=== PATIENT | female | born 1960 | race Caucasian/White ===

== ENCOUNTER 2021-12-21 10:06 | Emergency (ER) | payer MEDICARE, MEDICAID, SELFPAY ==
[2021-12-21 10:30] VITALS: BP 149/84; PULSE 75; RESP 18; TEMP 36.8; O2SAT 92; BMI 35.4
[2021-12-21 10:37] VITALS: BP 170/95; PULSE 70; RESP 18; O2SAT 94
--- NOTE | 2021-12-21 10:39 | ECG_ITS ---
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 Measurements Intervals [place] Rate: 71 P: 58 ID: [id number] QRS: 7 QRSD: 134 T: 59 QT: 428 QTc: 468 Interpretive Statements SINUS RHYTHM RIGHT BUNDLE BRANCH BLOCK [120+ ms QRS DURATION, UPRIGHT V1, 40+ ms S IN I/aVL/V4/V5/V6] POSSIBLE ANTERIOR MYOCARDIAL INFARCTION , OF INDETERMINATE AGE [30 ms Q WAVE IN V3/V4, OR R < 0.2 mV IN V4] Compared to ECG 05/03/2018 12:48:47 Indeterminate axis no longer present Myocardial infarct finding still present Electronically Signed On 12-21-2021 18:25:03 CDT by Angela Romero M.D. [id number]
--- NOTE | 2021-12-21 10:39 | CT_ITS ---
WS: [id number] CT HEAD TECHNIQUE: Noncontrast CT of the head obtained from the skullbase to the vertex. CLINICAL INFORMATION: weakness and multiple falls recently COMPARISON: CT DLP: 1702.[address] scans at [facility] use at least one of these dose optimization techniques: automated e xposure control; mA and/or kV adjustment per patient size (includes targeted exams where dose is matc hed to clinical indication); or iterative reconstruction. FINDINGS: No evidence of intracranial hemorrhage or mass effect. Prior postoperative changes LEFT frontotempora l craniotomy. Underlying encephalomalacia. Ex vacuo dilatation LEFT lateral ventricle. This is unchan ged from previous. Unchanged encephalomalacia in the underlying LEFT frontal lobe and LEFT anterior t emporal lobe. 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 Moderate small vessel changes. Moderate parenchymal volume loss. Tiny chronic lacunar infarcts RIGHT basal ganglia and thalamus. Paranasal sinuses and mastoid air cells are well aerated. Normal posterio r nasopharynx. CT/CT head wo con* [id number] IMPRESSION: 1. No evidence of intracranial hemorrhage or mass effect. 2. No acute intracranial findings and no changes from . 3. Moderate small vessel changes with moderate parenchymal volume loss. 4. Prior postoperative changes LEFT MCA and anterior communicating artery aneu rysm clips. 5. LEFT frontal temporal craniotomy with underlying encephalomalacia and ex va cuo dilatation LEFT lateral ventricle unchanged.
--- NOTE | 2021-12-21 10:39 | XR_ITS ---
WS: [id number] XR chest 1V portable [id number] REASON FOR EXAM: weakness FINDINGS: Chest is unchanged compared to 05/03/2018. Moderate tortuosity the thoracic aorta without aneurysmal dilatation. The heart is not enlarged. No acute pulmonary parenchymal or pleural abnormality. Mild to moderate degenerative spondylosis in the mid and lower thoracic spine. XR/XR chest 1V portable [id number] IMPRESSION: No acute chest abnormality.
--- NOTE | 2021-12-21 10:56 | W.ED.WEAKNES ---
HPI - Weakness General: Chief complaint: Weakness Stated complaint: DIZZY/ WEAK/ CONFUSED Time Seen by Provider: 12/21/21 10:39 History of Present Illness: Patient is a 61-year-old female comes to the ED via EMS for generalized weakness. Patient is a resident at [facility]. Past medical history of vascular dementia, seizure disorder, COPD. Patient says she has been having a cough and shortness of breath for the past week. She says her cough is productive and she has a yellow sputum that she coughs up. She also endorses generalized weakness as well. This morning she was walking out of the bathroom and accidentally ran into edge of door causing her to fall backwards. She landed on her buttocks and says that she is having some left hip pain. Denies any head trauma or loss of consciousness. Associated symptoms: Denies chest pain, chills, dysuria, fever(s), headache(s), nausea or vomiting Review of Systems Const: Reports: fatigue (Generalized weakness); Denies: fever(s) or chills Eyes: Denies: change in vision or eye discomfort ENMT: Denies: throat pain, odynophagia, nasal discharge or nasal congestion Card: Denies: chest pain, palpitations, edema, swelling of feet/ankles, dyspnea on exertion or orthopnea Resp: Denies: dyspnea, productive cough or non-productive cough GI: Denies: abdominal pain, nausea, vomiting, diarrhea, constipation or hematochezia : Denies: flank pain, dysuria or hematuria Musc: Reports: extremity pain (left hip pain); Denies: neck pain, back pain or extremity swelling Skin/Breast: Denies: rash or new lesions Neuro: Denies: headache(s), numbness in extremities or weakness in extremities PFS ED PFSH: Medical History COPD (chronic obstructive pulmonary disease) CVA (cerebral vascular accident) Dementia, vascular GERD (gastroesophageal reflux disease) HTN (hypertension) Hyperlipidemia Incontinence in female Seizure disorder Vitamin D deficiency Surgical History H/O brain surgery H/O excision of epidermal inclusion cyst History of 2 sections Family History Brother Hodgkins disease Father Stroke Physical Exam Const: COMMON NORMALS: patient oriented x3 and alert GENERAL APPEARANCE: cooperative HENMT: COMMON NORMALS: normocephalic HEAD & SCALP: normocephalic MOUTH: Normal oral and palatal mucosa present THROAT: posterior oropharynx normal and uvula midline Neck/C-Spine: COMMON NORMALS: supple GENERAL: Yes normal visual inspection Resp: COMMON NORMALS: normal respiratory effort, No retractions and No use of accessory muscles AUSCULTATION: wheezes expiratory wheezes and throughout Cardio: COMMON NORMALS: regular rate, regular rhythm, S1 normal heart sound present, S2 normal heart sound present, No gallops present (Cardio), No clicks present (Cardio), No murmurs present (Cardio) and Peripheral pulses 2+ throughout RATE: regular rate RHYTHM: regular rhythm HEART SOUNDS: S1 normal heart sound present and S2 normal heart sound present PERIPHERAL PULSES: Peripheral pulses 2+ throughout GI: COMMON NORMALS: Normal to inspection, nondistended, normoactive bowel sounds present, Soft to palpation, non-tender and no masses PALPATION: Yes Soft to palpation : COMMON NORMALS: Yes no CVA tenderness BLADDER/KIDNEY EXAM: Yes no CVA tenderness Back/Pelvis: COMMON NORMALS: no CVA tenderness Extremity: COMMON NORMALS: normal to inspection Neuro: COMMON NORMALS: patient oriented x3 and moves all extremities SENSORIUM/ORIENTATION: Yes alert Skin: GENERAL SKIN EXAM: dry skin Course Vital Signs: Vital signs: Vital Signs Temperature 98.2 F 12/21/21 10:30 Pulse Rate 75 12/21/21 16:14 Respiratory Rate 18 12/21/21 16:14 Blood Pressure 148/82 12/21/21 16:14 Pulse Oximetry 92 12/21/21 16:14 MDM - Weakness Medical Decision Making Patient is a 61-year-old female comes to the ED via EMS for generalized weakness. Patient is a resident at [facility]. Past medical history of vascular dementia, seizure disorder, COPD. Patient says she has been having a cough, shortness of breath and generalized weakness for the past week. This morning she had an accidental fall in the bathroom when she bumped into a door in endorses some left hip pain. Vitals are stable. O2 sat has been above 92% on room air here in the ED. Patient does have some wheezing upon auscultation. CBC and CMP were unremarkable. D-dimer normal at 0.41. Covid was negative. Troponins negative. UA was unremarkable. BNP 57. EKG showed normal sinus rhythm with no ST segment elevation or depression seen. Chest x-ray showed no acute findings. Head CT showed no acute findings. Left hip x-ray showed no acute fractures. Patient was stable for discharge back to detention. Patient diagnosed with bronchitis and fall and was sent with a prescription for prednisone and doxycycline. She was told to follow-up with their PCP in the next 3 to 5 days for reevaluation. Return to ED precautions given. Patient understood and agreed with plan. Lab Data I reviewed the patient's lab results. : 12/21/21 10:54 12/21/21 10:54 Radiology Impressions Chest X-Ray 12/21/21 10:39 IMPRESSION: No acute chest abnormality. Head CT 12/21/21 10:39 IMPRESSION: 1. No evidence of intracranial hemorrhage or mass effect. 2. No acute intracranial findings and no changes from . 3. Moderate small vessel changes with moderate parenchymal volume loss. 4. Prior postoperative changes LEFT MCA and anterior communicating artery aneurysm clips. 5. LEFT frontal temporal craniotomy with underlying encephalomalacia and ex vacuo dilatation LEFT lateral ventricle unchanged. Hip/Pelvis X-Ray 12/21/21 11:09 IMPRESSION: No acute abnormality. Laboratory Results WBC 7.0 10^3/uL (4.0-10.0) 12/21/21 10:54 RBC 4.87 10^6/uL (4.1-5.3) 12/21/21 10:54 Hgb 14.4 g/dL (11.5-15.3) 12/21/21 10:54 Hct 43.4 % (37.0-47.0) 12/21/21 10:54 MCV 89.1 fl (81-99) 12/21/21 10:54 MCH 29.6 pg (28.0-34.0) 12/21/21 10:54 MCHC 33.2 g/dL (30.0-36.0) 12/21/21 10:54 RDW 13.7 % (12.1-15.1) 12/21/21 10:54 Plt Count 210 10^3/cmm (130-400) 12/21/21 10:54 MPV 10.7 fL (7.4-10.4) H 12/21/21 10:54 Neut % (Auto) 54.4 % 12/21/21 10:54 Lymph % (Auto) 32.0 % 12/21/21 10:54 [place] % (Auto) 7.3 % 12/21/21 10:54 Eos % (Auto) 5.1 % 12/21/21 10:54 Baso % (Auto) 0.9 % 12/21/21 10:54 Neut # (Auto) 3.82 10^3/uL (1.8-7.7) 12/21/21 10:54 Lymph # (Auto) 2.2 10^3/uL (0.8-4.8) 12/21/21 10:54 [place] # (Auto) 0.5 10^3/uL (0.2-0.9) 12/21/21 10:54 Eos # (Auto) 0.4 10^3/uL (0.0-0.8) 12/21/21 10:54 Baso # (Auto) 0.1 10^3/uL (0.0-0.1) 12/21/21 10:54 Nucleated RBC % (auto) 0 % 12/21/21 10:54 Nucleated RBCs # 0.0 /100WBC 12/21/21 10:54 D-Dimer 0.41 ug/mIFEU (0-0.59) 12/21/21 11:55 Sodium 144 mmol/L (136-145) 12/21/21 10:54 Potassium 3.9 mmol/L (3.5-5.1) 12/21/21 10:54 Chloride 107 mmol/L (98-107) 12/21/21 10:54 Carbon Dioxide 27 mmol/L (22-29) 12/21/21 10:54 Anion Gap 13.9 (5-19) 12/21/21 10:54 BUN 11 mg/dL (8-23) 12/21/21 10:54 Creatinine 0.8 mg/dL (0.5-0.9) 12/21/21 10:54 GFR Calculation 72.9 mL/min (90-130) L 12/21/21 10:54 Glucose 100 mg/dL (65-115) 12/21/21 10:54 Calculated Osmolality 297 mOsm/kg (285-295) H 12/21/21 10:54 Calcium 9.2 mg/dL (8.5-10.5) 12/21/21 10:54 Total Bilirubin 0.3 mg/dL (0.15-1.2) 12/21/21 10:54 AST 18 U/L (0-32) 12/21/21 10:54 ALT 15 U/L (0-33) 12/21/21 10:54 Alkaline Phosphatase 112 IU/L (35-105) H 12/21/21 10:54 Troponin T Baseline 15 ng/L (0-10) H 12/21/21 10:54 Troponin T 120 Minute 15.30 ng/L (0-10) H 12/21/21 12:34 Delta Troponin T 0.30 ABS# (0-10) 12/21/21 12:34 NT-Pro-B Natriuret Pep 57 pg/mL (0-125) 12/21/21 10:54 Total Protein 7.1 g/dL (6.6-8.7) 12/21/21 10:54 Albumin 3.7 g/dL (3.5-5.2) 12/21/21 10:54 Globulin 3.4 g/dL (1.3-4.6) 12/21/21 10:54 Lipase 16 U/L (13-60) 12/21/21 10:54 Urine Color Yellow (Yellow) 12/21/21 14:58 Urine Appearance Clear (CLEAR) 12/21/21 14:58 Urine pH 6.5 (5-7) 12/21/21 14:58 Ur Specific [place] 1.015 (1.005-1.030) 12/21/21 14:58 Urine Protein Neg (Negative) 12/21/21 14:58 Urine Glucose (UA) Norm (Normal) 12/21/21 14:58 Urine Ketones Negative (Negative) 12/21/21 14:58 Urine Blood Neg (Negative) 12/21/21 14:58 Urine Nitrate Negative (Negative) 12/21/21 14:58 Urine Bilirubin Neg (Negative) 12/21/21 14:58 Urine Urobilinogen 1 mg/dL (Negative) H 12/21/21 14:58 Ur Leukocyte Esterase Negative (Negative) 12/21/21 14:58 Nasal Influ A H1 2009 PCR Not detected (NOT DETECT) 12/21/21 11:25 Coronavirus 229E (PCR) Not detected (NOT DETECT) 12/21/21 11:25 Influenza A (H1) PCR Not detected (NOT DETECT) 12/21/21 11:25 Influenza A (H3) PCR Not detected (NOT DETECT) 12/21/21 11:25 Influenza Type A (PCR) Not detected (NOT DETECT) 12/21/21 11:25 Influenza Type B (PCR) Not detected (NOT DETECT) 12/21/21 11:25 SARS-CoV-2 (PCR) Not detected (NOT DETECT) 12/21/21 11:25 EKG Data EKG 1: EKG interpretation date: 12/21/21 Interpretation: Sinus rhythm, no ST segment elevation or depression seen. 71 bpm Discharge Plan Discharge Patient Disposition: Home Clinical Impression: Bronchitis Fall Qualifiers: Encounter type: initial encounter Qualified Code(s): W19.XXXA - Unspecified fall, initial encounter Condition: Stable Prescriptions: New doxycycline hyclate 100 mg capsule 100 mg PO BID 10 Days Qty: 20 0RF prednisone 20 mg tablet 20 mg PO BID 5 Days Qty: 10 0RF No Action clopidogrel [Plavix] 75 mg tablet 75 mg PO DAILY 0RF ergocalciferol (vitamin D2) 50,000 unit tablet See Rx Instructions PO .COMPLEX 0RF Rx Instructions: one tablet po weekly on Sunday PO ; lamotrigine 150 mg tablet 75 mg PO BID 0RF pantoprazole 20 mg tablet,delayed release (DR/EC) 20 mg PO BID 0RF budesonide-formoterol [Symbicort] 80-4.5 mcg/actuation HFA aerosol inhaler 2 puff INHALATION BID 0RF tamsulosin 0.4 mg capsule 0.4 mg PO DAILY 0RF quetiapine [Seroquel] 100 mg tablet 100 mg PO .hs 0RF simvastatin 20 mg tablet 20 mg PO DAILY 0RF metoprolol succinate [Toprol XL] 50 mg tablet extended release 24 hr 50 mg PO DAILY 0RF acetaminophen [Tylenol Extra Strength] 500 mg tablet 500 - 1,000 mg PO Q4H PRN0RF Rx Instructions: for pain or elevated temp dextromethorphan-guaifenesin [Diabetic Tussin DM] 10-100 mg/5 mL liquid 10 ml PO Q4H PRN0RF nystatin 100,000 unit/gram powder 1 applic TOPICAL DAILY 0RF doxycycline monohydrate 100 mg capsule 100 mg PO BID Qty: 14 0RF albuterol sulfate 90 mcg/actuation HFA aerosol inhaler 2 puff inhalation 6XD PRN (Reason: shortness of breath or wheezing) Qty: 8.5 0RF quetiapine [Seroquel] 50 mg tablet 50 mg PO .AM Qty: 30 0RF Discharge Orders: Discharge ED (Routine); Ordered 12/21/21 Ordered By: Shakir Aquino Referrals: Jr Cardenas MD [Primary Care Provider] - Discharge Diet: Regular Discharge Activity: Increase activity as tolerated Patient Instructions: Acute Bronchitis (ED) Activity Restrictions/Additional Instructions: Follow-up with medical provider as directed in the next 3 to 5 days for reevaluation. Take medications as prescribed. Return to the ER or your medical provider if condition worsens. Please read and understand discharge instructions. Thank you for choosing [facility] for your healthcare needs today. Please realize this is an emergency room and that we are providing you with a medical screening exam and this may not be complete and all inclusive of all the testing and or work up that you may need to determine your ailment or severity of your illness. It is very important that you follow up as instructed or that you return to the Emergency Department should you have concerns or if your condition changes or worsens in any way. Coding Level of Care Code ED Public Health Technologist for Donna Fwd Exam Comprehensive
[2021-12-21 11:00] LABS: Basophils # 0.1 10^3/uL (0.0-0.1); Basophils % 0.9 %; Eosinophils # 0.4 10^3/uL (0.0-0.8); Eosinophils % 5.1 %; Hematocrit 43.4 % (37.0-47.0); Hemoglobin 14.4 g/dL (11.5-15.3); Lymphocytes # 2.2 10^3/uL (0.8-4.8); Mean Corpuscular HGB Conc 33.2 g/dL (30.0-36.0); Mean Corpuscular Hemoglobin 29.6 pg (28.0-34.0); Mean Corpuscular Volume 89.1 fl (81-99); Mean Platelet Volume 10.7 fL (7.4-10.4); Monocytes # 0.5 10^3/uL (0.2-0.9); Monocytes % 7.3 %; Neutrophils # 3.82 10^3/uL (1.8-7.7); Neutrophils % 54.4 %; Nucleated Red Blood Cells % 0 %; Platelet Count 210 10^3/cmm (130-400); Red Blood Count 4.87 10^6/uL (4.1-5.3); Red Cell Distribution Width 13.7 % (12.1-15.1)
--- NOTE | 2021-12-21 11:09 | XR_ITS ---
WS: [id number] XR hip LT 2-3V wo/w pel* [id number] REASON FOR EXAM: fall with hip pain FINDINGS: No acute fracture. Mild to moderate narrowing of the left hip joint space with subchondral sclerosis in the femoral head and acetabulum. Superior and inferior pubic ramus are intact. No soft tissue abnormality. XR/XR hip LT 2-3V wo/w pel* [id number] IMPRESSION: No acute abnormality.
[2021-12-21 11:21] LABS: Slide Review Slide Review Perform
[2021-12-21 11:23] LABS: Troponin(5th) Baseline 15 ng/L (0-10)
[2021-12-21 11:31] LABS: Alanine Aminotransferase 15 U/L (0-33); Albumin Level 3.7 g/dL (3.5-5.2); Alkaline Phosphatase 112 IU/L (35-105); Anion Gap 13.9 (5-19); Aspartate Amino Transferase 18 U/L (0-32); Blood Urea Nitrogen 11 mg/dL (8-23); Calcium 9.2 mg/dL (8.5-10.5); Carbon Dioxide 27 mmol/L (22-29); Chloride 107 mmol/L (98-107); Globulin 3.4 g/dL (1.3-4.6); Glomerular Filtration Rate 72.9 mL/min (90-130); Glucose 100 mg/dL (65-115); Lipase 16 U/L (13-60); NT Pro B Type Natriuretic Pept 57 pg/mL (0-125); Osmolality Calculated 297 mOsm/kg (285-295); Potassium 3.9 mmol/L (3.5-5.1); Sodium 144 mmol/L (136-145); Total Bilirubin 0.3 mg/dL (0.15-1.2); Total Protein 7.1 g/dL (6.6-8.7)
[2021-12-21] MEDS: ipratropium-albuterol 3 mL Neb 6 ML INHALATION (12:08)
[2021-12-21 12:10] VITALS: PULSE 67; RESP 22; O2SAT 99
[2021-12-21 12:12] VITALS: PULSE 76
[2021-12-21 12:22] LABS: D Dimer 0.41 ug/mIFEU (0-0.59)
--- NOTE | 2021-12-21 12:39 | ECG_ITS ---
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 Measurements Intervals [place] Rate: 68 P: 54 [place]: 162 QRS: 2 QRSD: 135 T: 62 QT: 442 QTc: 470 Interpretive Statements SINUS RHYTHM INDETERMINATE AXIS RIGHT BUNDLE BRANCH BLOCK POSSIBLE ANTERIOR MYOCARDIAL INFARCTION , OF INDETERMINATE AGE Compared to ECG 12/21/2021 10:49:43 Indeterminate axis now present Myocardial infarct finding still present Electronically Signed On 12-21-2021 18:30:23 CDT by Angela Romero M.D. [id number]
[2021-12-21 12:41] VITALS: BP 170/95; PULSE 68; RESP 21; O2SAT 96
[2021-12-21 13:25] LABS: Adenovirus Not Detected (NOT DETECT); Chlamydia Pneumoniae Not Detected (NOT DETECT); Coronavirus 229E,HKU1,NL63,OC4 Not Detected (NOT DETECT); Human Metapneumovirus Not Detected (NOT DETECT); Human Rhinovirus/Enterovirus Not Detected (NOT DETECT); Influenza A Not Detected (NOT DETECT); Influenza A H1 Not Detected (NOT DETECT); Influenza A H1-2009 Not Detected (NOT DETECT); Influenza A H3 Not Detected (NOT DETECT); Influenza B Not Detected (NOT DETECT); Mycoplasma Pneumoniae Not Detected (NOT DETECT); Parainfluenza Virus Type 1 Not Detected (NOT DETECT); Parainfluenza Virus Type 2 Not Detected (NOT DETECT); Parainfluenza Virus Type 3 Not Detected (NOT DETECT); Parainfluenza Virus Type 4 Not Detected (NOT DETECT); Respiratory Syncytial Virus A Not Detected (NOT DETECT); Respiratory Syncytial Virus B Not Detected (NOT DETECT); SARS-COV-2 Not Detected (NOT DETECT)
[2021-12-21 14:07] LABS: Results from Genmark
[2021-12-21 15:08] LABS: Add Urine Microscopic? NO; Charge for UA Resulting for Rev
[2021-12-21 15:31] LABS: Bilirubin Urine Neg (Negative); Blood Urine Neg (Negative); Glucose Urine UA Norm (Normal); Ketones Urine Negative (Negative); Leukocyte Esterase Urine Negative (Negative); Nitrate Urine Negative (Negative); Protein Urine Neg (Negative); Specific Gravity, Urine 1.015 (1.005-1.030); Urine Appearance Clear (CLEAR); Urine Color Yellow (Yellow); Urobilinogen Urine 1 mg/dL (Negative); pH Urine 6.5 (5-7)
[2021-12-21 16:14] VITALS: BP 148/82; PULSE 75; RESP 18; O2SAT 92
== END 2021-12-21 17:25 | disposition home or self-care (01) ==
PROVIDERS: Emergency Provider Physician Assistant; PCP Internal Medicine
DX: J44.9 Chronic obstructive pulmonary disease, unspecified (principal); F01.50 Vascular dementia, unspecified severity, without behavioral disturbance, psychotic disturbance, mood disturbance, and anxiety; G40.909 Epilepsy, unspecified, not intractable, without status epilepticus; I10 Essential (primary) hypertension; E78.5 Hyperlipidemia, unspecified; E55.9 Vitamin D deficiency, unspecified; Z86.73 Personal history of transient ischemic attack (TIA), and cerebral infarction without residual deficits
CPT/HCPCS: 70450; 71045; 73502; 80053; 81003; 83690; 83880; 84484; 85025; 85378; 87631; 87635; 93005; 94640; 99284

== ENCOUNTER → 2021-12-29 14:58 | Outpatient (BNVA) | payer MEDICARE, MEDICAID, SELFPAY | PROVIDERS: PCP Internal Medicine; Referring Provider Nurse Practitioner Family; Visit Provider Obstetrics & Gynecology | DX: Z01.419 Encounter for gynecological examination (general) (routine) without abnormal findings (principal) | CPT/HCPCS: 87624 ==

== ENCOUNTER 2022-04-11 09:42 | Outpatient (CLI) | payer MEDICARE, MEDICAID, SELFPAY ==
[2022-04-11 10:04] LABS: Basophils % 0.4 %; Eosinophils # 0.1 10^3/uL (0.0-0.8); Eosinophils % 1.2 %; Hematocrit 42.5 % (37.0-47.0); Hemoglobin 13.6 g/dL (11.5-15.3); Lymphocytes % 24.6 %; Mean Corpuscular Hemoglobin 28.9 pg (28.0-34.0); Mean Corpuscular Volume 90.4 fl (81-99); Mean Platelet Volume 11.3 fL (7.4-10.4); Monocytes # 0.5 10^3/uL (0.2-0.9); Monocytes % 5.6 %; Neutrophils # 5.58 10^3/uL (1.8-7.7); Nucleated Red Blood Cells % 0 %; Platelet Count 182 10^3/cmm (130-400); Red Cell Distribution Width 13.3 % (12.1-15.1); White Blood Count 8.2 10^3/uL (4.0-10.0)
[2022-04-11 10:25] LABS: Anion Gap 13.9 (5-19); Blood Urea Nitrogen 7 mg/dL (8-23); Calcium 8.5 mg/dL (8.5-10.5); Carbon Dioxide 28 mmol/L (22-29); Chloride 106 mmol/L (98-107); Glomerular Filtration Rate 84.8 mL/min (90-130); Glucose 123 mg/dL (65-115); Osmolality Calculated 297 mOsm/kg (285-295); Potassium 3.9 mmol/L (3.5-5.1); Sodium 144 mmol/L (136-145)
== END 2022-04-11 09:43 | disposition home or self-care (01) ==
PROVIDERS: PCP Internal Medicine; Visit Provider Internal Medicine
DX: Z01.89 Encounter for other specified special examinations (principal)
CPT/HCPCS: 80048; 85025

== ENCOUNTER 2022-09-11 17:37 | Outpatient (CLI) | payer MEDICARE, MEDICAID, SELFPAY ==
[2022-09-11 19:00] LABS: Basophils % 0.4 %; Eosinophils # 0.3 10^3/uL (0.0-0.8); Eosinophils % 3.6 %; Hematocrit 42.9 % (37.0-47.0); Hemoglobin 13.6 g/dL (11.5-15.3); Lymphocytes # 2.7 10^3/uL (0.8-4.8); Lymphocytes % 36.9 %; Mean Corpuscular HGB Conc 31.7 g/dL (30.0-36.0); Mean Corpuscular Hemoglobin 29.8 pg (28.0-34.0); Mean Corpuscular Volume 93.9 fl (81-99); Mean Platelet Volume 11.1 fL (7.4-10.4); Monocytes # 0.5 10^3/uL (0.2-0.9); Monocytes % 7.5 %; Neutrophils # 3.69 10^3/uL (1.8-7.7); Neutrophils % 51.5 %; Nucleated Red Blood Cells % 0 %; Platelet Count 209 10^3/cmm (130-400); Red Blood Count 4.57 10^6/uL (4.1-5.3); Red Cell Distribution Width 14.3 % (12.1-15.1); White Blood Count 7.2 10^3/uL (4.0-10.0)
[2022-09-11 19:05] LABS: Bilirubin Urine Neg (Negative); Blood Urine Neg (Negative); Glucose Urine UA Norm (Normal); Ketones Urine 1+ (Negative); Nitrate Urine Negative (Negative); Protein Urine Neg (Negative); Urine Appearance Hazy (CLEAR); Urine Color Dark Yellow (Yellow); Urobilinogen Urine 1 mg/dL (Negative); pH Urine 6 (5-7)
[2022-09-11 19:06] LABS: Add Urine Culture? Yes; Bacteria Urine 4+ /hpf; Leukocyte Esterase Urine Negative (Negative); RBC Urine 0-4 /hpf (0-2); Squamous Epithelial Cell Urine 0-4 /hpf (0-5)
[2022-09-11 19:19] LABS: Anion Gap 13.8 (5-19); Blood Urea Nitrogen 13 mg/dL (8-23); Calcium 9.4 mg/dL (8.5-10.5); Carbon Dioxide 30 mmol/L (22-29); Chloride 104 mmol/L (98-107); Glomerular Filtration Rate 84.8 mL/min (90-130); Glucose 82 mg/dL (65-115); Osmolality Calculated 297 mOsm/kg (285-295); Potassium 3.8 mmol/L (3.5-5.1); Sodium 144 mmol/L (136-145)
== END 2022-09-11 17:38 | disposition home or self-care (01) ==
PROVIDERS: PCP Internal Medicine; Visit Provider Internal Medicine
DX: R41.82 Altered mental status, unspecified (principal)
CPT/HCPCS: 80048; 81001; 85025; 87086

== ENCOUNTER 2022-09-12 13:38 | Emergency (ER) | payer MEDICARE, MEDICAID, SELFPAY ==
[2022-09-12 13:42] VITALS: BP 149/98; PULSE 78; RESP 16; TEMP 36.6; O2SAT 91
--- NOTE | 2022-09-12 13:55 | W.ED.FALL ---
HPI - Fall General: Chief Complaint: Recheck/Abnormal Lab/Rx Stated Complaint: Fall Time Seen by Provider: 09/12/22 13:52 Source: patient Mode of arrival: ambulatory History of Present Illness: 62-year-old female who presents to the emergency room from the long-term reported that she has had several falls is confused today had stat labs done yesterday they were not completed yet states sent her here to have them completed. Patient has a history of significant cognitive deficit previous CVAs and hypertension is now concerned about a new CVA. She is awake and alert she attempts answer questions but is questionable how accurate her answers are. Denies any chest pain or abdominal pain denies any shortness of breath dysuria urgency or frequency. No vomiting no diarrhea MD complaint: fall Onset (ago): minute(s) Fall from: standing Place fall occurred: long-term/SNF Loss of consciousness: None Prolonged down time: no Symptoms prior to fall: dizziness Associated symptoms-after fall: Denies abdominal pain, chest pain, confusion, difficulty walking, headache(s), hematuria, lightheadedness, neck pain, numbness, short of breath, vertigo or weakness Review of Systems Const: Denies: fever(s), chills, body aches, change in appetite, fatigue or malaise ENMT: Denies: throat pain, ear or mastoid pain, nasal discharge or nasal congestion Card: Denies: chest pain or lightheadedness Resp: Denies: dyspnea, productive cough or non-productive cough GI: Denies: abdominal pain : Denies: hematuria Musc: Denies: neck pain Skin/Breast: Denies: rash or pruritus Neuro: Denies: headache(s), difficulty walking, vertigo or confusion PFSH ED PFSH: Medical History COPD (chronic obstructive pulmonary disease) CVA (cerebral vascular accident) Dementia, vascular GERD (gastroesophageal reflux disease) HTN (hypertension) Hyperlipidemia Incontinence in female Seizure disorder Vitamin D deficiency Surgical History H/O brain surgery H/O excision of epidermal inclusion cyst History of 2 sections Family History Brother Hodgkins disease Father Stroke Physical Exam Const: GENERAL APPEARANCE: cooperative and comfortable ORIENTATION/CONSCIOUSNESS: Yes awake HENMT: COMMON NORMALS: normocephalic, atraumatic and hearing grossly normal bilaterally HEAD & SCALP: normocephalic and atraumatic Resp: COMMON NORMALS: normal respiratory effort, No retractions, No use of accessory muscles and clear to auscultation bilaterally AUSCULTATION: clear to auscultation bilaterally Cardio: COMMON NORMALS: regular rate, regular rhythm and No murmurs present (Cardio) RATE: regular rate RHYTHM: regular rhythm GI: COMMON NORMALS: Soft to palpation and No hepatosplenomegaly present AUSCULTATION: Yes normoactive bowel sounds PALPATION: Yes Soft to palpation, No Tenderness to palpation present (GI), No Guarding due to palpation present (GI) and Yes No hepatosplenomegaly present Extremity: COMMON NORMALS: normal to inspection, capillary refill normal, no clubbing, cyanosis or edema, no calf tenderness and no pedal edema Skin: COMMON NORMALS: no rashes or lesions noted GENERAL SKIN EXAM: no rashes or lesions noted Course Vital Signs: Vital signs: Vital Signs Temperature 97.9 F 09/12/22 13:42 Pulse Rate 78 09/12/22 13:42 Respiratory Rate 16 09/12/22 13:42 Blood Pressure 149/98 09/12/22 13:42 Pulse Oximetry 91 09/12/22 13:42 Oxygen Delivery Me thod 09/12/22 13:42 MDM - Fall Medical Decision Making Labs imaging reviewed. No significant findings made. She appears to be at her baseline no acute issue ongoing we will go ahead. Chest x-ray read by radiologist possible left lower lobe pneumonia she has normal white count with no significant differential. I do not believe this reflects pneumonia suspect it is more atelectasis on exam her lung sounds are clear. She can be monitored for this at the long-term. Medical Records I reviewed the patient's medical records. Lab Data I reviewed the patient's lab results. 09/12/22 14:26 09/12/22 15:05 Radiology Impressions Chest X-Ray 09/12/22 14:00 Impression: 1. Minimal patchy opacity in left lower lobe which could represent pneumonia and/or atelectasis. 2. Atherosclerosis. Head CT 09/12/22 14:00 IMPRESSION: 1. No evidence of intracranial hemorrhage or mass effect. 2. Moderate small vessel changes. Moderate parenchymal volume loss. 3. Prior postoperative changes LEFT MCA and anterior communicating artery aneurysm clips. 4. LEFT frontal craniotomy with encephalomalacia. Stable ex vacuo dilatation LEFT lateral ventricle. 5. No significant changes compared to previous. Pelvis X-Ray 09/12/22 14:57 Impression: Negative pelvis. Laboratory Results WBC 6.9 10^3/uL (4.0-10.0) 09/12/22 14: RBC 4.80 10^6/uL (4.1-5.3) 09/12/22 14:26 Hgb 14.4 g/dL (11.5-15.3) 09/12/22 14: Hct 44.6 % (37.0-47.0) 09/12/22 14: MCV 92.9 fl (81-99) 09/12/22 14: MCH 30.0 pg (28.0-34.0) 09/12/22 14: MCHC 32.3 g/dL (30.0-36.0) 09/12/22 14: RDW 14.2 % (12.1-15.1) 09/12/22 14: Plt Count 219 10^3/cmm (130-400) 09/12/22 14: MPV 10.7 fL (7.4-10.4) H 09/12/22 14: Neut % (Auto) 44.8 % 09/12/22 14: Lymph % (Auto) 43.8 % 09/12/22 14:26 [place] % (Auto) 6.8 % 09/12/22 14: Eos % (Auto) 3.8 % 09/12/22 14: Baso % (Auto) 0.7 % 09/12/22 14: Neut # (Auto) 3.09 10^3/uL (1.8-7.7) 09/12/22 14: Lymph # (Auto) 3.0 10^3/uL (0.8-4.8) 09/12/22 14: [place] # (Auto) 0.5 10^3/uL (0.2-0.9) 09/12/22 14:26 Eos # (Auto) 0.3 10^3/uL (0.0-0.8) 09/12/22 14:26 Baso # (Auto) 0.1 10^3/uL (0.0-0.1) 09/12/22 14:26 Nucleated RBC % (auto) 0 % 09/12/22 14: Nucleated RBCs # 0.0 /100WBC 09/12/22 14:26 Sodium 143 mmol/L (136-145) 09/12/22 15:05 Potassium 3.5 mmol/L (3.5-5.1) 09/12/22 15:05 Chloride 104 mmol/L (98-107) 09/12/22 15:05 Carbon Dioxide 32 mmol/L (22-29) H 09/12/22 15:05 Anion Gap 10.5 (5-19) 09/12/22 15:05 BUN 15 mg/dL (8-23) 09/12/22 15:05 Creatinine 0.7 mg/dL (0.5-0.9) 09/12/22 15:05 GFR Calculation 84.8 mL/min (90-130) L 09/12/22 15:05 Glucose 97 mg/dL (65-115) 09/12/22 15:05 Calculated Osmolality 297 mOsm/kg (285-295) H 09/12/22 15:05 Calcium 8.5 mg/dL (8.5-10.5) 09/12/22 15:05 Total Bilirubin 0.3 mg/dL (0.15-1.2) 09/12/22 15:05 AST 12 U/L (0-32) 09/12/22 15:05 ALT 12 U/L (0-33) 09/12/22 15:05 Alkaline Phosphatase 112 U/L (35-105) H 09/12/22 15:05 Total Protein 6.9 g/dL (6.6-8.7) 09/12/22 15:05 Albumin 3.9 g/dL (3.5-5.2) 09/12/22 15:05 Globulin 3.0 g/dL (1.3-4.6) 09/12/22 15:05 Urine Color Kathy (Yellow) 09/12/22 14:53 Urine Appearance Clear (CLEAR) 09/12/22 14:53 Urine pH 5 (5-7) 09/12/22 14:53 Ur Specific [place] 1.030 (1.005-1.030) 09/12/22 14:53 Urine Protein Neg (Negative) 09/12/22 14:53 Urine Glucose (UA) Norm (Normal) 09/12/22 14:53 Urine Ketones Negative (Negative) 09/12/22 14:53 Urine Blood Neg (Negative) 09/12/22 14:53 Urine Nitrate Negative (Negative) 09/12/22 14:53 Urine Bilirubin Neg (Negative) 09/12/22 14:53 Urine Urobilinogen 4 mg/dL (Negative) H 09/12/22 14:53 Ur Leukocyte Esterase Negative (Negative) 09/12/22 14:53 Discharge Plan Discharge Patient Disposition: Home Clinical Impression: Fall, Dementia Condition: Stable Prescriptions: No Action clopidogrel [Plavix] 75 mg tablet 75 mg PO DAILY ergocalciferol (vitamin D2) 50,000 unit tablet See Rx Instructions PO .COMPLEX Rx Instructions: one tablet po weekly on Sunday PO ; lamotrigine 150 mg tablet 75 mg PO BID pantoprazole 20 mg tablet,delayed release (DR/EC) 20 mg PO BID budesonide-formoterol [Symbicort] 80-4.5 mcg/actuation HFA aerosol inhaler 2 puff INHALATION BID tamsulosin 0.4 mg capsule 0.4 mg PO DAILY quetiapine [Seroquel] 100 mg tablet 100 mg PO .hs simvastatin 20 mg tablet 20 mg PO DAILY metoprolol succinate [Toprol XL] 50 mg tablet extended release 24 hr 50 mg PO DAILY acetaminophen [Tylenol Extra Strength] 500 mg tablet 500 - 1,000 mg PO Q4H PRN Rx Instructions: for pain or elevated temp dextromethorphan-guaifenesin [Diabetic Tussin DM] 10-100 mg/5 mL liquid 10 ml PO Q4H PRN nystatin 100,000 unit/gram powder 1 applic TOPICAL DAILY clobetasol 0.05 % cream 1 applic topical BID 14 Days Qty: 45 0RF Rx Instructions: use twice daily for two weeks only and then twice a week after that. doxycycline monohydrate 100 mg capsule 100 mg PO BID Qty: 14 0RF albuterol sulfate 90 mcg/actuation HFA aerosol inhaler 2 puff inhalation 6XD PRN (Reason: shortness of breath or wheezing) Qty: 8.5 0RF quetiapine [Seroquel] 50 mg tablet 50 mg PO .AM Qty: 30 0RF Discharge Orders: Discharge ED (Routine); Ordered 09/12/22 Ordered By: Avinash Oreilly Referrals: Jr Cardenas MD [Primary Care Provider] - Discharge Diet: Usual diet Discharge Activity: Resume usual activity Patient Instructions: Opioid Safety, Pain Management Activity Restrictions/Additional Instructions: Patient seen emergency room. She also reported falls. No signs of injury CT head and x-rays were negative. We will discharge patient back to the long-term. UA and remainder of labs are also normal normal follow-up with primary care physician Coding Level of Care Code ED [employer] Cleaning Machine Operator for Chg Fwd Exam Detailed
--- NOTE | 2022-09-12 14:00 | ECG_ITS ---
[facility] Test Date: 2022-09-12 Pat Name: Sherri Mcintyre Department: Room: Gender: Female Director Appointment: : 1960 Requested By: Avinash Umana Order Number: [id number] Mis MD: Seth Sebastian M.D. Measurements Intervals [place] Rate: 73 P: 78 MI: 155 QRS: -39 QRSD: 134 T: 7 QT: 438 QTc: 484 Interpretive Statements SINUS RHYTHM LEFT AXIS DEVIATION [QRS AXIS < -30] RIGHT BUNDLE BRANCH BLOCK [120+ ms QRS DURATION, UPRIGHT V1, 40+ ms S IN I/aVL/V4/V5/V6] POSSIBLE ANTERIOR MYOCARDIAL INFARCTION , OF INDETERMINATE AGE [30 ms Q WAVE IN V3/V4, OR R < 0.2 mV IN V4] MODERATE T-WAVE ABNORMALITY, CONSIDER LATERAL ISCHEMIA [-0.1+ mV T-WAVE IN I/aVL/V5/V6] Compared to ECG 12/21/2021 12:38:31 Left-axis deviation now present T-wave abnormality now present Possible ischemia now present Indeterminate axis no longer present Myocardial infarct finding still present Electronically Signed On 09-12-2022 16:15:53 GUARD LIEUTENANT by Seth Sebastian M.D. [id number]
--- NOTE | 2022-09-12 14:00 | CT_ITS ---
WS: [id number] CT HEAD TECHNIQUE: Noncontrast CT of the head obtained from the skullbase to the vertex. CLINICAL INFORMATION: fall/AMS COMPARISON: CT December 21, 2021 DLP: 992.[address] scans at [facility] use at least one of these dose optimization techniques: automated e xposure control; mA and/or kV adjustment per patient size (includes targeted exams where dose is matc hed to clinical indication); or iterative reconstruction. FINDINGS: No evidence of intracranial hemorrhage or mass effect. Ventricular system and basal cisterns are sandoval nt. Moderate small vessel changes with moderate parenchymal volume loss. Prior postoperative changes LEFT frontal temporal craniotomy. Ex vacuo dilatation LEFT lateral ventricle is unchanged. Prior aneu rysm clips LEFT MCA and anterior communicating artery. Encephalomalacia in the underlying LEFT fronta l and temporal lobes anteriorly. Tiny chronic lacunar infarcts RIGHT basal ganglia and thalamus.Paranasal sinuses and mastoid air cell s are well aerated. .Normal visualized soft tissues. CT/CT head wo con* [id number] IMPRESSION: 1. No evidence of intracranial hemorrhage or mass effect. 2. Moderate small vessel changes. Moderate parenchymal volume loss. 3. Prior postoperative changes LEFT MCA and anterior communicating artery aneu rysm clips. 4. LEFT frontal craniotomy with encephalomalacia. Stable ex vacuo dilatation L EFT lateral ventricle. 5. No significant changes compared to previous.
--- NOTE | 2022-09-12 14:00 | XR_ITS ---
WS: [id number] Portable AP upright chest, 09/12/2022 Clinical Data: dyspnea/cough Comparison: Portable chest, 12/21/2021 Findings: No nodules, masses or effusions are seen. The heart is normal. There is minimal patchy opac ity over the surface of the left diaphragm which could represent atelectasis and/or minimal pneumonia . The pulmonary vascularity is not increased. No pneumothorax is seen. The aortic arch and descending thoracic aorta show tortuosity. XR/XR chest 1V portable [id number] Impression: 1. Minimal patchy opacity in left lower lobe which could represent pneumonia an d/or atelectasis. 2. Atherosclerosis.
[2022-09-12 14:32] LABS: Basophils # 0.1 10^3/uL (0.0-0.1); Basophils % 0.7 %; Eosinophils # 0.3 10^3/uL (0.0-0.8); Eosinophils % 3.8 %; Hematocrit 44.6 % (37.0-47.0); Hemoglobin 14.4 g/dL (11.5-15.3); Lymphocytes % 43.8 %; Mean Corpuscular HGB Conc 32.3 g/dL (30.0-36.0); Mean Corpuscular Volume 92.9 fl (81-99); Mean Platelet Volume 10.7 fL (7.4-10.4); Monocytes # 0.5 10^3/uL (0.2-0.9); Monocytes % 6.8 %; Neutrophils # 3.09 10^3/uL (1.8-7.7); Neutrophils % 44.8 %; Nucleated Red Blood Cells % 0 %; Platelet Count 219 10^3/cmm (130-400); Red Cell Distribution Width 14.2 % (12.1-15.1); White Blood Count 6.9 10^3/uL (4.0-10.0)
--- NOTE | 2022-09-12 14:57 | XR_ITS ---
WS: [id number] Pelvis, AP portable supine, 09/12/2022 Clinical Data: fall Comparison: None. Findings: No fractures or dislocations are seen. The SI joints and pubic symphysis are intact. The soft tissues are not remarkable. Both hips are unremarkable XR/XR pelvis 1-2V* [id number] Impression: Negative pelvis.
[2022-09-12 15:05] LABS: Add Urine Microscopic? NO; Charge for UA Resulting for Rev
[2022-09-12 15:18] LABS: Bilirubin Urine Neg (Negative); Blood Urine Neg (Negative); Glucose Urine UA Norm (Normal); Ketones Urine Negative (Negative); Leukocyte Esterase Urine Negative (Negative); Nitrate Urine Negative (Negative); Protein Urine Neg (Negative); Urine Appearance Clear (CLEAR); Urine Color Amber (Yellow); Urobilinogen Urine 4 mg/dL (Negative); pH Urine 5 (5-7)
[2022-09-12 15:32] LABS: Alanine Aminotransferase 12 U/L (0-33); Albumin Level 3.9 g/dL (3.5-5.2); Alkaline Phosphatase 112 U/L (35-105); Anion Gap 10.5 (5-19); Aspartate Amino Transferase 12 U/L (0-32); Blood Urea Nitrogen 15 mg/dL (8-23); Calcium 8.5 mg/dL (8.5-10.5); Carbon Dioxide 32 mmol/L (22-29); Chloride 104 mmol/L (98-107); Glomerular Filtration Rate 84.8 mL/min (90-130); Glucose 97 mg/dL (65-115); Osmolality Calculated 297 mOsm/kg (285-295); Potassium 3.5 mmol/L (3.5-5.1); Sodium 143 mmol/L (136-145); Total Bilirubin 0.3 mg/dL (0.15-1.2); Total Protein 6.9 g/dL (6.6-8.7)
== END 2022-09-12 17:30 | disposition home or self-care (01) ==
PROVIDERS: Emergency Provider Family Medicine; PCP Internal Medicine
DX: F03.90 Unspecified dementia, unspecified severity, without behavioral disturbance, psychotic disturbance, mood disturbance, and anxiety (principal); Z79.02 Long term (current) use of antithrombotics/antiplatelets; J44.9 Chronic obstructive pulmonary disease, unspecified; Z86.73 Personal history of transient ischemic attack (TIA), and cerebral infarction without residual deficits; I10 Essential (primary) hypertension; E78.5 Hyperlipidemia, unspecified; W19.XXXA Unspecified fall, initial encounter
CPT/HCPCS: 36415; 70450; 71045; 72170; 80053; 81003; 85025; 93005; 99285

== ENCOUNTER 2022-12-18 21:37 | Emergency (ER) | payer MEDICARE, MEDICAID, SELFPAY ==
--- NOTE | 2022-12-18 21:44 | CTR_ITS ---
PROCEDURE INFORMATION: Exam: CT Cervical Spine Without Contrast Exam date and time: 12/18/2022 10:39 PM Age: 62 years old Clinical indication: Injury or trauma; Fall; Concussion/head injury TECHNIQUE: Imaging protocol: Computed tomography of the cervical spine without contrast. Radiation optimization: All CT scans at this facility use at least one of these dose optimization techniques: automated exposure control; mA and/or kV adjustment per patient size (includes targeted exams where dose is matched to clinical indication); or iterative reconstruction. REPORTING DATA: Count of CT and Cardiac NM exams in prior 12 months: This patient has received 3 known CTs and 0 known cardiac nuclear medicine studies in the 12 months prior to the current study. COMPARISON: CT head wo con* [id number] 12/18/2022 10:36 PM RADIATION DOSE METRICS: Total DLP (mGy-cm): 338.93 FINDINGS: Bones/joints: No acute fracture. Normal alignment. C2-C3: No significant disc bulge or herniation. No severe spinal canal stenosis. No significant neural foraminal narrowing. C3-C4: No significant disc bulge or herniation. No severe spinal canal stenosis. No significant neural foraminal narrowing. C4-C5: No significant disc bulge or herniation. No severe spinal canal stenosis. No significant neural foraminal narrowing. C5-C6: No significant disc bulge or herniation. No severe spinal canal stenosis. No significant neural foraminal narrowing. C6-C7: No significant disc bulge or herniation. No severe spinal canal stenosis. No significant neural foraminal narrowing. C7-T1: No significant disc bulge or herniation. No severe spinal canal stenosis. No significant neural foraminal narrowing. Lungs: Lung apices are normal. Soft tissues: Unremarkable. CT/CT cervical spin wo con* [id number] IMPRESSION: No acute findings.
--- NOTE | 2022-12-18 21:44 | ED_ITS ---
HPI - Fall General: Chief Complaint: Fall Stated Complaint: fall, head laceration Time Seen by Provider: 12/18/22 21:39 Source: patient and EMS Mode of arrival: EMS Limitations: no limitations History of Present Illness: 62-year-old female who is here from [facility] after a fall states she was transferring from a wheelchair and fell backwards and hit her head. She does have a laceration to her posterior scalp along with a headache she has some slight neck pain she denies any other injuries. She rates her pain a 3 out of 10 currently she does have a history of dementia she is at her baseline currently Associated symptoms-after fall: Reports headache(s) and neck pain; Denies abdominal pain or chest pain Review of Systems Const: Denies: fever(s), chills, body aches or change in appetite Eyes: Denies: blurry vision or eye discomfort ENMT: Denies: throat pain or dental pain Card: Denies: chest pain Resp: Denies: dyspnea GI: Denies: abdominal pain, nausea, vomiting or diarrhea : Denies: dysuria Musc: Reports: neck pain; Denies: back pain Skin/Breast: Denies: rash Neuro: Reports: headache(s) Psych: Denies: depression Bin/Lymph: Denies: easy bruising All/Imm: Denies: urticaria PFSH ED PFSH: Medical History COPD (chronic obstructive pulmonary disease) CVA (cerebral vascular accident) Dementia, vascular GERD (gastroesophageal reflux disease) HTN (hypertension) Hyperlipidemia Incontinence in female Seizure disorder Vitamin D deficiency Surgical History H/O brain surgery H/O excision of epidermal inclusion cyst History of 2 sections Family History Brother Hodgkins disease Father Stroke Physical Exam Const: COMMON NORMALS: no acute distress, patient oriented x3 and healthy appearing HENMT: COMMON NORMALS: normocephalic HEAD & SCALP: normocephalic OTHER: 1cm laceration to posterior scalp Eye: COMMON NORMALS: Equal, round and reactive pupils present and EOMs intact bilaterally PUPIL: Yes Equal, round and reactive pupils present Neck/C-Spine: COMMON NORMALS: full ROM and supple Chest: COMMONS NORMALS: normal inspection of the chest and normal palpation of entire chest wall Resp: COMMON NORMALS: normal respiratory effort, No retractions, No use of accessory muscles and clear to auscultation bilaterally AUSCULTATION: clear to auscultation bilaterally Cardio: COMMON NORMALS: regular rate, regular rhythm and No murmurs present (Cardio) RATE: regular rate RHYTHM: regular rhythm GI: COMMON NORMALS: Normal to inspection, nondistended, normoactive bowel sounds present, Soft to palpation, non-tender and no masses PALPATION: Yes Soft to palpation Extremity: COMMON NORMALS: normal to inspection and full ROM Neuro: COMMON NORMALS: patient oriented x3, moves all extremities and no focal motor deficits Psych: COMMON NORMALS: mental status grossly normal, Normal thought process present and cooperative THOUGHT PROCESS: Normal thought process present Skin: COMMON NORMALS: no rashes or lesions noted and no wounds GENERAL SKIN EXAM: no rashes or lesions noted Procedures Laceration Laceration 1: Site: scalp Size (cm): 2 Description: linear Depth: simple, single layer Local Anesthetic: lidocaine 1% Amount of anesthesia used (mL): 8 Pre-repair: wound explored and irrigated extensively Number of sutures: 2 Technique: other (blanquita) Course Vital Signs: Vital signs: Vital Signs Temperature 97.6 F 12/18/22 21:46 Pulse Rate 63 12/18/22 23:09 Respiratory Rate 18 12/18/22 23:09 Blood Pressure 143/65 12/18/22 23:09 Pulse Oximetry 94 12/18/22 23:09 Oxygen Delivery Me thod 12/18/22 23:09 MDM - Fall Medical Decision Making Patient presents here with a head laceration along with a subdural hemorrhage from the fall he did repair the laceration here I spoke to Kendy in [place] will transfer there for higher level of care with neurosurgery she has no altered mental status here and she is at her baseline. Lab Data 12/18/22 23:05 12/18/22 23:05 Radiology Impressions Cervical Spine CT 12/18/22 21:44 IMPRESSION: No acute findings. Head CT 12/18/22 21:44 IMPRESSION: 1. Left parietal region 9.2 mm thick extra-axial hemorrhage likely reflecting a subdural hematoma without significant mass effect with overlying soft tissue edema of the scalp. 2. Left frontotemporal craniotomy changes with associated frontotemporal lobe encephalomalacia similar to prior exam. 3. Large amount diffuse white matter disease likely reflecting chronic microvascular ischemic changes. 4. Left lateral ventricle ex vacuo dilation again seen with suspected aneurysm clips. Laboratory Results WBC 7.4 10^3/uL (4.0-10.0) 12/18/22 23:05 RBC 4.56 10^6/uL (4.1-5.3) 12/18/22 23:05 Hgb 13.4 g/dL (11.5-15.3) 12/18/22 23: Hct 42.1 % (37.0-47.0) 12/18/22 23: MCV 92.3 fl (81-99) 12/18/22 23: MCH 29.4 pg (28.0-34.0) 12/18/22 23: MCHC 31.8 g/dL (30.0-36.0) 12/18/22 23: RDW 13.9 % (12.1-15.1) 12/18/22 23: Plt Count 185 10^3/cmm (130-400) 12/18/22 23: MPV 10.5 fL (7.4-10.4) H 12/18/22 23: Neut % (Auto) 46.7 % 12/18/22 23: Lymph % (Auto) 41.5 % 12/18/22 23: [place] % (Auto) 8.1 % 12/18/22 23: Eos % (Auto) 3.1 % 12/18/22 23: Baso % (Auto) 0.5 % 12/18/22 23: Neut # (Auto) 3.46 10^3/uL (1.8-7.7) 12/18/22 23:05 Lymph # (Auto) 3.1 10^3/uL (0.8-4.8) 12/18/22 23:05 [place] # (Auto) 0.6 10^3/uL (0.2-0.9) 12/18/22 23:05 Eos # (Auto) 0.2 10^3/uL (0.0-0.8) 12/18/22 23:05 Baso # (Auto) 0.0 10^3/uL (0.0-0.1) 12/18/22 23:05 Nucleated RBC % (auto) 0 % 12/18/22 23:05 Nucleated RBCs # 0.0 /100WBC 12/18/22 23:05 Critical Care Time Critical Care Time: Critical Care Time: Yes Total Critical Care Time: 40 Attestation: The high probability of a clinically significant, sudden or life threatening deterioration of the patient's trauma system(s) required my full and direct attention, intervention and personal management. The critical care time is as shown. This time is in addition to time spent performing any reported procedures but includes the following: [x] Data and vital sign review and interpretation [x] Patient assessment, examination and intervention [x] Documentation [x] Medication orders and management Discharge Plan Discharge Patient Disposition: Xfer Short-Term Hosp Clinical Impression: Subdural hemorrhage, Fall, Laceration of head Condition: Stable Referrals: Jr Cardenas MD [Primary Care Provider] - Coding Level of Care Code ED Pallet Stone Inserter for Donna Brock
--- NOTE | 2022-12-18 21:44 | CTR_ITS ---
PROCEDURE INFORMATION: Exam: CT Head Without Contrast Exam date and time: 12/18/2022 10:36 PM Age: 62 years old Clinical indication: Injury or trauma; Fall; Blunt trauma (contusions or hematomas); Without loss of consciousness; Prior surgery; Surgery date: 6+ months; Surgery type: Brain aneurysm x 2 TECHNIQUE: Imaging protocol: Computed tomography of the head without contrast. Radiation optimization: All CT scans at this facility use at least one of these dose optimization techniques: automated exposure control; mA and/or kV adjustment per patient size (includes targeted exams where dose is matched to clinical indication); or iterative reconstruction. REPORTING DATA: Count of CT and Cardiac NM exams in prior 12 months: This patient has received 3 known CTs and 0 known cardiac nuclear medicine studies in the 12 months prior to the current study. COMPARISON: CT head wo con* [id number] 09/12/2022 2:05 PM RADIATION DOSE METRICS: Total DLP (mGy-cm): 1128.58 FINDINGS: Brain: Large amount diffuse white matter disease likely reflecting chronic microvascular ischemic changes. Cerebral ventricles: Left lateral ventricle ex vacuo dilation again seen with suspected aneurysm clips. Paranasal sinuses: Visualized sinuses are unremarkable. No fluid levels. Mastoid air cells: Visualized mastoid air cells are well aerated. Bones/joints: Left frontotemporal craniotomy changes with associated frontotemporal lobe encephalomalacia similar to prior exam. Soft tissues: Left parietal region 9.2 mm thick extra-axial hemorrhage likely reflecting a subdural hematoma without significant mass effect with overlying soft tissue edema of the scalp. CT/CT head wo con* [id number] IMPRESSION: 1. Left parietal region 9.2 mm thick extra-axial hemorrhage likely reflecting a subdural hematoma without significant mass effect with overlying soft tissue edema of the scalp. 2. Left frontotemporal craniotomy changes with associated frontotemporal lobe encephalomalacia similar to prior exam. 3. Large amount diffuse white matter disease likely reflecting chronic microvascular ischemic changes. 4. Left lateral ventricle ex vacuo dilation again seen with suspected aneurysm clips.
[2022-12-18 21:46] VITALS: PULSE 53; RESP 16; TEMP 36.4; O2SAT 92; BMI 31.3
[2022-12-18 22:03] VITALS: O2SAT 92
[2022-12-18 22:05] VITALS: BP 147/91; PULSE 58; O2SAT 93
[2022-12-18 23:09] VITALS: BP 143/65; PULSE 63; RESP 18; O2SAT 94
[2022-12-18 23:09] LABS: Basophils % 0.5 %; Eosinophils # 0.2 10^3/uL (0.0-0.8); Eosinophils % 3.1 %; Hematocrit 42.1 % (37.0-47.0); Hemoglobin 13.4 g/dL (11.5-15.3); Lymphocytes # 3.1 10^3/uL (0.8-4.8); Lymphocytes % 41.5 %; Mean Corpuscular HGB Conc 31.8 g/dL (30.0-36.0); Mean Corpuscular Hemoglobin 29.4 pg (28.0-34.0); Mean Corpuscular Volume 92.3 fl (81-99); Mean Platelet Volume 10.5 fL (7.4-10.4); Monocytes # 0.6 10^3/uL (0.2-0.9); Monocytes % 8.1 %; Neutrophils # 3.46 10^3/uL (1.8-7.7); Neutrophils % 46.7 %; Nucleated Red Blood Cells % 0 %; Platelet Count 185 10^3/cmm (130-400); Red Blood Count 4.56 10^6/uL (4.1-5.3); Red Cell Distribution Width 13.9 % (12.1-15.1); White Blood Count 7.4 10^3/uL (4.0-10.0)
[2022-12-18 23:23] LABS: Alanine Aminotransferase 8 U/L (0-33); Albumin Level 3.7 g/dL (3.5-5.2); Alkaline Phosphatase 115 U/L (35-105); Anion Gap 13.9 (5-19); Aspartate Amino Transferase 12 U/L (0-32); Blood Urea Nitrogen 11 mg/dL (8-23); Calcium 8.8 mg/dL (8.5-10.5); Carbon Dioxide 28 mmol/L (22-29); Chloride 105 mmol/L (98-107); Glomerular Filtration Rate 72.7 mL/min (90-130); Glucose 91 mg/dL (65-115); Osmolality Calculated 295 mOsm/kg (285-295); Potassium 3.9 mmol/L (3.5-5.1); Sodium 143 mmol/L (136-145); Total Bilirubin 0.3 mg/dL (0.15-1.2); Total Protein 6.7 g/dL (6.6-8.7)
[2022-12-18 23:40] VITALS: BP 160/69; PULSE 63; RESP 18; O2SAT 93
[2022-12-19 00:18] VITALS: BP 165/77; PULSE 70; RESP 20; O2SAT 94
--- NOTE | 2022-12-19 00:38 | PC.NURSE ---
Report given to [facility] senior account executive for transfer
== END 2022-12-19 00:48 | disposition short-term general hospital (02) ==
PROVIDERS: Emergency Provider Emergency Medicine; PCP Internal Medicine
DX: S06.5XAA Traumatic subdural hemorrhage with loss of consciousness status unknown, initial encounter (principal); S01.01XA Laceration without foreign body of scalp, initial encounter; J44.9 Chronic obstructive pulmonary disease, unspecified; Z86.73 Personal history of transient ischemic attack (TIA), and cerebral infarction without residual deficits; F01.50 Vascular dementia, unspecified severity, without behavioral disturbance, psychotic disturbance, mood disturbance, and anxiety; I10 Essential (primary) hypertension; E78.5 Hyperlipidemia, unspecified; W05.0XXA Fall from non-moving wheelchair, initial encounter
CPT/HCPCS: 12001; 36415; 70450; 72125; 80053; 85025; 85610; 99285

== ENCOUNTER 2023-03-12 15:04 | Inpatient (IN) | payer MEDICARE, MEDICAID, SELFPAY ==
[2023-03-12] VITALS (7 sets, daily range): BP systolic 126–164; BP diastolic 69–99; PULSE 76–97; RESP 16–21; TEMP 36.4–36.7; O2SAT 94–98
--- NOTE | 2023-03-12 15:08 | CTR_ITS ---
PROCEDURE INFORMATION: Exam: CTA Head With Contrast, Arteriography Exam date and time: 03/12/2023 3:14 PM Age: 63 years old Clinical indication: Weakness; Prior surgery; Surgery date: 6+ months; Surgery type: Aneursyms; Additional info: CVA TECHNIQUE: Imaging protocol: Computed tomographic angiography of the head with contrast. Exam focused on the arteries. 3D rendering (Not supervised by radiologist): MIP and/or 3D reconstructed images were created by the technologist. Radiation optimization: All CT scans at this facility use at least one of these dose optimization techniques: automated exposure control; mA and/or kV adjustment per patient size (includes targeted exams where dose is matched to clinical indication); or iterative reconstruction. Contrast material: OMNI 350; Contrast volume: 100 ml; Contrast route: INTRAVENOUS (IV); REPORTING DATA: Count of CT and Cardiac NM exams in prior 12 months: This patient has received 3 known CTs and 0 known cardiac nuclear medicine studies in the 12 months prior to the current study. COMPARISON: CT head thrombolytic [id number] 03/12/2023 3:12 PM RADIATION DOSE METRICS: Total DLP (mGy-cm): 1482 FINDINGS: ANTERIOR CIRCULATION: Right internal carotid artery: Intracranial segment is patent with no significant stenosis. No aneurysm. Right middle cerebral artery: No occlusion or significant stenosis. No aneurysm. Right anterior cerebral artery: No occlusion or significant stenosis. No aneurysm. Left internal carotid artery: Intracranial segment is patent with no significant stenosis. No aneurysm. Left middle cerebral artery: Diminished flow within the M2 and more distal segments of the left MCA distal to the aneurysm clip. The no major branch occlusion. Left anterior cerebral artery: No occlusion or significant stenosis. No aneurysm. POSTERIOR CIRCULATION: Right vertebral artery: No occlusion or significant stenosis. No aneurysm. Left vertebral artery: No occlusion or significant stenosis. No aneurysm. Basilar artery: No occlusion or significant stenosis. No aneurysm. Right posterior cerebral artery: Incidental origin right posterior cerebral artery arising from the right carotid siphon. Left posterior cerebral artery: No occlusion or significant stenosis. No aneurysm. Brain: The large area of encephalomalacia and acquired portencephaly left frontal-temporal lobe secondary to large old insult. Diffuse areas of decreased attenuation throughout the periventricular white matter secondary to chronic microvascular changes. Cerebral ventricles: No ventriculomegaly. Bones/joints: Left craniotomy defect stabilized by cortical plates. Soft tissues: Unremarkable. Other findings: 2 aneurysm clips projecting over the anterior communicating artery and distal M1 segment of the left MCA. PROCEDURE INFORMATION: Exam: CTA Neck With Contrast Exam date and time: 03/12/2023 3:14 PM Age: 63 years old Clinical indication: Weakness; Prior surgery; Surgery date: 6+ months; Surgery type: Aneursyms; Additional info: CVA TECHNIQUE: Imaging protocol: Computed tomographic angiography of the neck with contrast. 3D rendering (Not supervised by radiologist): MIP and/or 3D reconstructed images were created by the technologist. Radiation optimization: All CT scans at this facility use at least one of these dose optimization techniques: automated exposure control; mA and/or kV adjustment per patient size (includes targeted exams where dose is matched to clinical indication); or iterative reconstruction. Contrast material: OMNI 350; Contrast volume: 100 ml; Contrast route: INTRAVENOUS (IV); REPORTING DATA: Count of CT and Cardiac NM exams in prior 12 months: This patient has received 3 known CTs and 0 known cardiac nuclear medicine studies in the 12 months prior to the current study. COMPARISON: CT head thrombolytic [id number] 03/12/2023 3:12 PM RADIATION DOSE METRICS: Total DLP (mGy-cm): 1482 FINDINGS: Right common carotid artery: No stenosis. No dissection or occlusion. Right internal carotid artery: There is a swallowing artifact blurring the right carotid bulb and origin of the right ICA limiting assessment for stenosis. Remainder of the right ICA is patent to the skull base. Right external carotid artery: No occlusion or stenosis of the origin. Left common carotid artery: No stenosis. No dissection or occlusion. Left internal carotid artery: There is similar swallowing artifact blurring left carotid bulb and limiting assessment for stenosis at this location. Remainder of the left ICA is patent to the skull base. Left external carotid artery: No occlusion or stenosis of the origin. 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 Left vertebral artery: Left vertebral artery is dominant and patent. Pharynx: Scattered calcifications both tonsillar fossa likely representing tonsilliths. Soft tissues: Normal. No significant soft tissue swelling. Bones/joints: No acute fracture. Lungs: Chronic granulomatous calcifications within the right hilum and right upper lobe. CT/CT angio headneck* [id number] IMPRESSION: 1. Aneurysm clips anterior communicating artery and M1 segment left MCA. 2. Diminished flow within portions of the left MCA distal to the aneurysm clip. No major branch occlusion. 3. Large area of encephalomalacia left frontal-temporal lobe secondary to large old insult. IMPRESSION: 1. Technically limited assessment of the right and left carotid bulbs for carotid stenosis due to swallowing motion artifact. Recommend carotid Doppler exam for further evaluation. 2. 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 REFERENCES: NASCET CRITERIA. The degree of stenosis in the cervical segment of the internal carotid artery is based on NASCET criteria. Normal is no stenosis. Mild is less than 50% stenosis. Moderate is 50-69% stenosis. Severe is 70% to 99% stenosis. Total occlusion is no detectable patent lumen.
--- NOTE | 2023-03-12 15:08 | XR_ITS ---
WS: [id number] Exam: XR chest 1V portable [id number] Date/Time of Exam: 03/12/2023 3:12 PM Reason For Exam: cva Comparison 09/12/2022. The lungs are fully expanded. No acute infiltrates are noted. No pleural effusions. Normal cardiomedi astinal silhouette for technique. Regional bony structures are intact. The chest is somewhat rotated. XR/XR chest 1V portable [id number] IMPRESSION: 1. No acute cardiopulmonary finding.
--- NOTE | 2023-03-12 15:09 | CT_ITS ---
WS: [id number] CT HEAD NONCONTRAST HISTORY: Symptoms of acute stroke TECHNIQUE: Contiguous axial imaging performed through the brain in 2.5 mm imaging. Bone and soft tiss ue windows. Sagittal and coronal reformats reviewed. All CT scans at [facility] use at least one of these dose optimization techniques: automated exposure control; mA and/or kV adjustment per pa tient size (includes targeted exams where dose is matched to clinical indication); or iterative recon struction. DLP: 990.54 mGy-cm. COMPARISON: 12/18/2022 Diffuse white matter disease is similar to the prior study. There is confluent low attenuation within the white matter. Large area of encephalomalacia involving the LEFT frontotemporal lobe from prior i nfarct or surgery. There is a large craniotomy involving the LEFT frontal bone. Additional lacunar in farcts in the RIGHT basal ganglia. All of these findings appear stable. No inferior displacement of cerebellar tonsils. Ventricles: Extra-axial dilatation of the LEFT lateral ventricle due to the prior infarct. Paranasal sinuses: As visualized are clear. Mastoid air cells: Well pneumatized. Calvarium and scalp: Large LEFT frontal craniotomy. There are additional surgical clips in the region of the anterior communicating artery and the LEFT MCA. CT/CT head thrombolytic [id number] IMPRESSION: 1. No acute intracranial hemorrhage. 2. Extensive small vessel ischemic disease and large remote infarct with encep halomalacia involving the LEFT frontotemporal lobes. 3. Prior aneurysm clipping near the anterior communicating artery and the LEFT MCA. 4. Large LEFT frontal craniotomy.
--- NOTE | 2023-03-12 15:10 | ED_ITS ---
HPI - General Adult General: Chief complaint: Neuro Symptoms/Deficit Stated complaint: FALL AT 5 AM Time Seen by Provider: 03/12/23 15:05 Source: EMS Mode of arrival: EMS Limitations: altered mental status History of Present Illness: 63-year-old female that is [facility] she has a history dementia per EMS she had had a fall this morning at 5 AM was seen at another hospital had a head CT that was normal I do have the report they state that when she returned back to the nurse, at 7 AM she had had right-sided facial droop along with right-sided weakness. Last known normal was around 7 AM she does have right- sided facial droop severe dysarthria she is not able to move her right side is hard to get much history from her during her dementia and she has some confusion she denies any headache currently. Review of Systems General: Reports: ROS unobtainable due to mental status PFS ED PFSH: Medical History COPD (chronic obstructive pulmonary disease) CVA (cerebral vascular accident) Dementia, vascular GERD (gastroesophageal reflux disease) HTN (hypertension) Hyperlipidemia Incontinence in female Seizure disorder Vitamin D deficiency Surgical History H/O brain surgery H/O excision of epidermal inclusion cyst History of 2 sections Family History Brother Hodgkins disease Father Stroke Physical Exam Const: COMMON NORMALS: apparent distress and negative for patient oriented x3 HENMT: COMMON NORMALS: normocephalic and atraumatic HEAD & SCALP: normocephalic and atraumatic MOUTH: Normal oral and palatal mucosa present Eye: COMMON NORMALS: Equal, round and reactive pupils present and EOMs intact bilaterally PUPIL: Yes Equal, round and reactive pupils present Neck/C-Spine: COMMON NORMALS: supple Chest: COMMONS NORMALS: normal inspection of the chest and normal palpation of entire chest wall Resp: COMMON NORMALS: normal respiratory effort and clear to auscultation bilaterally AUSCULTATION: clear to auscultation bilaterally Cardio: COMMON NORMALS: regular rate and regular rhythm RATE: regular rate RHYTHM: regular rhythm GI: COMMON NORMALS: Normal to inspection, nondistended, normoactive bowel sounds present, Soft to palpation and non-tender PALPATION: Yes Soft to palpation Extremity: COMMON NORMALS: normal to inspection Neuro: COMMON NORMALS: negative for patient oriented x3 OTHER: slurred speech and right sided facial droop, right sided upper and extremity weakness Psych: COMMON NORMALS: negative for mental status grossly normal Skin: COMMON NORMALS: no rashes or lesions noted GENERAL SKIN EXAM: no rashes or lesions noted Course Vital Signs: Vital signs: Vital Signs Pulse Rate 77 03/12/23 16:31 Respiratory Rate 16 03/12/23 16:31 Blood Pressure 126/99 03/12/23 16:31 Pulse Oximetry 96 03/12/23 16:31 Oxygen Delivery Me thod Nasal Cannula 03/12/23 15:29 Oxygen Flow Rate 3 03/12/23 15:29 MDM - General Adult Medical Decision Making Patient presents with right-sided weakness along with slurred speech and possible CVA she had a previous very large stroke in the past she is not a treatment candidate as her last known normal was 7 AM she had also had a fall this morning. I spoke to the hospitalist will admit at this time patient is been stable while here. Medical Records I reviewed the patient's medical records. Lab Data I reviewed the patient's lab results. 03/12/23 15:40 03/12/23 15:40 Radiology Impressions Chest X-Ray 03/12/23 15:08 IMPRESSION: 1. No acute cardiopulmonary finding. Head/Neck CTA 03/12/23 15:08 IMPRESSION: 1. Aneurysm clips anterior communicating artery and M1 segment left MCA. 2. Diminished flow within portions of the left MCA distal to the aneurysm clip. No major branch occlusion. 3. Large area of encephalomalacia left frontal-temporal lobe secondary to large old insult. IMPRESSION: 1. Technically limited assessment of the right and left carotid bulbs for carotid stenosis due to swallowing motion artifact. Recommend carotid Doppler exam for further evaluation. 2. 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 REFERENCES: NASCET CRITERIA. The degree of stenosis in the cervical segment of the internal carotid artery is based on NASCET criteria. Normal is no stenosis. Mild is less than 50% stenosis. Moderate is 50-69% stenosis. Severe is 70% to 99% stenosis. Total occlusion is no detectable patent lumen. Head CT 03/12/23 15:09 IMPRESSION: 1. No acute intracranial hemorrhage. 2. Extensive small vessel ischemic disease and large remote infarct with encephalomalacia involving the LEFT frontotemporal lobes. 3. Prior aneurysm clipping near the anterior communicating artery and the LEFT MCA. 4. Large LEFT frontal craniotomy. Laboratory Results WBC 7.0 10^3/uL (4.0-10.0) 03/12/23 15:40 RBC 4.70 10^6/uL (4.1-5.3) 03/12/23 15:40 Hgb 13.6 g/dL (11.5-15.3) 03/12/23 15:40 Hct 42.7 % (37.0-47.0) 03/12/23 15:40 MCV 90.9 fl (81-99) 03/12/23 15:40 MCH 28.9 pg (28.0-34.0) 03/12/23 15:40 MCHC 31.9 g/dL (30.0-36.0) 03/12/23 15:40 RDW 13.6 % (12.1-15.1) 03/12/23 15:40 Plt Count 215 10^3/cmm (130-400) 03/12/23 15:40 MPV 10.2 fL (7.4-10.4) 03/12/23 15:40 Neut % (Auto) 61.4 % 03/12/23 15:40 Lymph % (Auto) 27.3 % 03/12/23 15:40 [place] % (Auto) 8.9 % 03/12/23 15:40 Eos % (Auto) 1.7 % 03/12/23 15:40 Baso % (Auto) 0.4 % 03/12/23 15:40 Neut # (Auto) 4.27 10^3/uL (1.8-7.7) 03/12/23 15:40 Lymph # (Auto) 1.9 10^3/uL (0.8-4.8) 03/12/23 15:40 [place] # (Auto) 0.6 10^3/uL (0.2-0.9) 03/12/23 15:40 Eos # (Auto) 0.1 10^3/uL (0.0-0.8) 03/12/23 15:40 Baso # (Auto) 0.0 10^3/uL (0.0-0.1) 03/12/23 15:40 Nucleated RBC % (auto) 0 % 03/12/23 15:40 Nucleated RBCs # 0.0 /100WBC 03/12/23 15:40 PT 13.80 SECONDS (12.1-14.9) 03/12/23 15:40 INR 1.03 (0.8-1.2) 03/12/23 15:40 APTT 29.1 SECONDS (23.9-36.7) 03/12/23 15:40 Sodium 137 mmol/L (136-145) 03/12/23 15:40 Potassium 4.0 mmol/L (3.5-5.1) 03/12/23 15:40 Chloride 100 mmol/L (98-107) 03/12/23 15:40 Carbon Dioxide 24 mmol/L (22-29) 03/12/23 15:40 Anion Gap 17.0 (5-19) 03/12/23 15:40 BUN 11 mg/dL (8-23) 03/12/23 15:40 Creatinine 0.6 mg/dL (0.5-0.9) 03/12/23 15:40 GFR Calculation 101.0 mL/min (90-130) 03/12/23 15:40 Glucose 94 mg/dL (65-115) 03/12/23 15:40 POC Glucose 98 mg/dL (70-110) 03/12/23 15:33 Calculated Osmolality 283 mOsm/kg (285-295) L 03/12/23 15:40 Calcium 8.6 mg/dL (8.5-10.5) 03/12/23 15:40 Total Bilirubin 0.4 mg/dL (0.15-1.2) 03/12/23 15:40 AST 10 U/L (0-32) 03/12/23 15:40 ALT 8 U/L (0-33) 03/12/23 15:40 Alkaline Phosphatase 133 U/L (35-105) H 03/12/23 15:40 Total Protein 6.9 g/dL (6.6-8.7) 03/12/23 15:40 Albumin 3.7 g/dL (3.5-5.2) 03/12/23 15:40 Globulin 3.2 g/dL (1.3-4.6) 03/12/23 15:40 Urine Color Light yellow (Yellow) 03/12/23 15:53 Urine Appearance Clear (CLEAR) 03/12/23 15:53 Urine pH 8 (5-7) H 03/12/23 15:53 Ur Specific [place] 1.010 (1.005-1.030) 03/12/23 15:53 Urine Protein Neg (Negative) 03/12/23 15:53 Urine Glucose (UA) Norm (Normal) 03/12/23 15:53 Urine Ketones 1+ (Negative) H 03/12/23 15:53 Urine Blood 3+ (Negative) H 03/12/23 15:53 Urine Nitrate Negative (Negative) 03/12/23 15:53 Urine Bilirubin Neg (Negative) 03/12/23 15:53 Prot Sulfosalicylic Acd Negative (Negative) 03/12/23 15:53 Urine Urobilinogen Norm mg/dL (Negative) 03/12/23 15:53 Ur Leukocyte Esterase Negative (Negative) 03/12/23 15:53 Urine RBC 15-25 /hpf (0-2) H 03/12/23 15:53 Urine WBC Rare /hpf (0-5) 03/12/23 15:53 Ur Squamous Epith Cells 5-10 /hpf (0-5) H 03/12/23 15:53 Amorphous Sediment Not Reportable 03/12/23 15:53 Urine Bacteria Trace /hpf (NONE) 03/12/23 15:53 Urine Opiates Screen Negative ng/mL (Negative) 03/12/23 15:53 Ur Barbiturates Screen Negative ng/mL (Negative) 03/12/23 15:53 Ur Phencyclidine Scrn Negative ng/mL (Negative) 03/12/23 15:53 Ur Amphetamines Screen Negative ng/mL (Negative) 03/12/23 15:53 U Benzodiazepines Scrn Negative ng/mL (Negative) 03/12/23 15:53 Urine Cocaine Screen Negative ng/mL (Negative) 03/12/23 15:53 U Marijuana (THC) Screen Negative ng/mL (Negative) 03/12/23 15:53 EKG Data EKG 1: I personally reviewed and interpreted this EKG as follows: EKG interpretation date: 03/12/23 EKG interpretation time: 15:31 Computer generated interpretation: Chest X-Ray 03/12/23 15:08 IMPRESSION: 1. No acute cardiopulmonary finding. Head/Neck CTA 03/12/23 15:08 IMPRESSION: 1. Aneurysm clips anterior communicating artery and M1 segment left MCA. 2. Diminished flow within portions of the left MCA distal to the aneurysm clip. No major branch occlusion. 3. Large area of encephalomalacia left frontal-temporal lobe secondary to large old insult. IMPRESSION: 1. Technically limited assessment of the right and left carotid bulbs for carotid stenosis due to swallowing motion artifact. Recommend carotid Doppler exam for further evaluation. 2. 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 REFERENCES: NASCET CRITERIA. The degree of stenosis in the cervical segment of the internal carotid artery is based on NASCET criteria. Normal is no stenosis. Mild is less than 50% stenosis. Moderate is 50-69% stenosis. Severe is 70% to 99% stenosis. Total occlusion is no detectable patent lumen. Head CT 03/12/23 15:09 IMPRESSION: 1. No acute intracranial hemorrhage. 2. Extensive small vessel ischemic disease and large remote infarct with encep halomalacia involving the LEFT frontotemporal lobes. 3. Prior aneurysm clipping near the anterior communicating artery and the LEFT MCA. 4. Large LEFT frontal craniotomy. nsr hr [address] or t wave abnormalities qrs 117 qtc 419 Discharge Plan Discharge Patient Disposition: Admitted As Inpatient Clinical Impression: Cerebrovascular accident Condition: Stable Coding Level of Care Code ED [employer] Supervisor for Donna Brock NIH stroke score NIHSS Level Of Consciousness - 1a: 1 Level Of Consciousness Questions - 1b: Both Correct Level Of Consciousness Commands - 1c: Both Correct Best Gaze - 2: Normal Visual [place] - 3: No Visual Loss Facial Palsy - 4: Partial Paralysis Motor Arm Right - 5: No Movement Motor Arm Left - 5: No Drift Motor Leg Right - 6: No Movement Motor Leg Left - 6: No Drift Limb Ataxia - 7: Absent Sensory - 8: Mild To Moderate Loss Best Language - 9: Mild/Moderate Aphasia Dysarthia - 10: Mild/Moderate Dysarthia Extinction And Inattention - 11: 0 Score Total Score: 14
[2023-03-12] MEDS: iohexol 350 mg/mL 500 mL Btl (per mL) IV (15:19)
--- NOTE | 2023-03-12 15:31 | ECG_ITS ---
[facility] Test Date: 2023-03-12 Pat Name: Sherri Mcintyre Department: Room: Gender: Female [employer] Work[employer]: : 1960 Requested By: Jaron Allen Order Number: [id number] Mis MD: Seth Sebastian M.D. Measurements Intervals [place] Rate: 94 P: 46 NH: 188 QRS: -63 QRSD: 117 T: 26 QT: 367 QTc: 461 Interpretive Statements SINUS RHYTHM LOW QRS VOLTAGE IN PRECORDIAL LEADS [QRS DEFLECTION < 1.0 mV IN CHEST LEADS] INCOMPLETE RIGHT BUNDLE BRANCH BLOCK [90+ ms QRS DURATION, TERMINAL R IN V1/V2, 40+ ms S IN I/aVL/V4/V5/V6] INFERIOR MYOCARDIAL INFARCTION , PROBABLY OLD [40+ ms Q WAVE AND/OR ST/T ABNORMALITY IN II/aVF] ANTEROLATERAL MYOCARDIAL INFARCTION , OF INDETERMINATE AGE [40+ ms Q WAVE IN I/aVL/V3-V6] Compared to ECG 09/12/2022 15:19:11 Low QRS voltage now present Incomplete right bundle-branch block now present Left-axis deviation no longer present Right bundle-branch block no longer present Myocardial infarct finding still present Electronically Signed On 03-12-2023 17:22:54 CDT by Seth Sebastian M.D. [email or web address]
[2023-03-12 15:36] LABS: Glucose Point of Care 98 mg/dL (70-110)
[2023-03-12 15:49] LABS: Basophils % 0.4 %; Eosinophils # 0.1 10^3/uL (0.0-0.8); Eosinophils % 1.7 %; Hematocrit 42.7 % (37.0-47.0); Hemoglobin 13.6 g/dL (11.5-15.3); Lymphocytes # 1.9 10^3/uL (0.8-4.8); Lymphocytes % 27.3 %; Mean Corpuscular HGB Conc 31.9 g/dL (30.0-36.0); Mean Corpuscular Hemoglobin 28.9 pg (28.0-34.0); Mean Corpuscular Volume 90.9 fl (81-99); Mean Platelet Volume 10.2 fL (7.4-10.4); Monocytes # 0.6 10^3/uL (0.2-0.9); Monocytes % 8.9 %; Neutrophils # 4.27 10^3/uL (1.8-7.7); Neutrophils % 61.4 %; Nucleated Red Blood Cells % 0 %; Platelet Count 215 10^3/cmm (130-400); Red Cell Distribution Width 13.6 % (12.1-15.1)
[2023-03-12 16:06] LABS: INR 1.03 (0.8-1.2)
[2023-03-12 16:08] LABS: Partial Thromboplastin Time 29.1 SECONDS (23.9-36.7)
[2023-03-12 16:09] LABS: Glucose Urine UA Norm (Normal); Ketones Urine 1+ (Negative); Protein Urine Neg (Negative); Urine Appearance Clear (CLEAR); Urine Color Light yellow (Yellow); pH Urine 8 (5-7)
[2023-03-12 16:10] LABS: Add Urine Microscopic? YES; Amphetamines Screen Urine Negative (Negative); Barbiturates Screen Urine Negative (Negative); Benzodiazepines Screen Urine Negative (Negative); Bilirubin Urine Neg (Negative); Blood Urine 3+ (Negative); Cocaine Screen Urine Negative (Negative); Leukocyte Esterase Urine Negative (Negative); Nitrate Urine Negative (Negative); Opiate Screen Urine Negative (Negative); PCP Screen Urine Negative (Negative); Sulfosalicylic Acid Urine Negative (Negative); THC Screen Urine Negative (Negative); Urobilinogen Urine Norm (Negative)
[2023-03-12 16:11] LABS: Add Urine Culture? Yes; Bacteria Urine TRACE /hpf; RBC Urine 15-25 /hpf (0-2); WBC Urine RARE /hpf (0-5)
--- NOTE | 2023-03-12 16:12 | PC.PHAR ---
pt is from [facility] [phone]-per honey from [facility] states the pt had all am meds -states the pt finished the macrobid bid for 7 days started on 02/22/23-
[2023-03-12 16:13] LABS: Alanine Aminotransferase 8 U/L (0-33); Albumin Level 3.7 g/dL (3.5-5.2); Alkaline Phosphatase 133 U/L (35-105); Aspartate Amino Transferase 10 U/L (0-32); Blood Urea Nitrogen 11 mg/dL (8-23); Calcium 8.6 mg/dL (8.5-10.5); Carbon Dioxide 24 mmol/L (22-29); Chloride 100 mmol/L (98-107); Globulin 3.2 g/dL (1.3-4.6); Glucose 94 mg/dL (65-115); Osmolality Calculated 283 mOsm/kg (285-295); Sodium 137 mmol/L (136-145); Total Bilirubin 0.4 mg/dL (0.15-1.2); Total Protein 6.9 g/dL (6.6-8.7)
[2023-03-12] MEDS: aspirin 300 mg Supp PR (17:44)
--- NOTE | 2023-03-12 18:01 | P.HP_ITS ---
Providers/Chief Complaint Admitting Physician: Walker Martin MD Primary Care Provider: Jr Cardenas MD Chief Complaint: FALL AT 5 AM History of Present Illness Patient with the ER physician. Sherri Mcintyre is a 63 year old female who is a [place] [facility] resident with past medical history of vascular dementia, stroke, cerebral aneurysm, COPD, hypertension hyperlipidemia, seizure disorder had a fall in the morning around 5 AM and was seen at the local hospital where head CT was deemed to be normal though report is not available. Patient was discharged back to the nursing [facility]. At 7 AM patient was found to have a right-sided facial droop along with right-sided weakness and was brought to the ER. Patient was seen in the ER at 1505. Last known normal at 7 AM. In the ER she was found to have right-sided facial droop with severe dysarthria and weakness in the right upper and lower limb. Patient is not able to participate in history taking given her dementia and some confusion. Blood work appreciated. Review of Systems General: Reports: ROS unobtainable due to mental status Medications/Allergies Home Medications Medication Instructions Recorded Confirmed Last Taken Type lamotrigine 150 mg tablet 150 mg PO BID@,12/30/19 03/12/23 03/12/23 History pantoprazole 20 mg tablet,delayed 20 mg PO BID@12/30/19 03/12/23 03/12/23 History release quetiapine 100 mg tablet (Seroquel) 100 mg PO BID@12/30/19 03/12/23 03/12/23 History simvastatin 20 mg tablet 20 mg PO DAILY@12/30/19 03/12/23 03/11/23 History tamsulosin 0.4 mg capsule 0.4 mg PO DAILY@12/30/19 03/12/23 03/11/23 History metoprolol succinate 50 mg 50 mg PO DAILY@12/31/19 03/12/23 03/12/23 History tablet,extended release 24 hr (Toprol XL) Modern Mushroom Multivitamin 1 tab PO DAILY 03/12/23 03/12/23 Unknown History acetaminophen 325 mg tablet 650 mg PO Q6H PRN Pain 03/12/23 03/12/23 Unknown History (Tylenol) albuterol sulfate 90 mcg/actuation 2 puff inhalation Q6H PRN 03/12/23 03/12/23 Unknown History aerosol inhaler shortness of breath or wheezing amlodipine 10 mg tablet 10 mg PO DAILY@08 03/12/23 03/12/23 03/12/23 History budesonide 0.5 mg/2 mL suspension 0.5 mg inhalation BID@08,18 03/12/23 03/12/23 03/12/23 History for nebulization formoterol fumarate 20 mcg/2 mL 2 ml inhalation BID@08,18 03/12/23 03/12/23 03/12/23 History solution for nebulization (Perforomist) guaifenesin 100 mg/5 mL oral 200 mg PO Q6H PRN Congestion 03/12/23 03/12/23 Unknown History liquid (Irma-Tussin) loratadine 10 mg tablet (Claritin) 10 mg PO DAILY@08 03/12/23 03/12/23 03/12/23 History potassium chloride 20 mEq 20 meq PO DAILY@08 03/12/23 03/12/23 03/12/23 History tablet,extended release(part/cryst) sertraline 25 mg tablet 25 mg PO DAILY@08 03/12/23 03/12/23 03/12/23 History Allergies Allergy/AdvReac Type Severity Reaction Status Date / Time Penicillins Allergy ALGY-Rash Verified 03/12/23 16:12 PFSH Acute PFSH: Medical History (Updated 03/12/23 @ 18:08 by Walker Martin MD) Brain aneurysm COPD (chronic obstructive pulmonary disease) CVA (cerebral vascular accident) Dementia, vascular GERD (gastroesophageal reflux disease) HTN (hypertension) Hyperlipidemia Incontinence in female Seizure disorder Vitamin D deficiency Surgical History H/O brain surgery H/O excision of epidermal inclusion cyst History of 2 sections Family History Brother Hodgkins disease Father Stroke Vitals/I&O/Wt Last Vital Signs Pulse 92 03/12/23 17:59 Resp 18 03/12/23 17:59 BP 126/99 03/12/23 16:31 Pulse Ox 94 03/12/23 17:59 O2 Del Method Nasal Cannula 03/12/23 17:59 O2 Flow Rate 23 26/23 17:59 Physical Exam Narrative: General: No acute distress, sleepy but wakes up to verbal stimulus but not able to have conversation, not following commands HEENT: PERRLA, pupils bilaterally equal and reactive Chest: Normal vesicular breath sounds, no added sounds, equal good air entry bilaterally CVS: S1-S2 regular, no murmurs, no tachycardia, no gallops, no rubs Abdomen: Soft, nontender, no organomegaly, bowel sounds present Neuro: Left-sided facial droop, power right upper limb and lower limb 2/5, sl eeping well on waking up slurred speech, seems confused but not sure if it is different than baseline Data 03/13/23 03:28 03/13/23 03:28 Other Labs: Radiology Impressions Chest X-Ray 03/12/23 15:08 IMPRESSION: 1. No acute cardiopulmonary finding. Head/Neck CTA 03/12/23 15:08 IMPRESSION: 1. Aneurysm clips anterior communicating artery and M1 segment left MCA. 2. Diminished flow within portions of the left MCA distal to the aneurysm clip. No major branch occlusion. 3. Large area of encephalomalacia left frontal-temporal lobe secondary to large old insult. IMPRESSION: 1. Technically limited assessment of the right and left carotid bulbs for carotid stenosis due to swallowing motion artifact. Recommend carotid Doppler exam for further evaluation. 2. 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 REFERENCES: NASCET CRITERIA. The degree of stenosis in the cervical segment of the internal carotid artery is based on NASCET criteria. Normal is no stenosis. Mild is less than 50% stenosis. Moderate is 50-69% stenosis. Severe is 70% to 99% stenosis. Total occlusion is no detectable patent lumen. Head CT 03/12/23 15:09 IMPRESSION: 1. No acute intracranial hemorrhage. 2. Extensive small vessel ischemic disease and large remote infarct with encephalomalacia involving the LEFT frontotemporal lobes. 3. Prior aneurysm clipping near the anterior communicating artery and the LEFT MCA. 4. Large LEFT frontal craniotomy. Laboratory Results WBC 7.0 10^3/uL (4.0-10.0) 03/12/23 15:40 RBC 4.70 10^6/uL (4.1-5.3) 03/12/23 15:40 Hgb 13.6 g/dL (11.5-15.3) 03/12/23 15:40 Hct 42.7 % (37.0-47.0) 03/12/23 15:40 MCV 90.9 fl (81-99) 03/12/23 15:40 MCH 28.9 pg (28.0-34.0) 03/12/23 15:40 MCHC 31.9 g/dL (30.0-36.0) 03/12/23 15:40 RDW 13.6 % (12.1-15.1) 03/12/23 15:40 Plt Count 215 10^3/cmm (130-400) 03/12/23 15:40 MPV 10.2 fL (7.4-10.4) 03/12/23 15:40 Neut % (Auto) 61.4 % 03/12/23 15:40 Lymph % (Auto) 27.3 % 03/12/23 15:40 [place] % (Auto) 8.9 % 03/12/23 15:40 Eos % (Auto) 1.7 % 03/12/23 15:40 Baso % (Auto) 0.4 % 03/12/23 15:40 Neut # (Auto) 4.27 10^3/uL (1.8-7.7) 03/12/23 15:40 Lymph # (Auto) 1.9 10^3/uL (0.8-4.8) 03/12/23 15:40 [place] # (Auto) 0.6 10^3/uL (0.2-0.9) 03/12/23 15:40 Eos # (Auto) 0.1 10^3/uL (0.0-0.8) 03/12/23 15:40 Baso # (Auto) 0.0 10^3/uL (0.0-0.1) 03/12/23 15:40 Nucleated RBC % (auto) 0 % 03/12/23 15:40 Nucleated RBCs # 0.0 /100WBC 03/12/23 15:40 PT 13.80 SECONDS (12.1-14.9) 03/12/23 15:40 INR 1.03 (0.8-1.2) 03/12/23 15:40 APTT 29.1 SECONDS (23.9-36.7) 03/12/23 15:40 Sodium 137 mmol/L (136-145) 03/12/23 15:40 Potassium 4.0 mmol/L (3.5-5.1) 03/12/23 15:40 Chloride 100 mmol/L (98-107) 03/12/23 15:40 Carbon Dioxide 24 mmol/L (22-29) 03/12/23 15:40 Anion Gap 17.0 (5-19) 03/12/23 15:40 BUN 11 mg/dL (8-23) 03/12/23 15:40 Creatinine 0.6 mg/dL (0.5-0.9) 03/12/23 15:40 GFR Calculation 101.0 mL/min (90-130) 03/12/23 15:40 Glucose 94 mg/dL (65-115) 03/12/23 15:40 POC Glucose 98 mg/dL (70-110) 03/12/23 15:33 Calculated Osmolality 283 mOsm/kg (285-295) L 03/12/23 15:40 Calcium 8.6 mg/dL (8.5-10.5) 03/12/23 15:40 Total Bilirubin 0.4 mg/dL (0.15-1.2) 03/12/23 15:40 AST 10 U/L (0-32) 03/12/23 15:40 ALT 8 U/L (0-33) 03/12/23 15:40 Alkaline Phosphatase 133 U/L (35-105) H 03/12/23 15:40 Total Protein 6.9 g/dL (6.6-8.7) 03/12/23 15:40 Albumin 3.7 g/dL (3.5-5.2) 03/12/23 15:40 Globulin 3.2 g/dL (1.3-4.6) 03/12/23 15:40 Urine Color Light yellow (Yellow) 03/12/23 15:53 Urine Appearance Clear (CLEAR) 03/12/23 15:53 Urine pH 8 (5-7) H 03/12/23 15:53 Ur Specific [place] 1.010 (1.005-1.030) 03/12/23 15:53 Urine Protein Neg (Negative) 03/12/23 15:53 Urine Glucose (UA) Norm (Normal) 03/12/23 15:53 Urine Ketones 1+ (Negative) H 03/12/23 15:53 Urine Blood 3+ (Negative) H 03/12/23 15:53 Urine Nitrate Negative (Negative) 03/12/23 15:53 Urine Bilirubin Neg (Negative) 03/12/23 15:53 Prot Sulfosalicylic Acd Negative (Negative) 03/12/23 15:53 Urine Urobilinogen Norm mg/dL (Negative) 03/12/23 15:53 Ur Leukocyte Esterase Negative (Negative) 03/12/23 15:53 Urine RBC 15-25 /hpf (0-2) H 03/12/23 15:53 Urine WBC Rare /hpf (0-5) 03/12/23 15:53 Ur Squamous Epith Cells 5-10 /hpf (0-5) H 03/12/23 15:53 Amorphous Sediment Not Reportable 03/12/23 15:53 Urine Bacteria Trace /hpf (NONE) 03/12/23 15:53 Urine Opiates Screen Negative ng/mL (Negative) 03/12/23 15:53 Ur Barbiturates Screen Negative ng/mL (Negative) 03/12/23 15:53 Ur Phencyclidine Scrn Negative ng/mL (Negative) 03/12/23 15:53 Ur Amphetamines Screen Negative ng/mL (Negative) 03/12/23 15:53 U Benzodiazepines Scrn Negative ng/mL (Negative) 03/12/23 15:53 Urine Cocaine Screen Negative ng/mL (Negative) 03/12/23 15:53 U Marijuana (THC) Screen Negative ng/mL (Negative) 03/12/23 15:53 A&P Assessment and plan (1) Cerebrovascular accident: Appreciate CT head, CTA head and neck done in the ER. Not deemed a candidate for tPA as per neurology. Received full dose aspirin in the ER. Check A1c, lipid panel, PT/OT/speech evaluation. N.p.o. for now. Advance diet as per speech evaluation. Check echocardiogram. Hold off on antihypertensives for permissible hypertension. Aspirin 81 mg daily, atorvastatin 40 mg daily. (2) Dementia, vascular: Continue with home medications of Seroquel and sertraline. Patient is a long- term [place] [facility] resident. Qualifiers: Dementia behavioral disturbance: with behavioral disturbance Qualified Code(s): F01.51 - Vascular dementia with behavioral disturbance (3) Seizure disorder: Continue with home dose of lamotrigine. Seizure precautions. (4) COPD (chronic obstructive pulmonary disease): DuoNebs every 6 hour, budesonide twice daily. Maintain saturation over 88%. (5) Anxiety: (6) Major depression, chronic: (7) Brain aneurysm: Attestations Medical Necessity Statement*: Admission for more than 2 midnights for further evaluation and management of stroke in a patient with baseline history of stroke, seizure disorder and severe dementia Diagnoses Cerebrovascular accident I63.9 Dementia, vascular F01.51 Dementia behavioral disturbance: with behavioral disturbance Seizure disorder G40.909 COPD (chronic obstructive pulmonary disease) J44.9 Anxiety F41.9 Major depression, chronic F32.9 Brain aneurysm I67.1
[2023-03-12 18:52] LABS: Thyroid Stimulating Hormone 0.79 uIU/mL (0.27-4.20)
[2023-03-12] MEDS: heparin 5,000 unit/mL INJ 1 mL 5000 UNIT SUBCUT (18:58)
[2023-03-12 19:00] LABS: Iron 58 ug/dL (37-145); Percent Saturation 25.4 % (20-50); Total Iron Binding Capacity 228 mcg/dl; Unsaturated Iron Binding 170 ug/dL (112-347); Vitamin B12 534 pg/mL (232-1245)
--- NOTE | 2023-03-12 21:02 | PC.NURSE ---
Unable to give po meds at this time do to aspiration risk.
--- NOTE | 2023-03-12 23:47 | PC.NURSE ---
patient wouldnt let me take vitals when asked for the last two sets
[2023-03-13] VITALS (8 sets, daily range): BP systolic 114–154; BP diastolic 70–86; PULSE 80–104; RESP 17–22; TEMP 36–37.2; O2SAT 91–95
[2023-03-13 03:49] LABS: Basophils % 0.3 %; Eosinophils # 0.1 10^3/uL (0.0-0.8); Eosinophils % 1.9 %; Hematocrit 42.3 % (37.0-47.0); Hemoglobin 13.9 g/dL (11.5-15.3); Lymphocytes # 1.6 10^3/uL (0.8-4.8); Mean Corpuscular HGB Conc 32.9 g/dL (30.0-36.0); Mean Corpuscular Hemoglobin 29.6 pg (28.0-34.0); Mean Corpuscular Volume 90.2 fl (81-99); Mean Platelet Volume 10.6 fL (7.4-10.4); Monocytes # 0.7 10^3/uL (0.2-0.9); Monocytes % 9.3 %; Neutrophils # 4.91 10^3/uL (1.8-7.7); Neutrophils % 66.4 %; Nucleated Red Blood Cells % 0 %; Platelet Count 239 10^3/cmm (130-400); Red Blood Count 4.69 10^6/uL (4.1-5.3); Red Cell Distribution Width 13.6 % (12.1-15.1); White Blood Count 7.4 10^3/uL (4.0-10.0)
--- NOTE | 2023-03-13 03:51 | PC.NURSE ---
0300 This nurse was in the hallway and heard patient call out for help. Upon entering the room patient was on the floor laying on her right side. Patient states both her legs have mild pain. Right knee has some bruising. Patient states she did not hit her head. No visible head injuries observed. This nurse pushed the staff assist button and received assistance from charge nurse Tita ESCOBAR, Avani Durán and Charlie LOTT, Vital signs stable. Dr. Quintanilla notified, no new orders at this time. supervisor wash house notified.
[2023-03-13 04:08] LABS: Alanine Aminotransferase 9 U/L (0-33); Albumin Level 3.8 g/dL (3.5-5.2); Alkaline Phosphatase 142 U/L (35-105); Anion Gap 15.5 (5-19); Aspartate Amino Transferase 12 U/L (0-32); Blood Urea Nitrogen 9 mg/dL (8-23); Carbon Dioxide 26 mmol/L (22-29); Chloride 101 mmol/L (98-107); Chol HDL Ratio 3.81 mg/dL (0.0-4.40); Cholesterol 179 mg/dL (0-200); Estmated Average Glucose 105; Globulin 3.3 g/dL (1.3-4.6); Glomerular Filtration Rate 124.6 mL/min (90-130); Glucose 93 mg/dL (65-115); HDL Cholesterol 47 mg/dL (60-100); Hemoglobin A1C 5.3 % (4.0-6.0); LDL Cholesterol Calculated 105 mg/dL (50-129); LDL HDL Ratio 2.23 RATIO (0.00-3.22); Osmolality Calculated 286 mOsm/kg (285-295); Potassium 3.5 mmol/L (3.5-5.1); Sodium 139 mmol/L (136-145); Total Bilirubin 0.4 mg/dL (0.15-1.2); Total Protein 7.1 g/dL (6.6-8.7); Triglycerides 137 mg/dL (0-150)
[2023-03-13] MEDS: heparin 5,000 unit/mL INJ 1 mL 5000 UNIT SUBCUT ×2 (05:22→17:53)
--- NOTE | 2023-03-13 10:02 | PC.CHAP ---
Pastoral Care Encounter/Spiritual Assessment Type of Contact [] Declined lending advisor visit [] Patient/Family/Request visit [] Outpatient visit [] Follow-up visit [] Physician referral [] Code/Alert [x] Routine visit [] Staff referral [] Actively dying [] Patient sleeping [] Family support [] [] Out of room [] Palliative care [] [] Receiving care in room [] Pre-surgical visit [] Trauma [] Long length of stay [] ICU visit [] Other: Relational/Emotional Strength [x] Patient feels connected with others/family/visitors/staff [] Distress [] Loneliness/isolation [] Abandonment Spirituality of Patient [x] Person of Oma [] Attends Mu-Ism of their Oma [x] Believes in Prayer [] Reads Bible or Orthodoxy materials [] There are Spiritual issues to be addressed Residential Builder Interventions [x] Prayer [x] Active listening [] Non-anxious presence [x] Spiritual/emotional support [] Crisis/trauma care [] Spiritual counseling [] Bereavement support [] Provided bereavement packet [] Provided Bible/devotional materials [] Provided toy/stuffed animal, coloring book to patient or family member [] Provided Communion [] Anointing/[place] [] Salvation [x] Completed spiritual assessment [] Other: Impact on Illness or Injury [] Angry [] Fearful [] Anxious [] Often cries [] Exhaustion [] Unable to work [] Unable to attend evangelical [] Unable to walk/stand [] Unable to read [] Unable to drive [] Unable to eat/drink [] Unable to sleep [] Unable to be with family [] Patient intubated [] Other: Summary Time spent with patient 10 min
[2023-03-13] MEDS: quetiapine 100 mg Tablet PO ×2 (10:16→21:39)
[2023-03-13] MEDS: lamoTRIgine 100 mg Tablet 150 MG PO ×2 (10:17→17:55)
[2023-03-13] MEDS: aspirin 81 mg EC Tablet PO (10:17)
[2023-03-13] MEDS: sertraline 50 mg Tablet 25 MG PO (10:18)
--- NOTE | 2023-03-13 13:50 | P.PN_ITS ---
Subjective Subjective: Earlier today morning patient possibly had a fall. Patient was found down on floor slumped onto the right side. Patient did not complain of any pain. No imaging was ordered. Today morning examination patient lying comfortably in bed, sleeping but wakes up to verbal stimulus, able to tell me her name but is on diet and not able to participate in any pain history. Vitals appreciated. Overnight has remained hemodynamically stable and afebrile. Blood was appreciated for a stable CBC, CMP, A1c of 5.3 and lipid panel appreciated. Vitals/I&O/Wt Last Vital Signs Temp 98.3 F 03/13/23 11:02 Pulse 85 03/13/23 11:02 Resp 18 03/13/23 08:25 BP 127/73 03/13/23 11:02 Pulse Ox 92 03/13/23 11:02 O2 Del Method Nasal Cannula 03/13/23 11:02 O2 Flow Rate 2 03/13/23 08:25 03/12/23 03/13/23 03/13/23 22:59 06:59 14:59 Intake Total 50 / 50 Balance 50 / 50 Weight last 48 hrs Weight 80.739 kg Physical Exam Narrative: General: No acute distress, sleepy but wakes up to verbal stimulus, AO x1 on waking up, slow speech HEENT: PERRLA, pupils bilaterally equal and reactive Chest: Normal vesicular breath sounds, no added sounds, equal good air entry bilaterally CVS: S1-S2 regular, no murmurs, no tachycardia, no gallops, no rubs Abdomen: Soft, nontender, no organomegaly, bowel sounds present Neuro: Left-sided facial droop, power right upper limb and lower limb 2/5, sleeping well on waking up slurred speech, seems confused but not sure if it is different than baseline Data 03/13/23 03:28 03/13/23 03:28 Micro: Microbiology 03/12/23 15:53 Urine Culture - Preliminary Urine,Clean Catch A&P Assessment and plan (1) Cerebrovascular accident: Appreciate CT head, CTA head and neck done in the ER. Not deemed a candidate for tPA as per neurology. Appreciate A1c, lipid panel. PT/OT/speech evaluation appreciated. Diet advance as per speech evaluation. Check echocardiogram. Goal blood pressure less than 140/90 mmHg now. At home takes metoprolol 50 succinate daily, amlodipine 10 mg oral daily. Will start medications accordingly. Aspirin 81 mg daily, atorvastatin 40 mg daily. (2) Dementia, vascular: Continue with home medications of Seroquel and sertraline. Patient is a long- term senior care resident. Qualifiers: Dementia behavioral disturbance: with behavioral disturbance Qualified Code(s): F01.51 - Vascular dementia with behavioral disturbance (3) Seizure disorder: Continue with home dose of lamotrigine. Seizure precautions. (4) COPD (chronic obstructive pulmonary disease): DuoNebs every 6 hour, budesonide twice daily. Maintain saturation over 88%. (5) Anxiety: (6) Major depression, chronic: (7) Brain aneurysm: Plan Fall: Unwitnessed. Get CT head to rule out intracranial hemorrhage. Fall precautions. CODE STATUS: As per documentation from senior care and conversation at senior care patient is full code. Patient has a guardian by name Alana Adrian. Diet as per speech evaluation. Heparin 5000 every 12 hourly for DVT prophylaxis Famotidine for PUD prophylaxis Attestations Medical Necessity Statement*: Requires further hospitalization for evaluation of stroke and the patient to was admitted from senior care where she lives for advanced dementia and post stroke care, unwitnessed fall while intracranial hemorrhage is ruled out and further therapies evaluation is done Diagnoses Cerebrovascular accident I63.9 Dementia, vascular F01.51 Dementia behavioral disturbance: with behavioral disturbance Seizure disorder G40.909 COPD (chronic obstructive pulmonary disease) J44.9 Anxiety F41.9 Major depression, chronic F32.9 Brain aneurysm I67.1
--- NOTE | 2023-03-13 13:53 | CTR_ITS ---
PROCEDURE INFORMATION: Exam: CT Head Without Contrast Exam date and time: 03/13/2023 3:25 PM Age: 63 years old Clinical indication: Injury or trauma; Fall; Blunt trauma (contusions or hematomas); Prior surgery; Surgery date: 6+ months; Surgery type: Previous brain bleed; Additional info: Post stroke, fall TECHNIQUE: Imaging protocol: Computed tomography of the head without contrast. Radiation optimization: All CT scans at this facility use at least one of these dose optimization techniques: automated exposure control; mA and/or kV adjustment per patient size (includes targeted exams where dose is matched to clinical indication); or iterative reconstruction. REPORTING DATA: Count of CT and Cardiac NM exams in prior 12 months: This patient has received 5 known CTs and 0 known cardiac nuclear medicine studies in the 12 months prior to the current study. COMPARISON: CT head thrombolytic [id number] 03/12/2023 3:12 PM RADIATION DOSE METRICS: Total DLP (mGy-cm): 1055 FINDINGS: Brain: Left frontal temporal lobe chronic cystic encephalomalacia and surgical clips. Large amount diffuse white matter disease likely reflecting chronic microvascular ischemic changes. Cerebral ventricles: No ventriculomegaly. Paranasal sinuses: Visualized sinuses are unremarkable. No fluid levels. Mastoid air cells: Visualized mastoid air cells are well aerated. Bones/joints: Left frontal craniotomy changes. Soft tissues: Unremarkable. CT/CT head wo con* [id number] IMPRESSION: 1. Left frontal temporal lobe chronic cystic encephalomalacia and surgical clips. 2. Left frontal craniotomy changes. 3. Large amount diffuse white matter disease likely reflecting chronic microvascular ischemic changes.
[2023-03-13] MEDS: tamsulosin 0.4 mg Capsule PO (17:53)
[2023-03-13] MEDS: pantoprazole DR 40 mg Tablet PO (17:55)
[2023-03-13] MEDS: atorvastatin 40 mg Tablet PO (21:39)
--- NOTE | 2023-03-14 03:43 | PC.NURSE ---
Patient is refusing to participate in [facility] stroke assessment at this time. Patient is responding no to all questions and commands related to assessment.
[2023-03-14 03:56] VITALS: BP 107/70; PULSE 90; RESP 17; TEMP 36.9; O2SAT 91
[2023-03-14] MEDS: heparin 5,000 unit/mL INJ 1 mL 5000 UNIT SUBCUT (05:27)
[2023-03-14] MEDS: pantoprazole DR 40 mg Tablet PO (05:27)
[2023-03-14 08:00] VITALS: BP 117/72; PULSE 88; PULSE 96; RESP 16; RESP 22; TEMP 36.6; O2SAT 93
[2023-03-14] MEDS: budesonide 0.5 mg/2 mL Neb INHALATION (09:14)
[2023-03-14] MEDS: ipratropium-albuterol 3 mL Neb INHALATION (09:15)
[2023-03-14] MEDS: lamoTRIgine 100 mg Tablet 150 MG PO (09:56)
[2023-03-14] MEDS: sertraline 50 mg Tablet 25 MG PO (09:56)
[2023-03-14] MEDS: aspirin 81 mg EC Tablet PO (09:57)
[2023-03-14] MEDS: quetiapine 100 mg Tablet PO (09:57)
--- NOTE | 2023-03-14 10:46 | PM.DCS ---
Discharge Providers Date of Admission: 03/12/23 18:01 Date of Discharge: March 14, 2023 Attending Provider at Admission: Walker Martin MD Attending Provider at Discharge: Walker Martin MD Primary Care Provider: Jr Cardenas MD Diagnoses at Discharge Discharge Diagnosis (1) Cerebrovascular accident: Status: Acute (2) Dementia, vascular: Status: Acute Qualifiers: Dementia behavioral disturbance: with behavioral disturbance Qualified Code(s): F01.51 - Vascular dementia with behavioral disturbance (3) Seizure disorder: Status: Acute (4) COPD (chronic obstructive pulmonary disease): Status: Acute (5) Anxiety: Status: Acute (6) Major depression, chronic: Status: Acute (7) Brain aneurysm: Status: Acute Reason for Visit Reason for Visit: FALL AT 5 AM Hospital Course Hospital Course Patient with the ER physician. Sherri Mcintyre is a 63 year old female who is a correction resident with past medical history of vascular dementia, stroke, cerebral aneurysm, COPD, hypertension hyperlipidemia, seizure disorder had a fall in the morning around 5 AM and was seen at the local hospital where head CT was deemed to be normal though report is not available.? Patient was discharged back to the correction.? At 7 AM patient was found to have a right-sided facial droop along with right-sided weakness and was brought to the ER.? Patient was seen in the ER at 1505.? Last known normal at 7 AM.? In the ER she was found to have right-sided facial droop with severe dysarthria and weakness in the right upper and lower limb.? Patient is not able to participate in history taking given her dementia and some confusion. Patient was admitted to the hospital further evaluation and management of recurrent strokes. During hospitalization patient was seen by PT/OT and speech therapy. Diet was advanced as per speech therapy. Patient's participation with different therapies was limited given her baseline mentation. She has been discharged back to SNF at baseline mentation with advised to continue changing diet as per speech evaluation and physical therapy as possible. Aspirin has been added to her medication list. Amlodipine has been stopped. Physical Exam Narrative: General: No acute distress, sleepy but wakes up to verbal stimulus, AO x1 on waking up, slow speech HEENT: PERRLA, pupils bilaterally equal and reactive Chest: Normal vesicular breath sounds, no added sounds, equal good air entry bilaterally CVS: S1-S2 regular, no murmurs, no tachycardia, no gallops, no rubs Abdomen: Soft, nontender, no organomegaly, bowel sounds present Neuro: Left-sided facial droop, power right upper limb and lower limb 2/5, sleeping well on waking up slurred speech, seems confused but not sure if it is different than baseline Discharge Data Studies Completed and Pending Completed Studies During Hospitalization Category Date Time Status CT angio headneck* [id number] Stat Cat Scan 03/12/23 15:[address] head thrombolytic [id number] Stat Cat Scan 03/12/23 15:[address] head wo con* [id number] Routine Cat Scan 03/13/23 13:53 Completed XR chest 1V portable [id number] Stat Exams 03/12/23 15:08 Completed Pending at discharge Category Date Time Status Urine Culture Stat Lab 03/12/23 15:53 Results Radiology Impressions Chest X-Ray 03/12/23 15:08 IMPRESSION: 1. No acute cardiopulmonary finding. Head/Neck CTA 03/12/23 15:08 IMPRESSION: 1. Aneurysm clips anterior communicating artery and M1 segment left MCA. 2. Diminished flow within portions of the left MCA distal to the aneurysm clip. No major branch occlusion. 3. Large area of encephalomalacia left frontal-temporal lobe secondary to large old insult. IMPRESSION: 1. Technically limited assessment of the right and left carotid bulbs for carotid stenosis due to swallowing motion artifact. Recommend carotid Doppler exam for further evaluation. 2. 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 REFERENCES: NASCET CRITERIA. The degree of stenosis in the cervical segment of the internal carotid artery is based on NASCET criteria. Normal is no stenosis. Mild is less than 50% stenosis. Moderate is 50-69% stenosis. Severe is 70% to 99% stenosis. Total occlusion is no detectable patent lumen. Head CT 03/13/23 13:53 IMPRESSION: 1. Left frontal temporal lobe chronic cystic encephalomalacia and surgical clips. 2. Left frontal craniotomy changes. 3. Large amount diffuse white matter disease likely reflecting chronic microvascular ischemic changes. Laboratory Results WBC 7.4 10^3/uL (4.0-10.0) 03/13/23 03:28 RBC 4.69 10^6/uL (4.1-5.3) 03/13/23 03:28 Hgb 13.9 g/dL (11.5-15.3) 03/13/23 03:28 Hct 42.3 % (37.0-47.0) 03/13/23 03: MCV 90.2 fl (81-99) 03/13/23 03: MCH 29.6 pg (28.0-34.0) 03/13/23 03: MCHC 32.9 g/dL (30.0-36.0) 03/13/23 03: RDW 13.6 % (12.1-15.1) 03/13/23 03:28 Plt Count 239 10^3/cmm (130-400) 03/13/23 03: MPV 10.6 fL (7.4-10.4) H 03/13/23 03:28 Neut % (Auto) 66.4 % 03/13/23 03: Lymph % (Auto) 22.0 % 03/13/23 03:28 [place] % (Auto) 9.3 % 03/13/23 03:28 Eos % (Auto) 1.9 % 03/13/23 03:28 Baso % (Auto) 0.3 % 03/13/23 03: Neut # (Auto) 4.91 10^3/uL (1.8-7.7) 03/13/23 03: Lymph # (Auto) 1.6 10^3/uL (0.8-4.8) 03/13/23 03:28 [place] # (Auto) 0.7 10^3/uL (0.2-0.9) 03/13/23 03:28 Eos # (Auto) 0.1 10^3/uL (0.0-0.8) 03/13/23 03:28 Baso # (Auto) 0.0 10^3/uL (0.0-0.1) 03/13/23 03: Nucleated RBC % (auto) 0 % 03/13/23 03:28 Nucleated RBCs # 0.0 /100WBC 03/13/23 03:28 PT 13.80 SECONDS (12.1-14.9) 03/12/23 15:40 INR 1.03 (0.8-1.2) 03/12/23 15:40 APTT 29.1 SECONDS (23.9-36.7) 03/12/23 15:40 Sodium 139 mmol/L (136-145) 03/13/23 03:28 Potassium 3.5 mmol/L (3.5-5.1) 03/13/23 03:28 Chloride 101 mmol/L (98-107) 03/13/23 03:28 Carbon Dioxide 26 mmol/L (22-29) 03/13/23 03:28 Anion Gap 15.5 (5-19) 03/13/23 03:28 BUN 9 mg/dL (8-23) 03/13/23 03:28 Creatinine 0.5 mg/dL (0.5-0.9) 03/13/23 03:28 GFR Calculation 124.6 mL/min (90-130) 03/13/23 03:28 Glucose 93 mg/dL (65-115) 03/13/23 03:28 POC Glucose 98 mg/dL (70-110) 03/12/23 15:33 Estimat Average Glucose 105 03/13/23 03:28 Hemoglobin A1c 5.3 % (4.0-6.0) 03/13/23 03:28 Calculated Osmolality 286 mOsm/kg (285-295) 03/13/23 03:28 Calcium 9.0 mg/dL (8.5-10.5) 03/13/23 03:28 Iron 58 ug/dL (37-145) 03/12/23 15:40 TIBC 228 mcg/dl 03/12/23 15:40 % Saturation 25.4 % (20-50) 03/12/23 15:40 Unsat Iron Binding 170 ug/dL (112-347) 03/12/23 15:40 Total Bilirubin 0.4 mg/dL (0.15-1.2) 03/13/23 03:28 AST 12 U/L (0-32) 03/13/23 03:28 ALT 9 U/L (0-33) 03/13/23 03:28 Alkaline Phosphatase 142 U/L (35-105) H 03/13/23 03:28 Total Protein 7.1 g/dL (6.6-8.7) 03/13/23 03:28 Albumin 3.8 g/dL (3.5-5.2) 03/13/23 03: Globulin 3.3 g/dL (1.3-4.6) 03/13/23 03:28 Triglycerides 137 mg/dL (0-150) 03/13/23 03: Cholesterol 179 mg/dL (0-200) 03/13/23 03: LDL Cholesterol, Calc 105 mg/dL (50-129) 03/13/23 03: HDL Cholesterol 47 mg/dL (60-100) L 03/13/23 03:28 LDL/HDL Ratio 2.23 RATIO (0.00-3.22) 03/13/23 03: Cholesterol/HDL Ratio 3.81 mg/dL (0.0-4.40) 03/13/23 03:28 Vitamin B12 534 pg/mL (232-1245) 03/12/23 15:40 Folate 9.0 ng/mL (4.8-37.3) 03/13/23 03: TSH 0.79 uIU/mL (0.27-4.20) 03/12/23 15:40 Urine Color Light yellow (Yellow) 03/12/23 15:53 Urine Appearance Clear (CLEAR) 03/12/23 15:53 Urine pH 8 (5-7) H 03/12/23 15:53 Ur Specific [place] 1.010 (1.005-1.030) 03/12/23 15:53 Urine Protein Neg (Negative) 03/12/23 15:53 Urine Glucose (UA) Norm (Normal) 03/12/23 15:53 Urine Ketones 1+ (Negative) H 03/12/23 15:53 Urine Blood 3+ (Negative) H 03/12/23 15:53 Urine Nitrate Negative (Negative) 03/12/23 15:53 Urine Bilirubin Neg (Negative) 03/12/23 15:53 Prot Sulfosalicylic Acd Negative (Negative) 03/12/23 15:53 Urine Urobilinogen Norm mg/dL (Negative) 03/12/23 15:53 Ur Leukocyte Esterase Negative (Negative) 03/12/23 15:53 Urine RBC 15-25 /hpf (0-2) H 03/12/23 15:53 Urine WBC Rare /hpf (0-5) 03/12/23 15:53 Ur Squamous Epith Cells 5-10 /hpf (0-5) H 03/12/23 15:53 Amorphous Sediment Not Reportable 03/12/23 15:53 Urine Bacteria Trace /hpf (NONE) 03/12/23 15:53 Urine Opiates Screen Negative ng/mL (Negative) 03/12/23 15:53 Ur Barbiturates Screen Negative ng/mL (Negative) 03/12/23 15:53 Ur Phencyclidine Scrn Negative ng/mL (Negative) 03/12/23 15:53 Ur Amphetamines Screen Negative ng/mL (Negative) 03/12/23 15:53 U Benzodiazepines Scrn Negative ng/mL (Negative) 03/12/23 15:53 Urine Cocaine Screen Negative ng/mL (Negative) 03/12/23 15:53 U Marijuana (THC) Screen Negative ng/mL (Negative) 03/12/23 15:53 Vitals Last Vital Signs Temp 97.9 F 03/14/23 08:00 Pulse 96 03/14/23 08:00 Resp 22 H 03/14/23 08:00 BP 117/72 03/14/23 08:00 Pulse Ox 93 03/14/23 08:00 O2 Del Method Nasal Cannula 03/14/23 08:00 O2 Flow Rate 2 03/14/23 08:00 Discharge Plan Discharge Patient Disposition: Xfer SNF Condition: Stable Prescriptions: New aspirin 81 mg Tablet,Delayed Release (Dr/Ec) 81 mg PO DAILY Qty: 30 0RF Continued lamotrigine 150 mg tablet 150 mg PO BID@08,18 pantoprazole 20 mg tablet,delayed release (DR/EC) 20 mg PO BID@06,18 tamsulosin 0.4 mg capsule 0.4 mg PO DAILY@18 quetiapine [Seroquel] 100 mg tablet 100 mg PO BID@08,20 simvastatin 20 mg tablet 20 mg PO DAILY@18 metoprolol succinate [Toprol XL] 50 mg tablet extended release 24 hr 50 mg PO DAILY@08 Tylenol 325 mg Tablet 650 mg PO Q6H PRN (Reason: Pain) Irma-Tussin 100 mg/5 mL Liquid 200 mg PO Q6H PRN (Reason: Congestion) potassium chloride 20 mEq tablet,ER particles/crystals 20 meq PO DAILY@08 sertraline 25 mg tablet 25 mg PO DAILY@08 budesonide 0.5 mg/2 mL suspension for nebulization 0.5 mg inhalation BID@08,18 Claritin 10 mg Tablet 10 mg PO DAILY@08 Perforomist 20 mcg/2 mL solution for nebulization 2 ml INHALATION BID@08,18 Modern Mushroom Multivitamin 1 tab PO DAILY albuterol sulfate 90 mcg/actuation HFA aerosol inhaler 2 puff inhalation Q6H PRN (Reason: shortness of breath or wheezing) Discontinued amlodipine 10 mg tablet 10 mg PO DAILY@08 Discharge Orders: Discharge Order (Routine); Ordered 03/14/23 Ordered By: Walker Martin Other Ambulatory Orders: Physical Therapy Outpatient in Home Eval and Treat Other (Order) Facility: [facility] - Location: Physical Therapy Ordered By: Walker Martin Speech Language Pathology Eval and Treat Outpatient (Order) Timeframe: 1 Week Facility: [facility] - Location: Speech Therapy [place] Ordered By: Walker Martin Referrals: [facility] [Outside] Jr Cardenas MD [Primary Care Provider] - 7-10 days Discharge Diet: As Directed Discharge Activity: Resume usual activity and Increase activity as tolerated Patient Instructions: Aspirin (By mouth), Ischemic Stroke (DC), Opioid Safety Activity Restrictions/Additional Instructions: Dysphagia level 5 minced and moist diet. Patient will continue with speech and physical therapy. All the medications have remained the same except amlodipine has been stopped. Aspirin 81 mg has been added to the medication list. Discharge Attestations Time Spent in Discharge Care*: greater than 30 min Specific Discharge Activities: discussing with pcp/other providers, discussing with bilingual patient support caseworker/social workers/dc planners, documenting/other paperwork and evaluating patient/reviewing data Status at Discharge: Cognitive status at discharge: moderately impaired cognition, Behavioral status at discharge: cooperative, Functional status at discharge: other assisted ambulation, Overall status at discharge: patient is progressing back to baseline Quality Metrics Clinical Quality Measures [ Cerebrovascular Accident { Contraindication to Antithrombotic: None; antithrombotic prescribed; Contraindication to Anticoagulation: Overlap treatment not indicated; Contraindication to Statin: None; Statin prescribed; Contraindication to tPA: Did not meet criteria;}] Coding Level of Care Code 25337 Total time (in minutes) for Discharge: 40 Diagnoses Cerebrovascular accident I63.9 Dementia, vascular F01.51 Dementia behavioral disturbance: with behavioral disturbance Seizure disorder G40.909 COPD (chronic obstructive pulmonary disease) J44.9 Anxiety F41.9 Major depression, chronic F32.9 Brain aneurysm I67.1
[2023-03-14 11:54] VITALS: BP 139/85; PULSE 102; RESP 18; TEMP 36.5; O2SAT 91
[2023-03-14 17:00] VITALS: BP 139/85; PULSE 102; RESP 18; TEMP 36.5; O2SAT 91
== END 2023-03-14 16:15 | disposition skilled nursing facility (03) | DRG 65 ==
LOC: ER 16:40 → MEDSURG 18:18
PROVIDERS: Admitting Provider Student in an Organized Health Care Education/Training Program; Emergency Provider Emergency Medicine; PCP Internal Medicine; Visit Provider Student in an Organized Health Care Education/Training Program
DX: I63.9 Cerebral infarction, unspecified (principal); G81.91 Hemiplegia, unspecified affecting right dominant side; R29.810 Facial weakness; R47.1 Dysarthria and anarthria; R29.715 NIHSS score 15; Z86.73 Personal history of transient ischemic attack (TIA), and cerebral infarction without residual deficits; F01.50 Vascular dementia, unspecified severity, without behavioral disturbance, psychotic disturbance, mood disturbance, and anxiety; J44.9 Chronic obstructive pulmonary disease, unspecified; F41.9 Anxiety disorder, unspecified; F32.9 Major depressive disorder, single episode, unspecified; I10 Essential (primary) hypertension; E78.5 Hyperlipidemia, unspecified; G40.909 Epilepsy, unspecified, not intractable, without status epilepticus; W18.30XA Fall on same level, unspecified, initial encounter; Y93.9 Activity, unspecified; Y92.129 Unspecified place in nursing home as the place of occurrence of the external cause; Z79.51 Long term (current) use of inhaled steroids; K21.9 Gastro-esophageal reflux disease without esophagitis
CPT/HCPCS: 36415; 36416; 70450; 70496; 70498; 71045; 80053; 80061; 80306; 81001; 82607; 82746; 82962; 83036; 83540; 83550; 84443; 85025; 85610; 85730; 87086; 92523; 92526; 92610; 93005; 94640; 96361; 96372; 96374; 97161; 97165; 97530; 99285; J1644; J7626; Q9967

== ENCOUNTER 2023-03-26 11:31 | Emergency (ER) | payer MEDICARE, MEDICAID, SELFPAY ==
--- NOTE | 2023-03-26 11:40 | CT_ITS ---
WS: [id number] CT HEAD NONCONTRAST HISTORY: SYMPTOMS OF STROKE TECHNIQUE: Contiguous axial imaging performed through the brain in 2.5 mm imaging. Bone and soft tiss ue windows. Sagittal and coronal reformats reviewed. All CT scans at [facility] use at least one of these dose optimization techniques: automated exposure control; mA and/or kV adjustment per pa tient size (includes targeted exams where dose is matched to clinical indication); or iterative recon struction. DLP: 1048.03 mGy-cm. COMPARISON: 03/13/2023 No acute intracranial hemorrhage or edema. Significant encephalomalacia involving large portions of the LEFT frontal, temporal and parietal lobe s with ex vacuole dilatation of the lateral ventricle. There is extensive bilateral low attenuation w ithin the white matter from small vessel ischemic disease. As compared to the most recent exam no int erval change. There are additional surgical clips in the area of encephalomalacia may be from prior a neurysm clipping. Ventricles: Ex vacuole dilatation LEFT lateral ventricle predominantly involving the frontal horn. No inferior displacement of the cerebellar tonsils. Paranasal sinuses: As visualized are clear. Mastoid air cells: Well pneumatized. Calvarium and scalp: Large LEFT frontotemporal craniotomy. CT/CT head thrombolytic 28203 IMPRESSION: 1. Large area of encephalomalacia involving portions of the LEFT frontal, temp oral and parietal lobes. No acute blood products. 2. Aneurysm clips in the region of the LEFT MCA and anterior communicating art svetlana. 3. Extensive small vessel ischemic disease. No acute interval change since 02/16. Notified Avinash Oreilly DO at 03/26/2023 11:49 AM.
[2023-03-26 11:45] VITALS: BP 125/98; PULSE 68; TEMP 36.4; O2SAT 93; BMI 27.1
--- NOTE | 2023-03-26 12:05 | CT_ITS ---
WS: [id number] CT ANGIOGRAM CEREBRAL AND CAROTID ARTERIES HISTORY: acute CVA, 16 hrs LKW TECHNIQUE: CT angiogram is performed of the carotid and cerebral arteries. During arterial injection imaging is obtained from the skull vertex to the aortic arch in 1.25 mm imaging. Coronal and sagittal reformats are submitted. Additional multi planar reformats of the carotid and cerebral arteries are submitted, MIP imaging also reviewed. NASCET criteria utilized. [facility] CT [facility] at least one of these dose optimization techniques: automated exposure control; mA and/or kV adjust ment per patient size (includes targeted exams where dose is matched to clinical indication); or iter ative reconstruction. CONTRAST: Omnipaque 350; 100 mL IV. DLP: 1015.07 mGy.cm COMPARISON: 03/12/2023 Carotid Angiogram: Right carotid: Common carotid artery: Motion artifact involving the proximal RIGHT cervical carotid artery. Cannot e xclude stenosis. No stenosis was identified on her recent study. The mid to distal cervical, carotid artery is normal. Internal carotid artery: Small amount of calcified plaque at the bifurcation. No stenosis. External carotid artery: Patent. Left carotid: Common carotid artery: Motion artifact proximally. No occlusions. Internal carotid artery: Small amount of calcified plaque at the origin. No high-grade stenosis. External carotid artery: Patent. Right vertebral artery: Small caliber but patent. Left vertebral artery: Dominant and patent. There is a small amount of plaque. Subclavian arteries: No stenosis or significant abnormality. Upper thorax: Significant motion artifact. Thyroid gland: Normal. Osseous structures: Unremarkable. CEREBRAL ANGIOGRAM: Intracranial vertebral arteries: Patent. Dominant LEFT vertebral artery. Basilar artery: No significant stenosis or occlusion. No aneurysm. Intracranial Internal carotid arteries: Mild atherosclerotic plaque. No high-grade stenosis or occlus ions. Middle cerebral arteries: Small amount of plaque at the origin of the RIGHT MCA. Normal RIGHT MCA oth erwise. Aneurysm clips near the LEFT M1 segment. The LEFT M1 and M2 segments are small caliber as on the prior study. No occlusions. Anterior cerebral arteries and ACOM: Aneurysm clips along the anterior communicating artery. No occlu sions within the anterior cerebral arteries. Posterior cerebral arteries and PCOM's: Dominant RIGHT posterior communicating artery. Posterior cere bral arteries are patent. Dural venous sinuses are normally enhancing. Mastoid air cells: Normal. Paranasal sinuses: Normal. Calvarium: Large LEFT frontotemporal craniotomy sites. CT/CT angio headneck* [id number] IMPRESSION: 1. No high-grade or occlusions cervical carotid arteries. Stenosis less than 5 0%. 2. Mild intracranial carotid artery atherosclerosis. 3. Prior aneurysm clippings near the LEFT M1 and anterior communicating arteri es. 4. Paucity of vessels involving the LEFT M1 and M2 segments, chronic. 5. No large vessel occlusions. No thrombus.
[2023-03-26 12:10] VITALS: BP 137/83; PULSE 64; RESP 27; O2SAT 96
--- NOTE | 2023-03-26 12:12 | ECG_ITS ---
[facility] Test Date: 2023-03-26 Pat Name: Sherri Mcintyre Department: Room: Gender: Female Wrong Address Clerk: : 1960 Requested By: Avinash Umana Order Number: [id number] Mis MD: Stephen Barragan M.D. Measurements Intervals Alfred Rate: 64 P: 56 VT: 155 QRS: -69 QRSD: 122 T: 18 QT: 451 QTc: 466 Interpretive Statements SINUS RHYTHM RIGHT BUNDLE BRANCH BLOCK [120+ ms QRS DURATION, UPRIGHT V1, 40+ ms S IN I/aVL/V4/V5/V6] LEFT ANTERIOR FASCICULAR BLOCK [QRS AXIS <= -45, QR IN I, RS IN II] POSSIBLE ANTERIOR MYOCARDIAL INFARCTION , OF INDETERMINATE AGE [30 ms Q WAVE IN V3/V4, OR R < 0.2 mV IN V4] Compared to ECG 03/12/2023 15:31:31 Right bundle-branch block now present Left anterior fascicular block now present Incomplete right bundle-branch block no longer present Myocardial infarct finding still present Electronically Signed On 03-26-2023 16:18:20 CDT by Stephen Barragan M.D. [email or web address]
[2023-03-26 12:13] LABS: Basophils # 0.1 10^3/uL (0.0-0.1); Basophils % 0.6 %; Eosinophils # 0.3 10^3/uL (0.0-0.8); Eosinophils % 3.7 %; Hematocrit 45.5 % (37.0-47.0); Hemoglobin 14.4 g/dL (11.5-15.3); Lymphocytes # 3.1 10^3/uL (0.8-4.8); Lymphocytes % 37.7 %; Mean Corpuscular HGB Conc 31.6 g/dL (30.0-36.0); Mean Corpuscular Hemoglobin 29.7 pg (28.0-34.0); Mean Corpuscular Volume 93.8 fl (81-99); Mean Platelet Volume 11.2 fL (7.4-10.4); Monocytes # 0.7 10^3/uL (0.2-0.9); Monocytes % 8.5 %; Neutrophils # 4.09 10^3/uL (1.8-7.7); Neutrophils % 49.3 %; Nucleated Red Blood Cells % 0 %; Platelet Count 221 10^3/cmm (130-400); Red Blood Count 4.85 10^6/uL (4.1-5.3); White Blood Count 8.3 10^3/uL (4.0-10.0)
[2023-03-26 12:18] LABS: INR 1.02 (0.8-1.2); Partial Thromboplastin Time 29.2 SECONDS (23.9-36.7)
[2023-03-26 12:20] VITALS: BP 122/83; RESP 18
[2023-03-26 12:24] LABS: Alanine Aminotransferase 15 U/L (0-33); Albumin Level 3.6 g/dL (3.5-5.2); Alkaline Phosphatase 119 U/L (35-105); Anion Gap 13.2 (5-19); Aspartate Amino Transferase 12 U/L (0-32); Blood Urea Nitrogen 17 mg/dL (8-23); Calcium 9.2 mg/dL (8.5-10.5); Carbon Dioxide 29 mmol/L (22-29); Chloride 104 mmol/L (98-107); Glomerular Filtration Rate 84.5 mL/min (90-130); Glucose 90 mg/dL (65-115); Osmolality Calculated 295 mOsm/kg (285-295); Potassium 4.2 mmol/L (3.5-5.1); Sodium 142 mmol/L (136-145); Total Bilirubin 0.2 mg/dL (0.15-1.2); Total Protein 6.6 g/dL (6.6-8.7)
[2023-03-26 12:30] VITALS: BP 137/83; PULSE 66; RESP 18; O2SAT 98
--- NOTE | 2023-03-26 12:35 | ED_ITS ---
HPI - Neuro Symptoms/Deficit General: Chief Complaint: Neuro Symptoms/Deficit Stated Complaint: possible stroke Time Seen by Provider: 03/26/23 11:45 Source: patient and EMS Mode of arrival: EMS History of Present Illness: 63-year-old female who presents to the emergency room from the long-term. She was last seen in normal state last night around 8:00 this morning thought she was sleeping in when they did finally try to arouse her she had right-sided facial paralysis slurring of her speech and right arm and leg weakness. Patient previously had a brain surgery. She is not on any anticoagulants at this time. Patient previously had a brain aneurysm and has had a craniotomy for same. She has a history of vascular dementia as well. Onset (ago): hour(s) Time: 11:45 Last Observed Normal: 22:00 Timing confirmed by: caregiver Location: speech, right face, right arm and right leg Severity: severe Quality: weak Relieving factors: none Exacerbating factors: none Associated symptoms: Reports nausea and weakness; Deny chest pain, cough, short of breath or vomiting Treatments Prior to Arrival: none Review of Systems Const: Denies: fever(s) or chills ENMT: Denies: throat pain, ear or mastoid pain, nasal discharge or nasal congestion Card: Denies: chest pain Resp: Denies: dyspnea, productive cough or non-productive cough GI: Reports: nausea; Denies: abdominal pain or vomiting : Denies: dysuria, urinary frequency or urinary urgency Musc: Denies: neck pain or back pain Skin/Breast: Denies: rash or pruritus [facility] ED PFSH: Medical History Brain aneurysm COPD (chronic obstructive pulmonary disease) CVA (cerebral vascular accident) Dementia, vascular GERD (gastroesophageal reflux disease) HTN (hypertension) Hyperlipidemia Incontinence in female Seizure disorder Vitamin D deficiency Surgical History H/O brain surgery H/O excision of epidermal inclusion cyst History of 2 sections Family History Brother Hodgkins disease Father Stroke NIH stroke score NIHSS: Level Of Consciousness - 1a: 1 Level Of Consciousness Questions - 1b: One Correct Level Of Consciousness Commands - 1c: One Correct Best Gaze - 2: Normal Visual [place] - 3: Partial Hemianopia Facial Palsy - 4: Partial Paralysis Motor Arm Right - 5: Effort Against Silt Motor Arm Left - 5: No Drift Motor Leg Right - 6: No Effort Against Silt Motor Leg Left - 6: No Drift Limb Ataxia - 7: Present In Two Limbs Sensory - 8: Mild To Moderate Loss (Right arm and leg deficits to sharp touch) Best Language - 9: Severe Aphasia Dysarthia - 10: Severe Dysarthia Extinction And Inattention - 11: 1 Score: Total Score: 19 Physical Exam Const: GENERAL APPEARANCE: cooperative ORIENTATION/CONSCIOUSNESS: Yes awake HENMT: COMMON NORMALS: normocephalic, atraumatic and hearing grossly normal bilaterally HEAD & SCALP: normocephalic and atraumatic Resp: COMMON NORMALS: normal respiratory effort, No retractions, No use of accessory muscles and clear to auscultation bilaterally AUSCULTATION: clear to auscultation bilaterally Cardio: COMMON NORMALS: regular rate, regular rhythm and No murmurs present (Cardio) RATE: regular rate RHYTHM: regular rhythm GI: COMMON NORMALS: Soft to palpation and No hepatosplenomegaly present AUSCULTATION: Yes normoactive bowel sounds PALPATION: Yes Soft to palpation, No Tenderness to palpation present (GI), No Guarding due to palpation present (GI) and Yes No hepatosplenomegaly present Extremity: COMMON NORMALS: normal to inspection, capillary refill normal, no clubbing, cyanosis or edema, no calf tenderness and no pedal edema Skin: COMMON NORMALS: no rashes or lesions noted GENERAL SKIN EXAM: no rashes or lesions noted Course Vital Signs: Vital signs: Vital Signs Temperature 97.6 F 03/26/23 11:45 Pulse Rate 76 03/26/23 13:40 Respiratory Rate 26 H 03/26/23 13:40 Blood Pressure 138/84 03/26/23 13:40 Pulse Oximetry 96 03/26/23 13:40 Oxygen Delivery Me thod Nasal Cannula 03/26/23 13:40 Oxygen Flow Rate 2 03/26/23 13:40 MDM - Neuro Symptoms/Deficit Medical Decision Making KnownPatient has improved since arriving here initially she seemed rather tired she still has persistent right-sided deficits we contacted the long-term they stated they were concerned about left-sided deficits. She has none of those at this time this was all precipitated because she fell off the commode which patient and EMS had not told her history of previous CVA with residual deficits and these right-sided residual deficits and her speech issues are chronic. We will discharge patient back to the long-term no change in medications. Medical Records I reviewed the patient's medical records. Lab Data I reviewed the patient's lab results. 03/26/23 11:45 03/26/23 11:[address] 03/26/23 11:40 IMPRESSION: 1. Large area of encephalomalacia involving portions of the LEFT frontal, temporal and parietal lobes. No acute blood products. 2. Aneurysm clips in the region of the LEFT MCA and anterior communicating artery. 3. Extensive small vessel ischemic disease. No acute interval change since 03/13/2023. Notified Avinash Oreilly DO at 03/26/2023 11:49 AM. Head/Neck CTA 03/26/23 12:05 IMPRESSION: 1. No high-grade or occlusions cervical carotid arteries. Stenosis less than 50%. 2. Mild intracranial carotid artery atherosclerosis. 3. Prior aneurysm clippings near the LEFT M1 and anterior communicating arteries. 4. Paucity of vessels involving the LEFT M1 and M2 segments, chronic. 5. No large vessel occlusions. No thrombus. Laboratory Results WBC 8.3 10^3/uL (4.0-10.0) 03/26/23 11:45 RBC 4.85 10^6/uL (4.1-5.3) 03/26/23 11:45 Hgb 14.4 g/dL (11.5-15.3) 03/26/23 11:45 Hct 45.5 % (37.0-47.0) 03/26/23 11:45 MCV 93.8 fl (81-99) 03/26/23 11:45 MCH 29.7 pg (28.0-34.0) 03/26/23 11:45 MCHC 31.6 g/dL (30.0-36.0) 03/26/23 11:45 RDW 14.0 % (12.1-15.1) 03/26/23 11:45 Plt Count 221 10^3/cmm (130-400) 03/26/23 11:45 MPV 11.2 fL (7.4-10.4) H 03/26/23 11:45 Neut % (Auto) 49.3 % 03/26/23 11:45 Lymph % (Auto) 37.7 % 03/26/23 11:45 Holmes % (Auto) 8.5 % 03/26/23 11:45 Eos % (Auto) 3.7 % 03/26/23 11:45 Baso % (Auto) 0.6 % 03/26/23 11:45 Neut # (Auto) 4.09 10^3/uL (1.8-7.7) 03/26/23 11:45 Lymph # (Auto) 3.1 10^3/uL (0.8-4.8) 03/26/23 11:45 Holmes # (Auto) 0.7 10^3/uL (0.2-0.9) 03/26/23 11:45 Eos # (Auto) 0.3 10^3/uL (0.0-0.8) 03/26/23 11:45 Baso # (Auto) 0.1 10^3/uL (0.0-0.1) 03/26/23 11:45 Nucleated RBC % (auto) 0 % 03/26/23 11:45 Nucleated RBCs # 0.0 /100WBC 03/26/23 11:45 PT 13.70 SECONDS (12.1-14.9) 03/26/23 11:45 INR 1.02 (0.8-1.2) 03/26/23 11:45 APTT 29.2 SECONDS (23.9-36.7) 03/26/23 11:45 Sodium 142 mmol/L (136-145) 03/26/23 11:45 Potassium 4.2 mmol/L (3.5-5.1) 03/26/23 11:45 Chloride 104 mmol/L (98-107) 03/26/23 11:45 Carbon Dioxide 29 mmol/L (22-29) 03/26/23 11:45 Anion Gap 13.2 (5-19) 03/26/23 11:45 BUN 17 mg/dL (8-23) 03/26/23 11:45 Creatinine 0.7 mg/dL (0.5-0.9) 03/26/23 11:45 GFR Calculation 84.5 mL/min (90-130) L 03/26/23 11:45 Glucose 90 mg/dL (65-115) 03/26/23 11:45 Calculated Osmolality 295 mOsm/kg (285-295) 03/26/23 11:45 Calcium 9.2 mg/dL (8.5-10.5) 03/26/23 11:45 Total Bilirubin 0.2 mg/dL (0.15-1.2) 03/26/23 11:45 AST 12 U/L (0-32) 03/26/23 11:45 ALT 15 U/L (0-33) 03/26/23 11:45 Alkaline Phosphatase 119 U/L (35-105) H 03/26/23 11:45 Total Protein 6.6 g/dL (6.6-8.7) 03/26/23 11:45 Albumin 3.6 g/dL (3.5-5.2) 03/26/23 11:45 Globulin 3.0 g/dL (1.3-4.6) 03/26/23 11:45 Discharge Plan Discharge Patient Disposition: Home Clinical Impression: Brain aneurysm, Dementia, vascular, History of CVA with residual deficit Condition: Stable Prescriptions: No Action lamotrigine 150 mg tablet 150 mg PO BID@08,18 pantoprazole 20 mg tablet,delayed release (DR/EC) 20 mg PO BID@06,18 tamsulosin 0.4 mg capsule 0.4 mg PO DAILY@18 quetiapine [Seroquel] 100 mg tablet 100 mg PO BID@08,20 simvastatin 20 mg tablet 20 mg PO DAILY@18 metoprolol succinate [Toprol XL] 50 mg tablet extended release 24 hr 50 mg PO DAILY@08 acetaminophen [Tylenol] 325 mg Tablet 650 mg PO Q6H PRN (Reason: Pain) guaifenesin [Irma-Tussin] 100 mg/5 mL Liquid 200 mg PO Q6H PRN (Reason: Congestion) potassium chloride 20 mEq tablet,ER particles/crystals 20 meq PO DAILY@08 sertraline 25 mg tablet 25 mg PO DAILY@08 budesonide 0.5 mg/2 mL suspension for nebulization 0.5 mg inhalation BID@08,18 formoterol fumarate [Perforomist] 20 mcg/2 mL solution for nebulization 2 ml INHALATION BID@08,18 albuterol sulfate 90 mcg/actuation HFA aerosol inhaler 2 puff inhalation Q6H PRN (Reason: shortness of breath or wheezing) aspirin 81 mg Tablet,Delayed Release (Dr/Ec) 81 mg PO DAILY Qty: 30 0RF amlodipine 10 mg tablet 10 mg PO DAILY loratadine 10 mg Tablet 10 mg PO DAILY Discharge Orders: Discharge ED (Routine); Ordered 03/26/23 Ordered By: Avinash Oreilly Referrals: Jr Cardenas MD [Primary Care Provider] - Discharge Diet: Usual diet Discharge Activity: Increase activity as tolerated Patient Instructions: Opioid Safety, Pain Management Coding Level of Care Code ED Economic Historian for Donna Brock
[2023-03-26] MEDS: iohexol 350 mg/mL 500 mL Btl (per mL) IV (13:03)
[2023-03-26 13:40] VITALS: BP 138/84; PULSE 76; RESP 26; O2SAT 96
[2023-03-26 15:15] VITALS: BP 128/76; PULSE 66; RESP 20; O2SAT 98
== END 2023-03-26 15:18 | disposition home or self-care (01) ==
PROVIDERS: Emergency Provider Family Medicine; PCP Internal Medicine
DX: I67.1 Cerebral aneurysm, nonruptured (principal); F01.50 Vascular dementia, unspecified severity, without behavioral disturbance, psychotic disturbance, mood disturbance, and anxiety; I69.30 Unspecified sequelae of cerebral infarction; J44.9 Chronic obstructive pulmonary disease, unspecified; I10 Essential (primary) hypertension; E78.5 Hyperlipidemia, unspecified; Z79.899 Other long term (current) drug therapy; Z79.82 Long term (current) use of aspirin; Z86.73 Personal history of transient ischemic attack (TIA), and cerebral infarction without residual deficits
CPT/HCPCS: 70450; 70496; 70498; 80053; 85025; 85610; 85730; 93005; 99285; Q9967

== ENCOUNTER 2023-06-20 09:23 | Outpatient (CLI) | payer MEDICARE, MEDICAID, SELFPAY ==
--- NOTE | 2023-06-20 09:28 | FL_ITS ---
WS: [id number] EXAMINATION: FL barium swallow modifd [id number] REASON FOR EXAM: Oropharyngeal dysphagia ORDER DATE: 06/20/2023 9:36 AM FLUOROSCOPY TIME: 2min [id number] # OF SPOT FILMS: 0 TECHNIQUE: The oral cavity and upper pharyngeal and laryngeal region were observed in the lateral pro jection with fluoroscopy during swallowing. Different consistencies of liquid and food were mixed with barium and administered by the speech path ologist during fluoroscopy. FINDINGS: The oral stage was unremarkable with satisfactory initiation of the swallowing reflex. Mov ement of contrast coated material through the pharynx into the upper esophagus was observed. Occasion al posterior contrast leak, no evidence of penetration or aspiration. Please refer to speech patholog ist report for specific details regarding swallowing function. There was no significant residual. IMPRESSION: PLEASE REFER TO THE SPEECH PATHOLOGIST REPORT FOR ADDITIONAL DETAILS REGARDING THIS MODIFIED BARIUM S WALLOW STUDY.
== END 2023-06-20 09:24 | disposition home or self-care (01) ==
PROVIDERS: PCP Internal Medicine; Visit Provider Internal Medicine
DX: R13.12 Dysphagia, oropharyngeal phase (principal)
CPT/HCPCS: 74230; 92611

== ENCOUNTER 2023-12-27 17:15 | Emergency (ER) | payer MEDICARE, MEDICAID, SELFPAY ==
[2023-12-27 17:16] VITALS: BP 168/107; PULSE 85; TEMP 37; O2SAT 96
--- NOTE | 2023-12-27 17:19 | CTR_ITS ---
PROCEDURE INFORMATION: Exam: CT Head Without Contrast Exam date and time: 12/27/2023 5:28 PM Age: 63 years old Clinical indication: Injury or trauma; Fall; Other: Confusion; Prior surgery; Surgery date: 6+ months; Surgery type: Brain surgery 2003 TECHNIQUE: Imaging protocol: Computed tomography of the head without contrast. Radiation optimization: All CT scans at this facility use at least one of these dose optimization techniques: automated exposure control; mA and/or kV adjustment per patient size (includes targeted exams where dose is matched to clinical indication); or iterative reconstruction. COMPARISON: CT angio headneck* [id number] 03/26/2023 12:45 PM RADIATION DOSE METRICS: Total DLP (mGy-cm): 1974.61 FINDINGS: Brain: No hemorrhage. No edema. Encephalomalacia change noted within inferior aspect frontal and temporal lobes. A couple aneurysm clips noted. Moderate diffuse cerebral atrophy sequela of chronic small vessel ischemic disease. No mass effect. Cerebral ventricles: No ventriculomegaly. Paranasal sinuses: Visualized sinuses are unremarkable. No fluid levels. Mastoid air cells: Visualized mastoid air cells are well aerated. Bones/joints: Left-sided craniotomy changes. No acute fracture. Soft tissues: Right forehead hematoma. CT/CT head wo con* [id number] IMPRESSION: No acute intracranial abnormality.
--- NOTE | 2023-12-27 17:19 | XRR_ITS ---
PROCEDURE INFORMATION: Exam: XR Chest Exam date and time: 12/27/2023 5:33 PM Age: 63 years old Clinical indication: Injury or trauma; Other: Unknown; Patient HX: T arrives via [facility] EMS from [facility] C/O increased confusion. PT had a fall 2 weeks ago and was not evaluated at the time. PT has bruising around R eye. PT has HX of dementia but is more altered than baseline per EMS and staff. PT is alert to name and birthdate with patent airway and even respirations. TECHNIQUE: Imaging protocol: Radiologic exam of the chest. Views: 1 view. COMPARISON: CR XR chest 1V portable [id number] 03/12/2023 3:21 PM FINDINGS: Lungs: Unremarkable. No consolidation. Pleural spaces: Unremarkable. No pleural effusion. No pneumothorax. Heart/Mediastinum: Unremarkable. No cardiomegaly. Bones/joints: Unremarkable. XR/XR chest 1V portable [id number] IMPRESSION: No acute findings.
--- NOTE | 2023-12-27 17:19 | ED_ITS ---
HPI - Fall 2 General: Chief Complaint: Altered Mental Status Stated Complaint: AMS Time Seen by Provider: 12/27/23 17:16 History of Present Illness: 63-year-old female comes in today from [facility] long term. Reported patient had a fall approximately 2 weeks ago. Patient was seen by her family member today and noted that her left pupil was larger than her right pupil. I noticed the bruising was more extensive on the right face from the fall. Family was concerned and wanted patient evaluated in the ER. Family also reports that patient seemed more confused. Associated symptoms-after fall: Reports confusion Review of Systems 2 General: Reports: 10 or more systems reviewed and unremarkable except in HPI and below Neuro: Reports: confusion PFSH ED 2 PFSH: Medical History Brain aneurysm COPD (chronic obstructive pulmonary disease) CVA (cerebral vascular accident) Dementia, vascular GERD (gastroesophageal reflux disease) HTN (hypertension) Hyperlipidemia Incontinence in female Seizure disorder Vitamin D deficiency Surgical History H/O brain surgery H/O excision of epidermal inclusion cyst History of 2 sections Family History Brother Hodgkins disease Father Stroke Physical Exam 2 Const: COMMON NORMALS: alert HENMT: COMMON NORMALS: normocephalic HEAD & SCALP: normocephalic FACE & SINUS: other (Bruising right periorbital) Neck/C-Spine: COMMON NORMALS: full ROM Resp: COMMON NORMALS: normal respiratory effort and clear to auscultation bilaterally AUSCULTATION: clear to auscultation bilaterally Cardio: COMMON NORMALS: regular rate and regular rhythm RATE: regular rate RHYTHM: regular rhythm GI: COMMON NORMALS: Soft to palpation AUSCULTATION: Yes normoactive bowel sounds PALPATION: Yes Soft to palpation Back/Pelvis: COMMON NORMALS: thoracic and lumbar spine normal to inspection Extremity: COMMON NORMALS: no pedal edema Neuro: SENSORIUM/ORIENTATION: Yes alert Skin: COMMON NORMALS: turgor normal GENERAL SKIN EXAM: turgor normal Course 2 Vital Signs: Vital signs: Vital Signs Temperature 98.6 F 12/27/23 17:16 Pulse Rate 73 12/27/23 18:23 Blood Pressure 177/115 12/27/23 18:52 Pulse Oximetry 98 12/27/23 18:52 Oxygen Delivery Me thod Room Air 12/27/23 18:52 MDM - Fall Medical Decision Making Patient was brought to the ER from [facility] in [facility] for concerns of a fall x 2 weeks. Family was concerned due to patient's increased confusion and pupillary changes. Patient appears nontoxic. Patient appears in no acute distress. Respirations are even lungs are clear to auscultation. Abdomen soft nontender. Skin is warm and dry. Extremities have no swelling. Differential diagnosis includes intracranial bleeding, skull fracture, pneumonia, UTI. CT of the head showed no acute abnormality. CBC CMP was normal. Urinalysis was unremarkable. Believe the concerns were probably secondary to the patient's fall but no significant injury is noted at this time. Recommend continuation of routine care and follow-up with primary care for further evaluation. Patient reports understanding. Family was notified. residential was notified. Lab Data 12/27/23 17:46 12/27/23 17:[address] 12/27/23 17:19 IMPRESSION: No acute intracranial abnormality. Laboratory Results WBC 7.34 10^3/uL (3.29-11.43) 12/27/23 17:46 RBC 4.98 10^6/uL (3.85-5.65) 12/27/23 17:46 Hgb 14.70 g/dL (11.27-16.99) 12/27/23 17:46 Hct 44.9 % (36-47) 12/27/23 17:46 MCV 90.2 fl (85-98) 12/27/23 17:46 MCH 29.5 pg (27-33) 12/27/23 17:46 MCHC 32.7 g/dL (30-55) 12/27/23 17:46 RDW 13.8 % (12.1-15.1) 12/27/23 17:46 Plt Count 184 10^3/cmm (157-399) 12/27/23 17:46 MPV 11.4 fL (7.4-10.4) H 12/27/23 17:46 Neut % (Auto) 54.1 % 12/27/23 17:46 Lymph % (Auto) 34.2 % 12/27/23 17:46 Sunflower % (Auto) 6.1 % 12/27/23 17:46 Eos % (Auto) 4.9 % 12/27/23 17:46 Baso % (Auto) 0.4 % 12/27/23 17:46 Neut # (Auto) 3.97 10^3/uL (1.8-7.7) 12/27/23 17:46 Lymph # (Auto) 2.5 10^3/uL (0.8-4.8) 12/27/23 17:46 Sunflower # (Auto) 0.5 10^3/uL (0.2-0.9) 12/27/23 17:46 Eos # (Auto) 0.4 10^3/uL (0.0-0.8) 12/27/23 17:46 Baso # (Auto) 0.0 10^3/uL (0.0-0.1) 12/27/23 17:46 Nucleated RBC % (auto) 0 % 12/27/23 17:46 Nucleated RBCs # 0.0 /100WBC 12/27/23 17:46 Sodium 145 mmol/L (136-145) 12/27/23 17:46 Potassium 4.0 mmol/L (3.5-5.1) 12/27/23 17:46 Chloride 107 mmol/L (98-107) 12/27/23 17:46 Carbon Dioxide 28 mmol/L (22-29) 12/27/23 17:46 Anion Gap 14.0 (5-19) 12/27/23 17:46 BUN 10 mg/dL (8-23) 12/27/23 17:46 Creatinine 0.6 mg/dL (0.5-0.9) 12/27/23 17:46 GFR Calculation 101.0 mL/min (90-130) 12/27/23 17:46 Glucose 87 mg/dL (65-115) 12/27/23 17:46 Calculated Osmolality 298 mOsm/kg (285-295) H 12/27/23 17:46 Calcium 9.0 mg/dL (8.5-10.5) 12/27/23 17:46 Total Bilirubin 0.2 mg/dL (0.15-1.2) 12/27/23 17:46 AST 8 U/L (0-32) 12/27/23 17:46 ALT 6 U/L (0-33) 12/27/23 17:46 Alkaline Phosphatase 106 U/L (35-105) H 12/27/23 17:46 Total Protein 6.6 g/dL (6.6-8.7) 12/27/23 17:46 Albumin 3.7 g/dL (3.5-5.2) 12/27/23 17:46 Globulin 2.9 g/dL (1.3-4.6) 12/27/23 17:46 Urine Color Yellow (Yellow) 12/27/23 18:38 Urine Appearance Cloudy (CLEAR) A 12/27/23 18:38 Urine pH 6 (5-7) 12/27/23 18:38 Ur Specific Crucible 1.025 (1.005-1.030) 12/27/23 18:38 Urine Protein Neg (Negative) 12/27/23 18:38 Urine Glucose (UA) Norm (Normal) 12/27/23 18:38 Urine Ketones Negative (Negative) 12/27/23 18:38 Urine Blood Neg (Negative) 12/27/23 18:38 Urine Nitrate Negative (Negative) 12/27/23 18:38 Urine Bilirubin Neg (Negative) 12/27/23 18:38 Urine Urobilinogen 1 mg/dL (Negative) H 12/27/23 18:38 Ur Leukocyte Esterase Negative (Negative) 12/27/23 18:38 Urine RBC 0-4 /hpf (0-2) H 12/27/23 18:38 Urine WBC 0-4 /hpf (0-5) H 12/27/23 18:38 Ur Squamous Epith Cells 0-4 /hpf (0-5) H 12/27/23 18:38 Amorphous Sediment 2+ /hpf 12/27/23 18:38 Urine Bacteria 1+ /hpf (NONE) H 12/27/23 18:38 Urine Mucus 1+ /hpf 12/27/23 18:38 All radiology interpretation(s) finalized by discharge Discharge Plan Discharge Patient Disposition: Home Clinical Impression: Fall Qualifiers: Encounter type: initial encounter Qualified Code(s): W19.XXXA - Unspecified fall, initial encounter Head injury Qualifiers: Encounter type: initial encounter Qualified Code(s): S09.90XA - Unspecified injury of head, initial encounter Condition: Stable Prescriptions: No Action lamotrigine 150 mg tablet 150 mg PO BID@08,18 pantoprazole 20 mg tablet,delayed release (DR/EC) 20 mg PO BID@06,18 tamsulosin 0.4 mg capsule 0.4 mg PO DAILY@18 quetiapine [Seroquel] 100 mg tablet 100 mg PO BID@08,20 simvastatin 20 mg tablet 20 mg PO DAILY@18 metoprolol succinate [Toprol XL] 50 mg tablet extended release 24 hr 50 mg PO DAILY@08 acetaminophen [Tylenol] 325 mg Tablet 650 mg PO Q6H PRN (Reason: Pain) guaifenesin [Irma-Tussin] 100 mg/5 mL Liquid 200 mg PO Q6H PRN (Reason: Congestion) potassium chloride 20 mEq tablet,ER particles/crystals 20 meq PO DAILY@08 sertraline 25 mg tablet 25 mg PO DAILY@08 budesonide 0.5 mg/2 mL suspension for nebulization 0.5 mg inhalation BID@08,18 formoterol fumarate [Perforomist] 20 mcg/2 mL solution for nebulization 2 ml INHALATION BID@08,18 albuterol sulfate 90 mcg/actuation HFA aerosol inhaler 2 puff inhalation Q6H PRN (Reason: shortness of breath or wheezing) aspirin 81 mg Tablet,Delayed Release (Dr/Ec) 81 mg PO DAILY Qty: 30 0RF amlodipine 10 mg tablet 10 mg PO DAILY loratadine 10 mg Tablet 10 mg PO DAILY Discharge Orders: Discharge ED (Routine); Ordered 12/27/23 Ordered By: Aram Anaya Referrals: Jr Cardenas MD [Primary Care Provider] - Discharge Diet: Usual diet Discharge Activity: Increase activity as tolerated Patient Instructions: Head Injury (ED) Activity Restrictions/Additional Instructions: Continue with routine care. Follow-up with primary care in 2 to 3 days for recheck. Return to ED for new concerns. Coding Level of Care Code ED Clinical Team Manager for Donna Brock
--- NOTE | 2023-12-27 17:56 | ECG_ITS ---
[facility] Test Date: 2023-12-27 Pat Name: Sherri Mcintyre Department: Room: Gender: Female Ship Wirer: : 1960 Requested By: Aram Vicente Order Number: [id number] Mis MD: Seth Sebastian M.D. Measurements Intervals [place] Rate: 76 P: 31 DC: 155 QRS: -71 QRSD: 134 T: 19 QT: 444 QTc: 500 Interpretive Statements SINUS RHYTHM RIGHT BUNDLE BRANCH BLOCK [120+ ms QRS DURATION, UPRIGHT V1, 40+ ms S IN I/aVL/V4/V5/V6] POSSIBLE ANTERIOR MYOCARDIAL INFARCTION , PROBABLY OLD [30 ms Q WAVE IN V3/V4, OR R < 0.2 mV IN V4] INFERIOR MYOCARDIAL INFARCTION , PROBABLY OLD [40+ ms Q WAVE AND/OR ST/T ABNORMALITY IN II/aVF] Compared to ECG 03/26/2023 12:12:33 Left anterior fascicular block no longer present Myocardial infarct finding still present Electronically Signed On 12-28-2023 17:03:14 CDT by Seth Sebastian M.D. [id number]
[2023-12-27 18:23] VITALS: PULSE 73; O2SAT 97
[2023-12-27 18:27] LABS: Basophils % 0.4 %; Eosinophils # 0.4 10^3/uL (0.0-0.8); Eosinophils % 4.9 %; Hematocrit 44.9 % (36-47); Lymphocytes # 2.5 10^3/uL (0.8-4.8); Lymphocytes % 34.2 %; Mean Corpuscular HGB Conc 32.7 g/dL (30-55); Mean Corpuscular Hemoglobin 29.5 pg (27-33); Mean Corpuscular Volume 90.2 fl (85-98); Mean Platelet Volume 11.4 fL (7.4-10.4); Monocytes # 0.5 10^3/uL (0.2-0.9); Monocytes % 6.1 %; Neutrophils # 3.97 10^3/uL (1.8-7.7); Neutrophils % 54.1 %; Nucleated Red Blood Cells % 0 %; Platelet Count 184 10^3/cmm (157-399); Red Blood Count 4.98 10^6/uL (3.85-5.65); Red Cell Distribution Width 13.8 % (12.1-15.1); White Blood Count 7.34 10^3/uL (3.29-11.43)
[2023-12-27 18:48] LABS: Alanine Aminotransferase 6 U/L (0-33); Albumin Level 3.7 g/dL (3.5-5.2); Alkaline Phosphatase 106 U/L (35-105); Aspartate Amino Transferase 8 U/L (0-32); Blood Urea Nitrogen 10 mg/dL (8-23); Carbon Dioxide 28 mmol/L (22-29); Chloride 107 mmol/L (98-107); Globulin 2.9 g/dL (1.3-4.6); Glucose 87 mg/dL (65-115); Osmolality Calculated 298 mOsm/kg (285-295); Sodium 145 mmol/L (136-145); Total Bilirubin 0.2 mg/dL (0.15-1.2); Total Protein 6.6 g/dL (6.6-8.7)
[2023-12-27 18:52] VITALS: BP 177/115; O2SAT 98
[2023-12-27 18:52] LABS: Add Urine Microscopic? YES; Bilirubin Urine Neg (Negative); Blood Urine Neg (Negative); Glucose Urine UA Norm (Normal); Ketones Urine Negative (Negative); Leukocyte Esterase Urine Negative (Negative); Nitrate Urine Negative (Negative); Protein Urine Neg (Negative); Specific Gravity, Urine 1.025 (1.005-1.030); Urine Appearance Cloudy (CLEAR); Urine Color Yellow (Yellow); Urobilinogen Urine 1 mg/dL (Negative); pH Urine 6 (5-7)
[2023-12-27 18:57] LABS: Add Urine Culture? No; Amorphous Sediment Urine 2+ /hpf; Bacteria Urine 1+ /hpf; Mucus Urine 1+ /hpf; RBC Urine 0-4 /hpf (0-2); Squamous Epithelial Cell Urine 0-4 /hpf (0-5); WBC Urine 0-4 /hpf (0-5)
[2023-12-27 19:00] VITALS: O2SAT 97
== END 2023-12-27 20:19 | disposition home or self-care (01) ==
PROVIDERS: Emergency Provider Nurse Practitioner Family; PCP Internal Medicine
DX: S00.83XA Contusion of other part of head, initial encounter (principal); W19.XXXA Unspecified fall, initial encounter; Y92.129 Unspecified place in nursing home as the place of occurrence of the external cause; J44.9 Chronic obstructive pulmonary disease, unspecified; Z86.73 Personal history of transient ischemic attack (TIA), and cerebral infarction without residual deficits; F01.50 Vascular dementia, unspecified severity, without behavioral disturbance, psychotic disturbance, mood disturbance, and anxiety; I10 Essential (primary) hypertension; E78.5 Hyperlipidemia, unspecified; Z79.82 Long term (current) use of aspirin
CPT/HCPCS: 36415; 70450; 71045; 80053; 81001; 85025; 93005; 99285

== ENCOUNTER 2024-02-04 13:35 | Emergency (ER) | payer MEDICARE, MEDICAID, SELFPAY ==
[2024-02-04] VITALS (7 sets, daily range): BP systolic 150–152; BP diastolic 86–95; PULSE 49–83; RESP 18–24; TEMP 36.3; O2SAT 92–99
--- NOTE | 2024-02-04 13:40 | XRR_ITS ---
PROCEDURE INFORMATION: Exam: XR Chest Exam date and time: 02/04/2024 1:47 PM Age: 63 years old Clinical indication: Cough and dyspnea and shortness of breath; Additional info: Dyspnea/cough TECHNIQUE: Imaging protocol: Radiologic exam of the chest. Views: 1 view. COMPARISON: CR (CHEST, ) 12/27/2023 5:33 PM FINDINGS: Airway: Patent Lungs: Low lung volumes causes crowding of the bronchovascular structures. Lung hyperlucency. No acute interstitial or airspace disease. Calcified right hilar granulomas are stable and of no concern. Pleural spaces: Unremarkable. No pleural effusion. No pneumothorax. Heart/Mediastinum: Cardiomediastinal silhouette is magnified due to technique. Bones/joints: No acute skeletal abnormality or aggressive osseous lesion. XR/XR chest 1V portable [id number] IMPRESSION: Suggested emphysema.
--- NOTE | 2024-02-04 13:40 | ECG_ITS ---
[facility] Test Date: 2024-02-04 Pat Name: Sherri Mcintyre Department: Room: Gender: Female Shot Bagger: : 1960 Requested By: Avinash Umana Order Number: [id number] Mis MD: Seth Sebastian M.D. Measurements Intervals [place] Rate: 85 P: 50 VA: 168 QRS: -68 QRSD: 92 T: 47 QT: 407 QTc: 485 Interpretive Statements SINUS RHYTHM LOW QRS VOLTAGE IN PRECORDIAL LEADS [QRS DEFLECTION < 1.0 mV IN CHEST LEADS] INCOMPLETE RIGHT BUNDLE BRANCH BLOCK [90+ ms QRS DURATION, TERMINAL R IN V1/V2, 40+ ms S IN I/aVL/V4/V5/V6] LEFT ANTERIOR FASCICULAR BLOCK [QRS AXIS <= -45, QR IN I, RS IN II] POSSIBLE ANTERIOR MYOCARDIAL INFARCTION , PROBABLY OLD [30 ms Q WAVE IN V3/V4, OR R < 0.2 mV IN V4] Compared to ECG 12/27/2023 17:56:28 Low QRS voltage now present ST (T wave) deviation now present Myocardial infarct finding still present Electronically Signed On 02-04-2024 18:07:46 CDT by Seth Sebastian M.D. [id number]
--- NOTE | 2024-02-04 14:00 | ED_ITS ---
HPI - Altered Mental Status 2 General: Chief Complaint: Altered Mental Status Stated Complaint: ams, low hr/bp Time Seen by Provider: 02/04/24 13:40 Source: EMS and RN notes reviewed Mode of arrival: EMS History of Present Illness: 63-year-old female presents emergency ro om via EMS from local custodial with altered mental status low blood pressure and bradycardia. EMS gave atropine in the field. Patient is obtunded on arrival here can give a few bits of history no she is where she is at. Normally on 3 L of oxygen daily. MD complaint: altered mental status Associated symptoms: Deny auditory hallucinations, visual hallucinations, delusions, depression, homicidal ideation, racing thoughts or suicidal ideation Review of Systems 2 Psych: Denies: depression, visual hallucinations, auditory hallucinations, suicidal ideation or homicidal ideation PFSH ED 2 PFSH: Medical History Brain aneurysm COPD (chronic obstructive pulmonary disease) CVA (cerebral vascular accident) Dementia, vascular GERD (gastroesophageal reflux disease) HTN (hypertension) Hyperlipidemia Incontinence in female Seizure disorder Vitamin D deficiency Surgical History H/O brain surgery H/O excision of epidermal inclusion cyst History of 2 sections Family History Brother Hodgkins disease Father Stroke Physical Exam 2 HENMT: COMMON NORMALS: normocephalic, atraumatic and hearing grossly normal bilaterally HEAD & SCALP: normocephalic and atraumatic Resp: COMMON NORMALS: normal respiratory effort, No retractions, No use of accessory muscles and clear to auscultation bilaterally AUSCULTATION: clear to auscultation bilaterally Cardio: COMMON NORMALS: regular rate, regular rhythm and No murmurs present (Cardio) RATE: regular rate RHYTHM: regular rhythm GI: COMMON NORMALS: Soft to palpation and No hepatosplenomegaly present A USCULTATION: Yes normoactive bowel sounds PALPATION: Yes Soft to palpation, No Tenderness to palpation present (GI), No Guarding due to palpation present (GI) and Yes No hepatosplenomegaly present Extremity: COMMON NORMALS: normal to inspection, capillary refill normal, no clubbing, cyanosis or edema, no calf tenderness and no pedal edema Psych: THOUGHT CONTENT: No delusions Skin: COMMON NORMALS: no rashes or lesions noted GENERAL SKIN EXAM: no rashes or lesions noted Course 2 Vital Signs: Vital signs: Vital Signs Temperature 97.4 F L 02/04/24 13:37 Pulse Rate 78 02/04/24 17:31 Respiratory Rate 18 02/04/24 20:28 Blood Pressure 152/95 02/04/24 15:23 Pulse Oximetry 92 02/04/24 17:31 Oxygen Delivery Me thod Nasal Cannula 02/04/24 13:37 Oxygen Flow Rate 3 02/04/24 13:37 MDM - Altered Mental Status Medical Decision Making Labs and imaging reviewed. She was bradycardic we will decrease her metoprolol to 25 mg. She has not had any hypotension since arriving here that was noted in the nurses note. She is actually been slightly hypertensive. Since we are decreasing her metoprolol we will add lisinopril 20 mg daily her kidney function potassium are normal. She may need further evaluation on her blood pressure on an ongoing basis when she returns to the custodial. Medical Records I reviewed the patient's medical records. Lab Data I reviewed the patient's lab results. 02/04/24 14:09 02/04/24 14:09 Radiology Impressions Chest X-Ray 02/04/24 13:40 IMPRESSION: Suggested emphysema. Laboratory Results WBC 7.85 10^3/uL (3.29-11.43) 02/04/24 14:09 RBC 5.01 10^6/uL (3.85-5.65) 02/04/24 14:09 Hgb 14.90 g/dL (11.27-16.99) 02/04/24 14:09 Hct 45.7 % (36-47) 02/04/24 14:09 MCV 91.2 fl (85-98) 02/04/24 14:09 MCH 29.7 pg (27-33) 02/04/24 14:09 MCHC 32.6 g/dL (30-55) 02/04/24 14:09 RDW 13.4 % (12.1-15.1) 02/04/24 14:09 Plt Count 173 10^3/cmm (157-399) 02/04/24 14:09 MPV 11.1 fL (7.4-10.4) H 02/04/24 14:09 Neut % (Auto) 80.0 % 02/04/24 14:09 Lymph % (Auto) 16.3 % 02/04/24 14:09 [place] % (Auto) 2.5 % 02/04/24 14:09 Eos % (Auto) 0.5 % 02/04/24 14:09 Baso % (Auto) 0.3 % 02/04/24 14:09 Neut # (Auto) 6.28 10^3/uL (1.8-7.7) 02/04/24 14:09 Lymph # (Auto) 1.3 10^3/uL (0.8-4.8) 02/04/24 14:09 [place] # (Auto) 0.2 10^3/uL (0.2-0.9) 02/04/24 14:09 Eos # (Auto) 0.0 10^3/uL (0.0-0.8) 02/04/24 14:09 Baso # (Auto) 0.0 10^3/uL (0.0-0.1) 02/04/24 14:09 Nucleated RBC % (auto) 0 % 02/04/24 14:09 Nucleated RBCs # 0.0 /100WBC 02/04/24 14:09 Sodium 141 mmol/L (136-145) 02/04/24 14:09 Potassium 4.8 mmol/L (3.5-5.1) 02/04/24 14:09 Chloride 105 mmol/L (98-107) 02/04/24 14:09 Carbon Dioxide 26 mmol/L (22-29) 02/04/24 14:09 Anion Gap 14.8 (5-19) 02/04/24 14:09 BUN 13 mg/dL (8-23) 02/04/24 14:09 Creatinine 0.7 mg/dL (0.5-0.9) 02/04/24 14:09 GFR Calculation 84.5 mL/min (90-130) L 02/04/24 14:09 Glucose 104 mg/dL (65-115) 02/04/24 14:09 Calculated Osmolality 292 mOsm/kg (285-295) 02/04/24 14:09 Lactic Acid 3.6 mmol/L (0.5-2.2) H 02/04/24 14:09 Calcium 9.2 mg/dL (8.5-10.5) 02/04/24 14:09 Total Bilirubin 0.4 mg/dL (0.15-1.2) 02/04/24 14:09 AST 9 U/L (0-32) 02/04/24 14:09 ALT 7 U/L (0-33) 02/04/24 14:09 Alkaline Phosphatase 99 U/L (35-105) 02/04/24 14:09 Troponin T Baseline 15 ng/L (0-10) H 02/04/24 14:09 Troponin T 120 Minute 16.46 ng/L (0-10) H 02/04/24 16:14 Delta Troponin T 1.46 ABS# (0-10) 02/04/24 16:14 Total Protein 6.6 g/dL (6.6-8.7) 02/04/24 14:09 Albumin 3.9 g/dL (3.5-5.2) 02/04/24 14:09 Globulin 2.7 g/dL (1.3-4.6) 02/04/24 14:09 Urine Color Yellow (Yellow) 02/04/24 15:11 Urine Appearance Hazy (CLEAR) A 02/04/24 15:11 Urine pH 7 (5-7) 02/04/24 15:11 Ur Specific [place] 1.015 (1.005-1.030) 02/04/24 15:11 Urine Protein Neg (Negative) 02/04/24 15:11 Urine Glucose (UA) Norm (Normal) 02/04/24 15:11 Urine Ketones Negative (Negative) 02/04/24 15:11 Urine Blood Neg (Negative) 02/04/24 15:11 Urine Nitrate Negative (Negative) 02/04/24 15:11 Urine Bilirubin Neg (Negative) 02/04/24 15:11 Urine Urobilinogen 1 mg/dL (Negative) H 02/04/24 15:11 Ur Leukocyte Esterase Negative (Negative) 02/04/24 15:11 Urine RBC 0-4 /hpf (0-2) H 02/04/24 15:11 Urine WBC 0-4 /hpf (0-5) H 02/04/24 15:11 Ur Squamous Epith Cells 0-4 /hpf (0-5) H 02/04/24 15:11 Calcium Oxalate Crystal Rare /hpf 02/04/24 15:11 Amorphous Sediment Not Reportable 02/04/24 15:11 Urine Bacteria 3+ /hpf (NONE) H 02/04/24 15:11 Urine Mucus Trace /hpf 02/04/24 15:11 All radiology interpretation(s) finalized by discharge Discharge Plan Discharge Patient Disposition: Home Clinical Impression: Dementia, vascular, Bradycardia Condition: Stable Prescriptions: New lisinopril 10 mg tablet 10 mg PO DAILY Qty: 30 0RF Changed Toprol XL 50 mg tablet extended release 24 hr 25 mg PO DAILY@08 Qty: 15 0RF No Action lamotrigine 150 mg tablet 150 mg PO BID@08,18 pantoprazole 20 mg tablet,delayed release (DR/EC) 20 mg PO BID@06,18 tamsulosin 0.4 mg capsule 0.4 mg PO DAILY@18 quetiapine [Seroquel] 100 mg tablet 100 mg PO BID@08,20 simvastatin 20 mg tablet 20 mg PO DAILY@18 acetaminophen [Tylenol] 325 mg Tablet 650 mg PO Q6H PRN (Reason: Pain) guaifenesin [Irma-Tussin] 100 mg/5 mL Liquid 200 mg PO Q6H PRN (Reason: Congestion) potassium chloride 20 mEq tablet,ER particles/crystals 20 meq PO DAILY@08 sertraline 25 mg tablet 25 mg PO DAILY@08 budesonide 0.5 mg/2 mL suspension for nebulization 0.5 mg inhalation BID@08,18 formoterol fumarate [Perforomist] 20 mcg/2 mL solution for nebulization 2 ml INHALATION BID@08,18 albuterol sulfate 90 mcg/actuation HFA aerosol inhaler 2 puff inhalation Q6H PRN (Reason: shortness of breath or wheezing) aspirin 81 mg Tablet,Delayed Release (Dr/Ec) 81 mg PO DAILY Qty: 30 0RF amlodipine 10 mg tablet 10 mg PO DAILY loratadine 10 mg Tablet 10 mg PO DAILY Discharge Orders: Discharge ED (Routine); Ordered 02/04/24 Ordered By: Avinash Oreilly Referrals: Jr Cardenas MD [Primary Care Provider] - Discharge Diet: Usual diet Discharge Activity: Resume usual activity Patient Instructions: Altered Mental Status (ED), Opioid Safety, Pain Management Activity Restrictions/Additional Instructions: Thank you for choosing [facility] for your healthcare needs today. Please realize this is an emergency room and that we are providing you with a medical screening exam and this may not be complete and all inclusive of all the testing and or work up that you may need to determine your ailment or severity of your illness. It is very important that you follow up as instructed or that you return to the Emergency Department should you have concerns or if your condition changes or worsens in any way. You are seen today with complaints of low blood pressure and low heart rate. Your heart rate was low which her blood pressure was sustained while you are in the emergency room. Recommend the following adjustments to your medication regimen decrease your Toprol-XL to 25 once daily. Add lisinopril 10 mg once daily. Start both of these tomorrow. Coding Level of Care Code ED Mcat Tutor for Donna Brock
[2024-02-04 14:19] LABS: Basophils % 0.3 %; Eosinophils % 0.5 %; Hematocrit 45.7 % (36-47); Lymphocytes # 1.3 10^3/uL (0.8-4.8); Lymphocytes % 16.3 %; Mean Corpuscular HGB Conc 32.6 g/dL (30-55); Mean Corpuscular Hemoglobin 29.7 pg (27-33); Mean Corpuscular Volume 91.2 fl (85-98); Mean Platelet Volume 11.1 fL (7.4-10.4); Monocytes # 0.2 10^3/uL (0.2-0.9); Monocytes % 2.5 %; Neutrophils # 6.28 10^3/uL (1.8-7.7); Nucleated Red Blood Cells % 0 %; Platelet Count 173 10^3/cmm (157-399); Red Blood Count 5.01 10^6/uL (3.85-5.65); Red Cell Distribution Width 13.4 % (12.1-15.1); White Blood Count 7.85 10^3/uL (3.29-11.43)
[2024-02-04 14:38] LABS: Troponin(5th) Baseline 15 ng/L (0-10)
[2024-02-04 14:39] LABS: Alanine Aminotransferase 7 U/L (0-33); Albumin Level 3.9 g/dL (3.5-5.2); Alkaline Phosphatase 99 U/L (35-105); Aspartate Amino Transferase 9 U/L (0-32); Blood Urea Nitrogen 13 mg/dL (8-23); Calcium 9.2 mg/dL (8.5-10.5); Carbon Dioxide 26 mmol/L (22-29); Chloride 105 mmol/L (98-107); Globulin 2.7 g/dL (1.3-4.6); Glomerular Filtration Rate 84.5 mL/min (90-130); Glucose 104 mg/dL (65-115); Osmolality Calculated 292 mOsm/kg (285-295); Sodium 141 mmol/L (136-145); Total Bilirubin 0.4 mg/dL (0.15-1.2); Total Protein 6.6 g/dL (6.6-8.7)
[2024-02-04 14:40] LABS: Lactic Sepsis W/Reflex 3.6 mmol/L (0.5-2.2)
[2024-02-04 14:42] LABS: Anion Gap 14.8 (5-19); Potassium 4.8 mmol/L (3.5-5.1)
[2024-02-04 15:41] LABS: Urine Appearance Hazy (CLEAR); Urine Color Yellow (Yellow); pH Urine 7 (5-7)
[2024-02-04 15:42] LABS: Add Urine Microscopic? YES; Bilirubin Urine Neg (Negative); Blood Urine Neg (Negative); Glucose Urine UA Norm (Normal); Ketones Urine Negative (Negative); Leukocyte Esterase Urine Negative (Negative); Nitrate Urine Negative (Negative); Protein Urine Neg (Negative); Specific Gravity, Urine 1.015 (1.005-1.030); Urobilinogen Urine 1 mg/dL (Negative)
[2024-02-04 15:44] LABS: RBC Urine 0-4 /hpf (0-2); WBC Urine 0-4 /hpf (0-5)
[2024-02-04 15:45] LABS: Add Urine Culture? Yes; Bacteria Urine 3+ /hpf; Calcium Oxalate Crystals Urine RARE /hpf; Mucus Urine TRACE /hpf; Squamous Epithelial Cell Urine 0-4 /hpf (0-5)
--- NOTE | 2024-02-04 15:55 | ECG_ITS ---
[facility] Test Date: 2024-02-04 Pat Name: Sherri Mcintyre Department: Room: Gender: Female Skin Diver: : 1960 Requested By: Avinash Umana Order Number: [id number] Mis MD: Seth Sebastian M.D. Measurements Intervals [place] Rate: 69 P: 58 MO: 162 QRS: -68 QRSD: 97 T: 0 QT: 197 QTc: 211 Interpretive Statements SINUS RHYTHM LOW QRS VOLTAGE IN PRECORDIAL LEADS [QRS DEFLECTION < 1.0 mV IN CHEST LEADS] INCOMPLETE RIGHT BUNDLE BRANCH BLOCK [90+ ms QRS DURATION, TERMINAL R IN V1/V2, 40+ ms S IN I/aVL/V4/V5/V6] LEFT ANTERIOR FASCICULAR BLOCK [QRS AXIS <= -45, QR IN I, RS IN II] POSSIBLE ANTERIOR MYOCARDIAL INFARCTION , PROBABLY OLD [30 ms Q WAVE IN V3/V4, OR R < 0.2 mV IN V4] TYPE 3 BRUGADA PATTERN (NON-DIAGNOSTIC) [COVED/SADDLEBACK ST ELEVATION > 0.1mV IN 2 OF V1-3] Compared to ECG 02/04/2024 13:41:47 No significant changes Electronically Signed On 02-04-2024 18:09:36 CDT by Seth Sebastian M.D. [email or web address]
[2024-02-04 16:02] LABS: Reflex Lactate Order REFLEX LACTIC ORDERD
[2024-02-04 16:42] LABS: Troponin 5 2HR 16.46 ng/L (0-10); Troponin 5 2HR Delta 1.46 ABS# (0-10)
== END 2024-02-04 20:30 | disposition home or self-care (01) ==
PROVIDERS: Emergency Provider Family Medicine; PCP Internal Medicine
DX: F01.50 Vascular dementia, unspecified severity, without behavioral disturbance, psychotic disturbance, mood disturbance, and anxiety (principal); R00.1 Bradycardia, unspecified
CPT/HCPCS: 36415; 71045; 80053; 81001; 83605; 84484; 85025; 87040; 87086; 93005; 99285

== ENCOUNTER 2024-05-09 11:27 | Emergency (ER) | payer MEDICARE, MEDICAID, SELFPAY ==
[2024-05-09 11:31] VITALS: BP 148/72; PULSE 74; RESP 18; TEMP 36.6; O2SAT 94; BMI 29.2
--- NOTE | 2024-05-09 11:32 | ED_ITS ---
HPI - Fall 2 General: Chief Complaint: Fall Stated Complaint: fall, sob, back pain Time Seen by Provider: 05/09/24 11:29 History of Present Illness: 64-year-old female with a history of cer ebrovascular accident with right-sided weakness, vascular dementia, depression, hypertension, COPD, seizure disorder, GERD, hyperlipidemia and anxiety who presents to the emergency room from [facility] after she fell forward out of her wheelchair. She is complaining of mid back pain. She is also been complaining of shortness of breath. She says it hurts in her back when she breathes. EMS reports that her oxygen saturations were in the low 80s when they arrived. They placed her on oxygen and gave her breathing treatment and she has improved some. She is not normally on oxygen. No known fevers. No vomiting. She currently has no abdominal pain. No obvious injuries. Related Data Home Medications Medication Instructions Recorded Confirmed lamotrigine 150 mg tablet 150 mg PO BID@08,12/30/19 02/04/24 pantoprazole 20 mg tablet,delayed 20 mg PO BID@,12/30/19 02/04/24 release quetiapine 100 mg tablet (Seroquel) 100 mg PO BID@08,20 12/30/19 02/04/24 simvastatin 20 mg tablet 20 mg PO DAILY@12/30/19 02/04/24 tamsulosin 0.4 mg capsule 0.4 mg PO DAILY@18 12/30/19 02/04/24 acetaminophen 325 mg tablet 650 mg PO Q6H PRN Pain 03/12/23 02/04/24 (Tylenol) albuterol sulfate 90 mcg/actuation 2 puff inhalation Q6H PRN 03/12/23 02/04/24 aerosol inhaler shortness of breath or wheezing budesonide 0.5 mg/2 mL suspension 0.5 mg inhalation BID@,03/12/23 02/04/24 for nebulization formoterol fumarate 20 mcg/2 mL 2 ml inhalation BID@,03/12/23 02/04/24 solution for nebulization (Perforomist) guaifenesin 100 mg/5 mL oral 200 mg PO Q6H PRN Congestion 03/12/23 02/04/24 liquid (Irma-Tussin) potassium chloride 20 mEq 20 meq PO DAILY@08 06/26/23 05/20/24 tablet,extended release(part/cryst) sertraline 25 mg tablet 25 mg PO DAILY@03/12/23 02/04/24 amlodipine 10 mg tablet 10 mg PO DAILY 03/26/23 02/04/24 loratadine 10 mg tablet 10 mg PO DAILY 03/26/23 02/04/24 Previous Rx's Medication Instructions Recorded aspirin 81 mg tablet,delayed 81 mg PO DAILY #30 tabs 03/14/23 release lisinopril 10 mg tablet 10 mg PO DAILY #30 tabs 02/04/24 metoprolol succinate 50 mg 25 mg (1/2 x 50 mg) PO DAILY@02/04/24 tablet,extended release 24 hr #15 tabs (Toprol XL) Allergies Allergy/AdvReac Type Severity Reaction Status Date / Time Penicillins Allergy ALGY-Rash Verified 02/04/24 13:50 Review of Systems 2 Narrative: Constitutional symptoms: Negative except as documented in HPI. Skin symptoms: Negative except as documented in HPI. Eye symptoms: Negative except as documented in HPI. ENMT symptoms: Negative except as documented in HPI. Respiratory symptoms: Negative except as documented in HPI. Cardiovascular symptoms: Negative except as documented in HPI. Gastrointestinal symptoms: Negative except as documented in HPI. Genitourinary symptoms: Negative except as documented in HPI. Musculoskeletal symptoms: Negative except as documented in HPI. Neurologic symptoms: Negative except as documented in HPI. Psychiatric symptoms: Negative except as documented in HPI. Endocrine symptoms: Negative except as documented in HPI. PFSH ED 2 PFSH: Medical History Brain aneurysm COPD (chronic obstructive pulmonary disease) CVA (cerebral vascular accident) Dementia, vascular GERD (gastroesophageal reflux disease) HTN (hypertension) Hyperlipidemia Incontinence in female Seizure disorder Vitamin D deficiency Surgical History H/O brain surgery H/O excision of epidermal inclusion cyst History of 2 sections Family History Brother Hodgkins disease Father Stroke Physical Exam 2 Narrative: EXAM NARRATIVE: General: Alert, no acute distress. Skin: Warm, dry. Head: Normocephalic, atraumatic. Neck: Supple, trachea midline. Eye: Extraocular movements are intact. Ears, nose, mouth and throat: Tacky oral mucosa Cardiovascular: Regular, Normal peripheral perfusion. Respiratory: Mild scattered wheeze, respirations are non-labored, breath sounds are equal, Symmetrical chest wall expansion. Gastrointestinal: Soft, Nontender, Non distended Musculoskeletal: Normal ROM, no deformity. Patient has some thoracic paraspinal back pain no bony tenderness or step-offs Neurological: Alert and oriented, patient has right-sided weakness, some confusion at times but answers most questions appropriately. Psychiatric: Cooperative Course 2 Vital Signs: Vital signs: Vital Signs Temperature 97.9 F 05/09/24 11:31 Pulse Rate 74 05/09/24 11:31 Respiratory Rate 18 05/09/24 11:31 Blood Pressure 148/72 05/09/24 11:31 Pulse Oximetry 94 05/09/24 11:31 Oxygen Delivery Me thod Room Air 05/09/24 11:31 MDM - Fall Medical Decision Making Medical decision making: Differential diagnosis including but not limited to and based on the above HPI, review of systems and physical exam: Patient with a fall and back and chest pain so CT was ordered of the chest. Also hit her head. So CT of the head is ordered. She is reporting shortness of breath so basic lab work is being done as well. Likely COPD exacerbation. Rule out intracranial hemorrhage and skull fractures. Rule out vertebral fractures and rib fractures as well as pneumothorax or hemothorax. Orders placed to evaluate differential diagnosis based on the above differential, HPI and physical exam EKG: Time 1146. Rate 72. Normal sinus rhythm, No ST-T changes, no ectopy, right bundle branch block, This was reviewed and interpreted by myself the ER physician at 11:48 AM. Lab Review: Laboratory results were reviewed and interpreted by myself the emergency room physician. Lab work is unremarkable. No leukocytosis. No anemia. No renal failure. CT head: Large old area of encephalomalacia on the left. No acute intracranial process. no intracranial hemorrhage, no evidence of infarct. no evidence of acute fracture.This was reviewed and interpreted by myself the ER physician. CT of the cervical spine: No fracture. Good alignment. No step-offs. This was reviewed and interpreted by myself the emergency room physician. I also reviewed the radiologist report. CT of the chest without contrast: No pneumothorax or pulmonary contusions. No new fractures. No rib fractures. This was reviewed and interpreted by myself the emergency room physician. I also reviewed the radiology report. There is a chronic unchanged L1 compression fracture. I reviewed the patient's medical record. Reexamination: Patient remained stable. Chronic right-sided hemiplegia. No increased work of breathing. Not requiring oxygen. Assessment and plan: Fall Head injury Thoracic back injury COPD with acute exacerbation ?Patient has received 125 mg IV Solu-Medrol, and a total of 3 updrafts. 1 was with ambulance. - Discharged home - Discussed findings and plan with patient. Answered any questions. - All laboratory values were reviewed and interpreted personally by myself, the ER physician - All imaging was reviewed and interpreted personally by myself, the ER physician. - Evaluation and treatment of this problem were appropriate in the emergency setting Lab Data 05/09/24 12:00 05/09/24 12:00 Radiology Impressions Cervical Spine CT 05/09/24 11:38 IMPRESSION: No acute cervical spine fracture. Chest CT 05/09/24 11:38 IMPRESSION: 1. No pneumothorax or pulmonary contusion. 2. Mild atherosclerosis aorta. 3. Chronic L1 vertebral plana compression fracture. 4. No new fractures are identified. Head CT 05/09/24 11:38 IMPRESSION: 1. No acute intracranial hemorrhage or edema. 2. Large chronic area of encephalomalacia with volume loss LEFT frontal temporal region. Stable. 3. Advanced small vessel ischemic disease. 4. Prior aneurysm clips are in the region of the LEFT MCA and anterior communicating artery. Laboratory Results WBC 6.64 10^3/uL (3.29-11.43) 05/09/24 12:00 RBC 4.92 10^6/uL (3.85-5.65) 05/09/24 12:00 Hgb 14.80 g/dL (11.27-16.99) 05/09/24 12:00 Hct 44.7 % (36-47) 05/09/24 12:00 MCV 90.9 fl (85-98) 05/09/24 12:00 MCH 30.1 pg (27-33) 05/09/24 12:00 MCHC 33.1 g/dL (30-55) 05/09/24 12:00 RDW 13.2 % (12.1-15.1) 05/09/24 12:00 Plt Count 190 10^3/cmm (157-399) 05/09/24 12:00 MPV 10.5 fL (7.4-10.4) H 05/09/24 12:00 Neut % (Auto) 56.2 % 05/09/24 12:00 Lymph % (Auto) 34.2 % 05/09/24 12:00 [place] % (Auto) 6.0 % 05/09/24 12:00 Eos % (Auto) 2.6 % 05/09/24 12:00 Baso % (Auto) 0.5 % 05/09/24 12:00 Neut # (Auto) 3.74 10^3/uL (1.8-7.7) 05/09/24 12:00 Lymph # (Auto) 2.3 10^3/uL (0.8-4.8) 05/09/24 12:00 [place] # (Auto) 0.4 10^3/uL (0.2-0.9) 05/09/24 12:00 Eos # (Auto) 0.2 10^3/uL (0.0-0.8) 05/09/24 12:00 Baso # (Auto) 0.0 10^3/uL (0.0-0.1) 05/09/24 12:00 Nucleated RBC % (auto) 0 % 05/09/24 12:00 Nucleated RBCs # 0.0 /100WBC 05/09/24 12:00 Specimen Type Arterial 05/09/24 11:45 Sample Site Brachial, left 05/09/24 11:45 ABG pH 7.42 (7.35-7.45) 05/09/24 11:45 ABG pCO2 45.5 mmHg (35-45) H 05/09/24 11:45 ABG pO2 56.3 mmHg (80.0-100.0) L 05/09/24 11:45 ABG PO2/FiO2 Ratio 268 05/09/24 11:45 ABG HCO3 29.5 mmol/L (22-26) H 05/09/24 11:45 ABG O2 Saturation 90.9 05/09/24 11:45 ABG Base Excess 4.2 mmol/L (-2.0-2.0) H 05/09/24 11:45 Jose Test N/a 05/09/24 11:45 A-a O2 Gradient 5.0 mmHg (5-10) 05/09/24 11:45 Hematocrit 45.7 % (37-47) 05/09/24 11:45 Hgb O2 Saturation 89.2 % (95-100) L 05/09/24 11:45 Carboxyhemoglobin 0.8 %THgb (0.4-20.1) 05/09/24 11:45 Methemoglobin 1.0 % (0.4-1.5) 05/09/24 11:45 Total Hemoglobin 14.9 g/dL (12-16) 05/09/24 11:45 Sodium 146.0 mmol/L (131-143) H 05/09/24 11:45 Potassium 3.9 mmol/L (3.5-5.0) 05/09/24 11:45 Glucose 101.0 mg/dL (70-115) 05/09/24 11:45 Ionized Calcium 1.2 mmol/L (1.1-1.4) 05/09/24 11:45 O2 Delivery Device Room air 05/09/24 11:45 FiO2 21.0 % 05/09/24 11:45 Corporation Lawyer ID glc 05/09/24 11:45 Sodium 143 mmol/L (136-145) 05/09/24 12:00 Potassium 4.3 mmol/L (3.5-5.1) 05/09/24 12:00 Chloride 104 mmol/L (98-107) 05/09/24 12:00 Carbon Dioxide 28 mmol/L (22-29) 05/09/24 12:00 Anion Gap 15.3 (5-19) 05/09/24 12:00 BUN 21 mg/dL (8-23) 05/09/24 12:00 Creatinine 0.8 mg/dL (0.5-0.9) 05/09/24 12:00 GFR Calculation 72.2 mL/min (90-130) L 05/09/24 12:00 Glucose 101 mg/dL (65-115) 05/09/24 12:00 Calculated Osmolality 299 mOsm/kg (285-295) H 05/09/24 12:00 Lactic Acid 1.5 mmol/L (0.5-2.2) 05/09/24 12:00 Calcium 9.2 mg/dL (8.5-10.5) 05/09/24 12:00 Total Bilirubin 0.4 mg/dL (0.15-1.2) 05/09/24 12:00 AST 12 U/L (0-32) 05/09/24 12:00 ALT 12 U/L (0-33) 05/09/24 12:00 Alkaline Phosphatase 111 U/L (35-105) H 05/09/24 12:00 Troponin T Baseline 43 ng/L (0-10) H 05/09/24 12:00 C-Reactive Protein 4.2 mg/L (0.0-4.9) 05/09/24 12:00 NT-Pro-B Natriuret Pep 77 pg/mL (0-125) 05/09/24 12:00 Total Protein 6.9 g/dL (6.6-8.7) 05/09/24 12:00 Albumin 4.2 g/dL (3.5-5.2) 05/09/24 12:00 Globulin 2.7 g/dL (1.3-4.6) 05/09/24 12:00 All radiology interpretation(s) finalized by discharge Discharge Plan Discharge Clinical Impression: Fall, Head injury, Strain of thoracic back region, COPD with acute exacerbation, History of CVA in adulthood, Hemiplegia affecting right dominant side Condition: Stable Prescriptions: New azithromycin [Zithromax Z-Sameer] 250 mg tablet See Rx Instructions .ROUTE .COMPLEX Qty: 6 0RF Rx Instructions: For 250 mg dose pack: take 500 mg today (day 1), then 250 mg for 4 days (days 2-5) prednisone 20 mg tablet 60 mg PO DAILY 5 Days Qty: 15 0RF No Action lamotrigine 150 mg tablet 150 mg PO BID@08,18 pantoprazole 20 mg tablet,delayed release (DR/EC) 20 mg PO BID@06,18 tamsulosin 0.4 mg capsule 0.4 mg PO DAILY@18 quetiapine [Seroquel] 100 mg tablet 100 mg PO BID@08,20 simvastatin 20 mg tablet 20 mg PO DAILY@18 Toprol XL 50 mg tablet extended release 24 hr 25 mg PO DAILY@08 Qty: 15 0RF lisinopril 10 mg tablet 10 mg PO DAILY Qty: 30 0RF acetaminophen [Tylenol] 325 mg Tablet 650 mg PO Q6H PRN (Reason: Pain) guaifenesin [Irma-Tussin] 100 mg/5 mL Liquid 200 mg PO Q6H PRN (Reason: Congestion) potassium chloride 20 mEq tablet,ER particles/crystals 20 meq PO DAILY@08 sertraline 25 mg tablet 25 mg PO DAILY@08 budesonide 0.5 mg/2 mL suspension for nebulization 0.5 mg inhalation BID@08,18 formoterol fumarate [Perforomist] 20 mcg/2 mL solution for nebulization 2 ml INHALATION BID@08,18 albuterol sulfate 90 mcg/actuation HFA aerosol inhaler 2 puff inhalation Q6H PRN (Reason: shortness of breath or wheezing) aspirin 81 mg Tablet,Delayed Release (Dr/Ec) 81 mg PO DAILY Qty: 30 0RF amlodipine 10 mg tablet 10 mg PO DAILY loratadine 10 mg Tablet 10 mg PO DAILY Referrals: Jr Cardenas MD [Primary Care Provider] - Discharge Diet: Usual diet Discharge Activity: Increase activity as tolerated Patient Instructions: Fall Prevention for Older Adults (ED), COPD (Chronic Obstructive Pulmonary Disease) (ED) Activity Restrictions/Additional Instructions: Thank you for choosing [facility] for your healthcare needs today. Please realize this is an emergency room and that we are providing you with a medical screening exam and this may not be complete and all inclusive of all the testing and or work up that you may need to determine your ailment or severity of your illness. You have been screened and evaluated and felt safe for discharge. Health conditions do change or evolve sometimes and as such it is important that you follow up with your Primary Doctor to be re checked, 3-5 days is a general good time frame for follow up. You are always welcome to return to the ED for re assessment if your symptoms are worsening or you have new concerns Coding Level of Care Code ED Army Ranger for Donna Brock
--- NOTE | 2024-05-09 11:38 | CT_ITS ---
WS: [id number] CT HEAD NONCONTRAST HISTORY: fall, head injury TECHNIQUE: Contiguous axial imaging performed through the brain in 3.0 mm imaging. Bone and soft tiss ue windows. Sagittal and coronal reformats reviewed. All CT scans at [facility] use at least one of these dose optimization techniques: automated exposure control; mA and/or kV adjustment per pa tient size (includes targeted exams where dose is matched to clinical indication); or iterative recon struction. DLP: 2117.88 mGy.cm COMPARISON: 12/27/2023 No acute intracranial hemorrhage, midline shift or mass effect. Moderate atrophy and severe small vessel ischemic disease. Multiple lacunar infarcts centrally. Large prior infarct with encephalomalacia LEFT frontal parietal lobes. Additional surgical clips are noted within the area of encephalomalacia. Ventricles: Marked ex vacuo dilatation anterior horn of the LEFT lateral ventricle. No inferior displacement of the cerebellar tonsils. Paranasal sinuses: As visualized are clear. Mastoid air cells: Well pneumatized. Calvarium and scalp: No acute fracture. LEFT frontal craniotomy. Aneurysm clips are identified in the region of the anterior communicating and LEFT MCA. CT/CT head wo con* [id number] IMPRESSION: 1. No acute intracranial hemorrhage or edema. 2. Large chronic area of encephalomalacia with volume loss LEFT frontal tempor al region. Stable. 3. Advanced small vessel ischemic disease. 4. Prior aneurysm clips are in the region of the LEFT MCA and anterior communi cating artery.
--- NOTE | 2024-05-09 11:38 | CT_ITS ---
WS: [id number] CT chest wo con [id number] HISTORY: Traumatic chest pain TECHNIQUE: Axial imaging performed through the thorax. Coronal and sagittal reformats are submitted. All CT scans at [facility] use at least one of these dose optimization techniques: automated exposure control; mA and/or kV adjustment per patient size (includes targeted exams where dose is mat ched to clinical indication); or iterative reconstruction. CONTRAST: None DLP: 386.45 mGy.cm COMPARISON: None available. Lungs and central airway: Mild motion and breathing artifact. No pneumothorax. No pulmonary contusion . There are a few granulomata. Pleura: Normal. No pleural effusion. Heart and pericardium: Normal size heart with no pericardial effusion. Mediastinum and dayami: No mediastinal or hilar lymph nodes. Vessels: Mild atherosclerosis aorta. Normal size pulmonary artery. Chest wall and lower neck: No soft tissue masses. Upper abdomen: Cholelithiasis. No adrenal mass. Osseous structures: L1 vertebral plana compression fracture with minimal retropulsion. Fracture was a cute on 03/17/2018. Increase in thoracic kyphosis. No rib fractures are identified. No new acute spine fracture. CT/CT chest wo con [id number] IMPRESSION: 1. No pneumothorax or pulmonary contusion. 2. Mild atherosclerosis aorta. 3. Chronic L1 vertebral plana compression fracture. 4. No new fractures are identified.
--- NOTE | 2024-05-09 11:38 | CT_ITS ---
WS: [id number] CT CERVICAL SPINE HISTORY: fall, neck pain TECHNIQUE: Contiguous 2.0 mm axial imaging performed through the entire cervical spine. Sagittal and coronal reformats also performed. All CT scans at [facility] use at least one of these dose o ptimization techniques: automated exposure control; mA and/or kV adjustment per patient size (include s targeted exams where dose is matched to clinical indication); or iterative reconstruction. DLP: 2117.88 mGy.cm COMPARISON: 12/18/2022 Posterior alignment is normal. Mild concave deformity superior endplate of T1 and T2 identified. No a cute fracture. Facet joints are normally aligned. Craniocervical junction is normal. Lateral masses o f C1 and C2 are aligned. Odontoid intact. C2-C3: Normal. C3-C4: Normal. C4-C5: Normal. C5-C6: Very mild foraminal narrowing and facet arthritis. C6-C7: Normal. C7-T1: Normal. Soft tissues are normal. Lung apices are clear. CT/CT cervical spin wo con* [id number] IMPRESSION: No acute cervical spine fracture.
--- NOTE | 2024-05-09 11:39 | ECG_ITS ---
[facility] Test Date: 2024-05-09 Pat Name: Sherri Mcintyre Department: Room: Gender: Female Manager Outreach: : 1960 Requested By: Christiana Umana Order Number: [id number] Mis MD: Seth Sebastian M.D. Measurements Intervals [place] Rate: 72 P: 56 AL: 158 QRS: -74 QRSD: 130 T: 64 QT: 426 QTc: 469 Interpretive Statements SINUS RHYTHM RIGHT BUNDLE BRANCH BLOCK [120+ ms QRS DURATION, UPRIGHT V1, 40+ ms S IN I/aVL/V4/V5/V6] LEFT ANTERIOR FASCICULAR BLOCK [QRS AXIS <= -45, QR IN I, RS IN II] POSSIBLE ANTERIOR MYOCARDIAL INFARCTION , PROBABLY OLD [30 ms Q WAVE IN V3/V4, OR R < 0.2 mV IN V4] Compared to ECG 02/04/2024 15:55:32 Right bundle-branch block now present Incomplete right bundle-branch block no longer present ST (T wave) deviation no longer present Myocardial infarct finding still present Electronically Signed On 05-09-2024 13:02:02 CDT by Seth Sebastian M.D. [id number]
[2024-05-09 11:59] LABS: ABG PCO2 45.5 mmHg (35-45); ABG PH Result 7.42 (7.35-7.45); Arterial Blood Gas Hematocrit 45.7 % (37-47); Base Excess ABG 4.2 mmol/L (-2.0-2.0); Blood Gas Operator Identificat glc; Blood Gas Sample Site Brachial, left; Blood Gas Sample Type Arterial; Carboxyhemoglobin 0.8 %THgb (0.4-20.1); HCO3 ABG 29.5 mmol/L (22-26); HGB O2 Sat 89.2 % (95-100); Ionized Calcium Level - ABG 1.2 mmol/L (1.1-1.4); Oxygen Device ROOM AIR; Oxygen Saturation ABG 90.9; PO2 ABG 56.3 mmHg (80.0-100.0); PO2 FiO2 Ratio Arterial Blood 268; Potassium Level - ABG 3.9 mmol/L (3.5-5.0); Total Hemoglobin 14.9 g/dL (12-16)
[2024-05-09 12:09] LABS: Basophils % 0.5 %; Eosinophils # 0.2 10^3/uL (0.0-0.8); Eosinophils % 2.6 %; Hematocrit 44.7 % (36-47); Lymphocytes # 2.3 10^3/uL (0.8-4.8); Lymphocytes % 34.2 %; Mean Corpuscular HGB Conc 33.1 g/dL (30-55); Mean Corpuscular Hemoglobin 30.1 pg (27-33); Mean Corpuscular Volume 90.9 fl (85-98); Mean Platelet Volume 10.5 fL (7.4-10.4); Monocytes # 0.4 10^3/uL (0.2-0.9); Neutrophils # 3.74 10^3/uL (1.8-7.7); Neutrophils % 56.2 %; Nucleated Red Blood Cells % 0 %; Platelet Count 190 10^3/cmm (157-399); Red Blood Count 4.92 10^6/uL (3.85-5.65); Red Cell Distribution Width 13.2 % (12.1-15.1); White Blood Count 6.64 10^3/uL (3.29-11.43)
[2024-05-09 12:32] LABS: Troponin(5th) Baseline 43 ng/L (0-10)
[2024-05-09 12:33] LABS: Lactic Sepsis W/Reflex 1.5 mmol/L (0.5-2.2)
[2024-05-09 12:42] LABS: Alanine Aminotransferase 12 U/L (0-33); Albumin Level 4.2 g/dL (3.5-5.2); Alkaline Phosphatase 111 U/L (35-105); Anion Gap 15.3 (5-19); Aspartate Amino Transferase 12 U/L (0-32); Blood Urea Nitrogen 21 mg/dL (8-23); C Reactive Protein 4.2 mg/L (0.0-4.9); Calcium 9.2 mg/dL (8.5-10.5); Carbon Dioxide 28 mmol/L (22-29); Chloride 104 mmol/L (98-107); Creatinine Clr Calc Pharmacy 71.4014; Globulin 2.7 g/dL (1.3-4.6); Glomerular Filtration Rate 72.2 mL/min (90-130); Glucose 101 mg/dL (65-115); NT Pro B Type Natriuretic Pept 77 pg/mL (0-125); Osmolality Calculated 299 mOsm/kg (285-295); Potassium 4.3 mmol/L (3.5-5.1); Sodium 143 mmol/L (136-145); Total Bilirubin 0.4 mg/dL (0.15-1.2); Total Protein 6.9 g/dL (6.6-8.7)
[2024-05-09] MEDS: methylPREDNISolone sod succ 125 mg/2 mL INJ IVP (13:16)
[2024-05-09 13:34] VITALS: BP 124/89; PULSE 76; RESP 16; O2SAT 97
[2024-05-09] MEDS: ipratropium-albuterol 3 mL Neb INHALATION (13:34)
[2024-05-09] MEDS: albuterol 2.5 mg/3 mL Neb INHALATION (13:34)
[2024-05-09 13:38] VITALS: PULSE 73; RESP 20; O2SAT 94
[2024-05-09 14:58] VITALS: BP 144/99; PULSE 93; RESP 16; O2SAT 93
[2024-05-09 15:50] VITALS: BP 144/99; PULSE 93; RESP 16; TEMP 36.6; O2SAT 93
== END 2024-05-09 15:57 | disposition home or self-care (01) ==
PROVIDERS: Emergency Provider Emergency Medicine; PCP Internal Medicine
DX: S09.90XA Unspecified injury of head, initial encounter (principal); S29.012A Strain of muscle and tendon of back wall of thorax, initial encounter; J44.1 Chronic obstructive pulmonary disease with (acute) exacerbation; I69.951 Hemiplegia and hemiparesis following unspecified cerebrovascular disease affecting right dominant side; Z79.82 Long term (current) use of aspirin; I45.10 Unspecified right bundle-branch block; F01.50 Vascular dementia, unspecified severity, without behavioral disturbance, psychotic disturbance, mood disturbance, and anxiety; I10 Essential (primary) hypertension; E78.5 Hyperlipidemia, unspecified; W05.0XXA Fall from non-moving wheelchair, initial encounter; Y92.129 Unspecified place in nursing home as the place of occurrence of the external cause
CPT/HCPCS: 36415; 36600; 70450; 71250; 72125; 80051; 80053; 82330; 82805; 83605; 83880; 84484; 85025; 86140; 87040; 93005; 94640; 96374; 99285; J2919; J7613

== ENCOUNTER 2024-06-17 13:27 | Emergency (ER) | payer MEDICARE, MEDICAID, SELFPAY ==
[2024-06-17] VITALS (10 sets, daily range): BP systolic 137–197; BP diastolic 92–121; PULSE 60–115; RESP 18–27; TEMP 36.3; O2SAT 91–96; BMI 24.0
--- NOTE | 2024-06-17 13:35 | ECG_ITS ---
[facility] Test Date: 2024-06-17 Pat Name: Sherri Mcintyre Department: Room: Gender: Female Quahogger: : 1960 Requested By: Jaron Allen Order Number: [id number] Mis MD: Seth Sebastian M.D. Measurements Intervals [place] Rate: 108 P: 44 OR: 166 QRS: -82 QRSD: 117 T: 41 QT: 338 QTc: 454 Interpretive Statements SINUS TACHYCARDIA LOW QRS VOLTAGE IN PRECORDIAL LEADS [QRS DEFLECTION < 1.0 mV IN CHEST LEADS] INCOMPLETE RIGHT BUNDLE BRANCH BLOCK [90+ ms QRS DURATION, TERMINAL R IN V1/V2, 40+ ms S IN I/aVL/V4/V5/V6] INFERIOR MYOCARDIAL INFARCTION , PROBABLY OLD [40+ ms Q WAVE AND/OR ST/T ABNORMALITY IN II/aVF] ANTEROLATERAL MYOCARDIAL INFARCTION , OF INDETERMINATE AGE [40+ ms Q WAVE IN I/aVL/V3-V6] Compared to ECG 05/09/2024 11:46:26 Low QRS voltage now present Left anterior fascicular block no longer present Myocardial infarct finding still present Electronically Signed On 06-17-2024 16:24:03 CDT by Seth Sebastian M.D. [id number]
--- NOTE | 2024-06-17 13:35 | CT_ITS ---
WS: [id number] CT HEAD NONCONTRAST HISTORY: seizure TECHNIQUE: Contiguous axial imaging performed through the brain in 2.5 mm imaging. Bone and soft tiss ue windows. Sagittal and coronal reformats reviewed. All CT scans at [facility] use at least one of these dose optimization techniques: automated exposure control; mA and/or kV adjustment per pa tient size (includes targeted exams where dose is matched to clinical indication); or iterative recon struction. DLP: 628.78 mGy.cm COMPARISON: 05/09/2024 No acute intracranial hemorrhage. Large area of encephalomalacia involving the LEFT frontotemporal re gion with associated aneurysmal biopsy clips. There is extensive small vessel ischemic disease in the supratentorial white matter. Moderate atrophy. Greater atrophy in the LEFT frontal lobe adjacent to the prior infarct. Ventricles: Ex vacuo dilatation of the LEFT lateral ventricle. No inferior displacement of the cerebellar tonsils. Paranasal sinuses: As visualized are clear. Mastoid air cells: Well pneumatized. Calvarium and scalp: Large craniotomy LEFT frontal temporal bone. CT/CT head wo con* [id number] IMPRESSION: 1. No acute intracranial hemorrhage or edema. 2. Large area of encephalomalacia involving the LEFT frontotemporal lobes with ex vacuo dilatation of the lateral ventricle. This is at the site of the prior aneurysm clipping. 3. LEFT frontotemporal craniotomy. 4. Advanced small vessel ischemic disease.
--- NOTE | 2024-06-17 13:39 | ED_ITS ---
HPI - Seizure General: Chief Complaint: Seizure Stated Complaint: seizure, hypertenion Time Seen by Provider: 06/17/24 13:28 Source: EMS Mode of arrival: EMS Limitations: altered mental status History of Present Illness: HPI Narrative: 64-year-old female who is here from [facility] had a history of stroke has a history of seizures as well had a 3-minute witnessed seizure at the intermediate roughly 2 hours ago patient was postictal originally started become more awake she is able to follow some commands able to tell me her name she does have right sided deficits from old stroke at her baseline per EMS Related Data Home Medications Medication Instructions Recorded Confirmed lamotrigine 150 mg tablet 150 mg PO BID@,12/30/19 05/09/24 pantoprazole 20 mg tablet,delayed 20 mg PO BID@,12/30/19 05/09/24 release simvastatin 20 mg tablet 20 mg PO DAILY@18 12/30/19 05/09/24 tamsulosin 0.4 mg capsule 0.4 mg PO DAILY@12/30/19 05/09/24 acetaminophen 325 mg tablet 650 mg PO Q6H PRN Pain 03/12/23 05/09/24 (Tylenol) albuterol sulfate 90 mcg/actuation 2 puff inhalation Q6H PRN 03/12/23 05/09/24 aerosol inhaler shortness of breath or wheezing budesonide 0.5 mg/2 mL suspension 0.5 mg inhalation BID@,03/12/23 05/09/24 for nebulization formoterol fumarate 20 mcg/2 mL 2 ml inhalation BID@,03/12/23 05/09/24 solution for nebulization (Perforomist) guaifenesin 100 mg/5 mL oral 200 mg PO Q6H PRN Congestion 03/12/23 05/09/24 liquid (Irma-Tussin) potassium chloride 20 mEq 20 meq PO DAILY@03/12/23 05/09/24 tablet,extended release(part/cryst) sertraline 25 mg tablet 25 mg PO DAILY@03/12/23 05/09/24 amlodipine 10 mg tablet 10 mg PO DAILY 03/26/23 05/09/24 loratadine 10 mg tablet 10 mg PO DAILY 03/26/23 05/09/24 quetiapine 200 mg tablet,extended 200 mg PO BEDTIME 05/09/24 05/09/24 release 24 hr Previous Rx's Medication Instructions Recorded aspirin 81 mg tablet,delayed 81 mg PO DAILY #30 tabs 03/14/23 release lisinopril 10 mg tablet 10 mg PO DAILY #30 tabs 02/04/24 metoprolol succinate 50 mg 25 mg (1/2 x 50 mg) PO DAILY@08 02/04/24 tablet,extended release 24 hr #15 tabs (Toprol XL) azithromycin 250 mg tablet See Rx Instructions PO .COMPLEX #6 05/09/24 (Zithromax Z-Sameer) tabs Allergies Allergy/AdvReac Type Severity Reaction Status Date / Time Penicillins Allergy ALGY-Rash Verified 02/04/24 13:50 Review of Systems General: Reports: ROS unobtainable due to mental status PFSH ED PFSH: Medical History Brain aneurysm GERD (gastroesophageal reflux disease) Vitamin D deficiency Incontinence in female Hyperlipidemia CVA (cerebral vascular accident) HTN (hypertension) Dementia, vascular Seizure disorder COPD (chronic obstructive pulmonary disease) Surgical History H/O excision of epidermal inclusion cyst H/O brain surgery History of 2 sections Family History Brother Hodgkins disease Father Stroke Physical Exam Const: COMMON NORMALS: negative for patient oriented x3 HENMT: COMMON NORMALS: normocephalic and atraumatic HEAD & SCALP: normocephalic and atraumatic Eye: COMMON NORMALS: Equal, round and reactive pupils present and EOMs intact bilaterally PUPIL: Yes Equal, round and reactive pupils present Neck/C-Spine: COMMON NORMALS: full ROM and supple Chest: COMMONS NORMALS: normal inspection of the chest and normal palpation of entire chest wall Resp: COMMON NORMALS: normal respiratory effort, No retractions, No use of accessory muscles and clear to auscultation bilaterally AUSCULTATION: clear to auscultation bilaterally Cardio: COMMON NORMALS: regular rate, regular rhythm and No murmurs present (Cardio) RATE: regular rate RHYTHM: regular rhythm GI: COMMON NORMALS: Normal to inspection, nondistended, normoactive bowel s ounds present, Soft to palpation, non-tender and no masses PALPATION: Yes Soft to palpation Extremity: COMMON NORMALS: normal to inspection and full ROM Neuro: COMMON NORMALS: negative for patient oriented x3 Psych: COMMON NORMALS: cooperative; negative for mental status grossly normal Skin: COMMON NORMALS: no rashes or lesions noted and no wounds GENERAL SKIN EXAM: no rashes or lesions noted Course Vital Signs: Vital signs: Vital Signs Temperature 97.4 F L 06/17/24 13:30 Pulse Rate 106 H 06/17/24 13:30 Respiratory Rate 18 06/17/24 13:30 Blood Pressure 197/108 06/17/24 13:30 Pulse Oximetry 95 06/17/24 13:30 Oxygen Delivery Me thod Room Air 06/17/24 13:30 MDM - Seizure All radiology interpretation(s) finalized by discharge EKG Data EKG 1: Attestation: I personally reviewed and interpreted this EKG as follows: EKG interpretation date: 06/17/24 EKG interpretation time: 13:38 Interpretation: sinus tach hr [address] elevation qrs 117 qtc 402 Discharge Plan Discharge Condition: Stable Prescriptions: No Action lamotrigine 150 mg tablet 150 mg PO BID@08,18 pantoprazole 20 mg tablet,delayed release (DR/EC) 20 mg PO BID@06,18 tamsulosin 0.4 mg capsule 0.4 mg PO DAILY@18 simvastatin 20 mg tablet 20 mg PO DAILY@18 metoprolol succinate [Toprol XL] 50 mg tablet extended release 24 hr 25 mg PO DAILY@08 Qty: 15 0RF lisinopril 10 mg tablet 10 mg PO DAILY Qty: 30 0RF acetaminophen [Tylenol] 325 mg Tablet 650 mg PO Q6H PRN (Reason: Pain) guaifenesin [Irma-Tussin] 100 mg/5 mL Liquid 200 mg PO Q6H PRN (Reason: Congestion) potassium chloride 20 mEq tablet,ER particles/crystals 20 meq PO DAILY@08 sertraline 25 mg tablet 25 mg PO DAILY@08 budesonide 0.5 mg/2 mL suspension for nebulization 0.5 mg inhalation BID@08,18 formoterol fumarate [Perforomist] 20 mcg/2 mL solution for nebulization 2 ml INHALATION BID@08,18 albuterol sulfate 90 mcg/actuation HFA aerosol inhaler 2 puff inhalation Q6H PRN (Reason: shortness of breath or wheezing) aspirin 81 mg Tablet,Delayed Release (Dr/Ec) 81 mg PO DAILY Qty: 30 0RF amlodipine 10 mg tablet 10 mg PO DAILY loratadine 10 mg Tablet 10 mg PO DAILY Zithromax Z-Sameer 250 mg tablet See Rx Instructions .ROUTE .COMPLEX Qty: 6 0RF Rx Instructions: For 250 mg dose pack: take 500 mg today (day 1), then 250 mg for 4 days (days 2-5) quetiapine 200 mg tablet extended release 24 hr 200 mg PO BEDTIME Referrals: Jr Cardenas MD [Primary Care Provider] - Coding Level of Care Code ED [employer] for Donna Brock
[2024-06-17] MEDS: levETIRAcetam 750 MG in sodium chloride 0.9% (100 ml) 100 ML 430 MG IV (14:13)
[2024-06-17 14:28] LABS: Basophils % 0.4 %; Eosinophils # 0.1 10^3/uL (0.0-0.8); Eosinophils % 1.9 %; Hematocrit 46.7 % (36-47); Lymphocytes # 1.4 10^3/uL (0.8-4.8); Lymphocytes % 18.6 %; Mean Corpuscular HGB Conc 33.4 g/dL (30-55); Mean Corpuscular Hemoglobin 30.2 pg (27-33); Mean Corpuscular Volume 90.3 fl (85-98); Mean Platelet Volume 10.6 fL (7.4-10.4); Monocytes # 0.4 10^3/uL (0.2-0.9); Monocytes % 5.3 %; Neutrophils # 5.53 10^3/uL (1.8-7.7); Neutrophils % 73.5 %; Nucleated Red Blood Cells % 0 %; Platelet Count 200 10^3/cmm (157-399); Red Blood Count 5.17 10^6/uL (3.85-5.65); Red Cell Distribution Width 13.2 % (12.1-15.1); White Blood Count 7.52 10^3/uL (3.29-11.43)
[2024-06-17 14:36] LABS: Alanine Aminotransferase 7 U/L (0-33); Albumin Level 3.9 g/dL (3.5-5.2); Alkaline Phosphatase 103 U/L (35-105); Anion Gap 15.9 (5-19); Aspartate Amino Transferase 13 U/L (0-32); Blood Urea Nitrogen 11 mg/dL (8-23); Calcium 8.7 mg/dL (8.5-10.5); Carbon Dioxide 27 mmol/L (22-29); Chloride 106 mmol/L (98-107); Creatinine Clr Calc Pharmacy 74.6248; Globulin 2.7 g/dL (1.3-4.6); Glomerular Filtration Rate 84.2 mL/min (90-130); Glucose 139 mg/dL (65-115); Osmolality Calculated 302 mOsm/kg (285-295); Potassium 3.9 mmol/L (3.5-5.1); Sodium 145 mmol/L (136-145); Total Bilirubin 0.3 mg/dL (0.15-1.2); Total Protein 6.6 g/dL (6.6-8.7)
[2024-06-17] MEDS: hyDRALAzine 20 mg/mL INJ 1 mL 10 MG IVP (19:38)
--- NOTE | 2024-06-17 20:26 | PC.NURSE ---
RN changed and cleaned pt's depend. pt was changed into hospital gown due to clothes being soiled. Pt is resting in bed.
== END 2024-06-17 20:53 | disposition home or self-care (01) ==
PROVIDERS: Emergency Provider Emergency Medicine; PCP Internal Medicine
DX: G40.909 Epilepsy, unspecified, not intractable, without status epilepticus (principal); R00.0 Tachycardia, unspecified
CPT/HCPCS: 36415; 70450; 80053; 85025; 93005; 96365; 96375; 99285; J0360; J1953

== ENCOUNTER 2024-12-11 14:29 | Inpatient (IN) | payer MEDICARE, MEDICAID, SELFPAY ==
[2024-12-11] VITALS (8 sets, daily range): BP systolic 137–171; BP diastolic 62–97; PULSE 91–102; RESP 16–20; TEMP 36.7; O2SAT 88–98; BMI 24.0
--- NOTE | 2024-12-11 14:37 | XR_ITS ---
WS: [id number] Exam: XR chest 1V portable [id number] Date/Time of Exam: 12/11/2024 2:40 PM Reason For Exam: dyspnea/cough Comparison 02/04/2024. Lungs are clear and fully expanded. Normal cardiomediastinal silhouette and regional bony elements. No pleural effusions. XR/XR chest 1V portable [id number] IMPRESSION: 1. No acute cardiopulmonary process.
--- NOTE | 2024-12-11 14:37 | ECG_ITS ---
[facility] Test Date: 2024-12-11 Pat Name: Sherri Mcintyre Department: Room: Gender: Female Medical Collections: : 1960 Requested By: Avinash Umana Order Number: [id number] Mis MD: Som Kwon M.D. Measurements Intervals [place] Rate: 109 P: 60 ME: 158 QRS: -81 QRSD: 117 T: 67 QT: 315 QTc: 424 Interpretive Statements SINUS TACHYCARDIA LOW QRS VOLTAGE IN PRECORDIAL LEADS [QRS DEFLECTION < 1.0 mV IN CHEST LEADS] INCOMPLETE RIGHT BUNDLE BRANCH BLOCK [90+ ms QRS DURATION, TERMINAL R IN V1/V2, 40+ ms S IN I/aVL/V4/V5/V6] Nonspecific ST-T changes LEFT ANTERIOR FASCICULAR BLOCK [QRS AXIS <= -45, QR IN I, RS IN II] POSSIBLE ANTERIOR MYOCARDIAL INFARCTION , OF INDETERMINATE AGE [30 ms Q WAVE IN V3/V4, OR R < 0.2 mV IN V4] Compared to ECG 06/17/2024 13:38:31 Left anterior fascicular block now present Myocardial infarct finding still present Electronically Signed On 12-11-2024 22:19:30 CDT by Som Kwon M.D. [email or web address]
--- NOTE | 2024-12-11 14:56 | W.ED.GENADLT ---
Documented by User: Avinash Oreilly DO 12/13/24 16:00 HPI - General Adult General: Chief complaint: Shortness of Breath/Dyspnea Stated complaint: lethargic Time Seen by Provider: 12/11/24 14:37 History of Present Illness: 64-year-old female presents emergency room from the skilled nursing with reports of hypoxia on baseline oxygen sat 88% on room air patient is poorly responsive she will respond to verbal stimuli with unintelligible mumbling's she retracts from painful stimuli no lateralizing symptoms she is unable to contribute any other history. Patient is on lamotrigine there is no report of seizure activity today Related Data Home Medications ?Medication ?Instructions ?Recorded ?Confirmed lamotrigine 150 mg tablet 150 mg PO BID@08,18 12/30/19 12/13/24 pantoprazole 20 mg tablet,delayed 20 mg PO BID@06,18 12/30/19 12/13/24 release simvastatin 20 mg tablet 20 mg PO DAILY@18 12/30/19 12/13/24 tamsulosin 0.4 mg capsule 0.4 mg PO DAILY@18 12/30/19 12/13/24 acetaminophen 325 mg tablet 650 mg PO Q6H PRN Pain 03/12/23 12/13/24 (Tylenol) albuterol sulfate 90 mcg/actuation 2 puff inhalation Q6H PRN 03/12/23 12/13/24 aerosol inhaler shortness of breath or wheezing formoterol fumarate 20 mcg/2 mL 2 ml inhalation BID@08,18 03/12/23 12/13/24 solution for nebulization (Perforomist) guaifenesin 100 mg/5 mL oral 200 mg PO Q6H PRN Congestion 03/12/23 12/13/24 liquid (Irma-Tussin) potassium chloride 20 mEq 20 meq PO DAILY@08 03/12/23 12/13/24 tablet,extended release(part/cryst) amlodipine 10 mg tablet 10 mg PO DAILY 03/26/23 12/13/24 loratadine 10 mg tablet 10 mg PO DAILY 03/26/23 12/13/24 budesonide 0.5 mg/2 mL suspension 0.5 mg inhalation BID 12/13/24 12/13/24 for nebulization metoprolol succinate 25 mg 25 mg PO DAILY 12/13/24 12/13/24 tablet,extended release 24 hr quetiapine 150 mg tablet,extended 150 mg PO BEDTIME 12/13/24 12/13/24 release 24 hr sertraline 50 mg tablet 50 mg PO BEDTIME 12/13/24 12/13/24 Previous Rx's ?Medication ?Instructions ?Recorded aspirin 81 mg tablet,delayed 81 mg PO DAILY #30 tabs 03/14/23 release lisinopril 10 mg tablet 10 mg PO DAILY #30 tabs 02/04/24 Allergies Allergy/AdvReac Type Severity Reaction Status Date / Time Penicillins Allergy ALGY-Rash Verified 02/04/24 13:50 Review of Systems General: Reports: ROS unobtainable due to mental status PFSH ED PFSH: Medical History Brain aneurysm GERD (gastroesophageal reflux disease) Vitamin D deficiency Incontinence in female Hyperlipidemia CVA (cerebral vascular accident) HTN (hypertension) Dementia, vascular Seizure disorder COPD (chronic obstructive pulmonary disease) Surgical History H/O excision of epidermal inclusion cyst H/O brain surgery History of 2 sections Family History Brother Hodgkins disease Father Stroke Physical Exam Const: GENERAL APPEARANCE: cooperative and lethargic ORIENTATION/CONSCIOUSNESS: Yes lethargic HENMT: COMMON NORMALS: normocephalic, atraumatic and hearing grossly normal bilaterally HEAD & SCALP: normocephalic and atraumatic Resp: COMMON NORMALS: normal respiratory effort, No retractions, No use of accessory muscles and clear to auscultation bilaterally AUSCULTATION: clear to auscultation bilaterally Cardio: COMMON NORMALS: regular rate, regular rhythm and No murmurs present (Cardio) RATE: regular rate RHYTHM: regular rhythm GI: COMMON NORMALS: Soft to palpation and No hepatosplenomegaly present AUSCULTATION: Yes normoactive bowel sounds PALPATION: Yes Soft to palpation, No Tenderness to palpation present (GI), No Guarding due to palpation present (GI) and Yes No hepatosplenomegaly present Extremity: COMMON NORMALS: normal to inspection, capillary refill normal, no clubbing, cyanosis or edema, no calf tenderness and no pedal edema Neuro: SENSORIUM/ORIENTATION: Yes lethargic OTHER: No focal deficits response to painful stimuli by withdrawing. Will respond to verbal stimuli but answers are unintelligible normal facial symmetry no weakness. No lateralizing symptoms. Skin: COMMON NORMALS: no rashes or lesions noted GENERAL SKIN EXAM: no rashes or lesions noted Course Vital Signs: Vital signs: Vital Signs Temperature 97.6 F 12/13/24 11:26 Pulse Rate 67 12/13/24 11:26 Respiratory Rate 14 12/13/24 11:26 Blood Pressure 127/71 12/13/24 11:26 Pulse Oximetry 92 12/13/24 11:26 Oxygen Delivery Me thod Nasal Cannula 12/13/24 11:26 Oxygen Flow Rate 2 12/13/24 08:26 MDM - General Adult Medical Decision Making Care signed out to [] At change of shift. See final notes for diagnosis and disposition. Patient care transferred over to myself at shift change, lab work was reviewed as well as chest x-ray and head CT, patient still requiring oxygen still appears confused, we will discuss the case with Dr. Rodriguez, Dr. Rodriguez is agreeable to admission for [facility] [place]. Lab Data 12/13/24 05:05 12/13/24 05:05 Radiology Impressions Chest X-Ray 12/11/24 14:37 IMPRESSION: 1. No acute cardiopulmonary process. Head CT 12/11/24 14:57 IMPRESSION: No acute intracranial abnormality. Laboratory Results WBC 6.41 10^3/uL (3.29-11.43) 12/11/24 15:33 RBC 4.44 10^6/uL (3.85-5.65) 12/11/24 15:33 Hgb 13.30 g/dL (11.27-16.99) 12/11/24 15:33 Hct 40.6 % (36-47) 12/11/24 15:33 MCV 91.4 fl (85-98) 12/11/24 15:33 MCH 30.0 pg (27-33) 12/11/24 15:33 MCHC 32.8 g/dL (30-55) 12/11/24 15:33 RDW 13.4 % (12.1-15.1) 12/11/24 15:33 Plt Count 148 10^3/cmm (157-399) L 12/11/24 15:33 MPV 11.3 fL (7.4-10.4) H 12/11/24 15:33 Neut % (Auto) 84.4 % 12/11/24 15:33 Lymph % (Auto) 6.2 % 12/11/24 15:33 [place] % (Auto) 8.6 % 12/11/24 15: Eos % (Auto) 0.0 % 12/11/24 15: Baso % (Auto) 0.3 % 12/11/24 15:33 Neut # (Auto) 5.41 10^3/uL (1.8-7.7) 12/11/24 15: Lymph # (Auto) 0.4 10^3/uL (0.8-4.8) L 12/11/24 15: [place] # (Auto) 0.6 10^3/uL (0.2-0.9) 12/11/24 15: Eos # (Auto) 0.0 10^3/uL (0.0-0.8) 12/11/24 15: Baso # (Auto) 0.0 10^3/uL (0.0-0.1) 12/11/24 15: Nucleated RBC % (auto) 0 % 12/11/24 15: Nucleated RBCs # 0.0 /100WBC 12/11/24 15:33 Sodium 139 mmol/L (136-145) 12/11/24 15:33 Potassium 3.8 mmol/L (3.5-5.1) 12/11/24 15: Chloride 103 mmol/L (98-107) 12/11/24 15: Carbon Dioxide 25 mmol/L (22-29) 12/11/24 15:33 Anion Gap 14.8 (5-19) 12/11/24 15:33 BUN 18 mg/dL (8-23) 12/11/24 15:33 Creatinine 0.7 mg/dL (0.5-0.9) 12/11/24 15:33 GFR Calculation 84.2 mL/min (90-130) L 12/11/24 15:33 Glucose 105 mg/dL (65-115) 12/11/24 15:33 Calculated Osmolality 290 mOsm/kg (285-295) 12/11/24 15:33 Lactic Acid 0.8 mmol/L (0.5-2.2) 12/11/24 15:33 Calcium 8.8 mg/dL (8.5-10.5) 12/11/24 15:33 Total Bilirubin 0.4 mg/dL (0.15-1.2) 12/11/24 15:33 AST 20 U/L (0-32) 12/11/24 15:33 ALT 10 U/L (0-33) 12/11/24 15:33 Alkaline Phosphatase 81 U/L (35-105) 12/11/24 15:33 Ammonia 31 umol/L (11-51) 12/11/24 15:33 Creatine Kinase 635 U/L (26-192) H* 12/11/24 15:33 C-Reactive Protein 73.3 mg/L (0.0-4.9) H 12/11/24 15:33 Total Protein 6.8 g/dL (6.6-8.7) 12/11/24 15:33 Albumin 3.6 g/dL (3.5-5.2) 12/11/24 15:33 Globulin 3.2 g/dL (1.3-4.6) 12/11/24 15:33 Procalcitonin 0.08 ng/mL (0-0.5) 12/11/24 15:33 Urine Color Yellow (Yellow) 12/11/24 15:50 Urine Appearance Clear (CLEAR) 12/11/24 15:50 Urine pH 5.0 (5-7) 12/11/24 15:50 Ur Specific [place] 1.027 (1.005-1.030) 12/11/24 15:50 Urine Protein 1+ (Negative) A 12/11/24 15:50 Urine Glucose (UA) Negative (Normal) 12/11/24 15:50 Urine Ketones 1+ (Negative) H 12/11/24 15:50 Urine Blood 2+ (Negative) A 12/11/24 15:50 Urine Nitrate Positive (Negative) A 12/11/24 15:50 Urine Bilirubin Negative (Negative) 12/11/24 15:50 Urine Urobilinogen 1.0 mg/dL (Negative) 12/11/24 15:50 Ur Leukocyte Esterase Trace (Negative) A 12/11/24 15:50 Urine RBC 0-2 /hpf (0-2) 12/11/24 15:50 Urine WBC 11-20 /hpf (0-5) H 12/11/24 15:50 Ur Squamous Epith Cells 11-20 /hpf (0-5) H 12/11/24 15:50 Amorphous Sediment Not Reportable 12/11/24 15:50 Urine Bacteria 4+ /hpf (NONE) H 12/11/24 15:50 Hyaline Casts 0.81 /lpf 12/11/24 15:50 Salicylates < 0.3 mg/dL (3-10) L 12/11/24 15:33 Urine Opiates Screen Negative ng/mL (Negative) 12/11/24 15:50 Acetaminophen < 5.0 ug/mL (10-30) L 12/11/24 15:33 Ur Barbiturates Screen Negative ng/mL (Negative) 12/11/24 15:50 Ur Phencyclidine Scrn Negative ng/mL (Negative) 12/11/24 15:50 Ur Amphetamines Screen Negative ng/mL (Negative) 12/11/24 15:50 U Benzodiazepines Scrn Negative ng/mL (Negative) 12/11/24 15:50 Urine Cocaine Screen Negative ng/mL (Negative) 12/11/24 15:50 U Marijuana (THC) Screen Negative ng/mL (Negative) 12/11/24 15:50 Ethyl Alcohol < 10 mg/dL (0-10) 12/11/24 15:33 Serum Ketones Negative (Negative) 12/11/24 15:33 Influenza A (PCR) Positive (Negative) 12/11/24 15:23 Influenza Type B (PCR) Negative (Negative) 12/11/24 15:23 RSV (PCR) Negative (Negative) 12/11/24 15:23 SARS-CoV-2 (PCR) Negative (Negative) 12/11/24 15:23 Discharge Plan Discharge Patient Disposition: Admitted As Inpatient Admit Provider: Arturo Elise Clinical Impression: Influenza A, Hypoxia Urinary tract infection Qualifiers: Urinary tract infection type: acute cystitis Hematuria presence: with hematuria Qualified Code(s): N30.01 - Acute cystitis with hematuria Condition: Stable Coding Level of Care Code ED [employer] Developer for Chg Fwd Documented by User: Christiano Milton DO 12/11/24 22:58 HPI - General Adult General: Chief complaint: Shortness of Breath/Dyspnea Stated complaint: lethargic Time Seen by Provider: 12/11/24 14:37 Related Data Home Medications ?Medication ?Instructions ?Recorded ?Confirmed lamotrigine 150 mg tablet 150 mg PO BID@08,18 12/30/19 12/13/24 pantoprazole 20 mg tablet,delayed 20 mg PO BID@06,18 12/30/19 12/13/24 release simvastatin 20 mg tablet 20 mg PO DAILY@18 12/30/19 12/13/24 tamsulosin 0.4 mg capsule 0.4 mg PO DAILY@18 12/30/19 12/13/24 acetaminophen 325 mg tablet 650 mg PO Q6H PRN Pain 03/12/23 12/13/24 (Tylenol) albuterol sulfate 90 mcg/actuation 2 puff inhalation Q6H PRN 03/12/23 12/13/24 aerosol inhaler shortness of breath or wheezing formoterol fumarate 20 mcg/2 mL 2 ml inhalation BID@08,18 03/12/23 12/13/24 solution for nebulization (Perforomist) guaifenesin 100 mg/5 mL oral 200 mg PO Q6H PRN Congestion 03/12/23 12/13/24 liquid (Irma-Tussin) potassium chloride 20 mEq 20 meq PO DAILY@08 03/12/23 12/13/24 tablet,extended release(part/cryst) amlodipine 10 mg tablet 10 mg PO DAILY 03/26/23 12/13/24 loratadine 10 mg tablet 10 mg PO DAILY 03/26/23 12/13/24 budesonide 0.5 mg/2 mL suspension 0.5 mg inhalation BID 12/13/24 12/13/24 for nebulization metoprolol succinate 25 mg 25 mg PO DAILY 12/13/24 12/13/24 tablet,extended release 24 hr quetiapine 150 mg tablet,extended 150 mg PO BEDTIME 12/13/24 12/13/24 release 24 hr sertraline 50 mg tablet 50 mg PO BEDTIME 12/13/24 12/13/24 Previous Rx's ?Medication ?Instructions ?Recorded aspirin 81 mg tablet,delayed 81 mg PO DAILY #30 tabs 03/14/23 release lisinopril 10 mg tablet 10 mg PO DAILY #30 tabs 02/04/24 Allergies Allergy/AdvReac Type Severity Reaction Status Date / Time Penicillins Allergy ALGY-Rash Verified 02/04/24 13:50 PFSH ED PFSH: Medical History Brain aneurysm GERD (gastroesophageal reflux disease) Vitamin D deficiency Incontinence in female Hyperlipidemia CVA (cerebral vascular accident) HTN (hypertension) Dementia, vascular Seizure disorder COPD (chronic obstructive pulmonary disease) Surgical History H/O excision of epidermal inclusion cyst H/O brain surgery History of 2 sections Family History Brother Hodgkins disease Father Stroke Course Vital Signs: Vital signs: Vital Signs Temperature 97.6 F 12/13/24 11:26 Pulse Rate 67 12/13/24 11:26 Respiratory Rate 14 12/13/24 11:26 Blood Pressure 127/71 12/13/24 11:26 Pulse Oximetry 92 12/13/24 11:26 Oxygen Delivery Me thod Nasal Cannula 12/13/24 11:26 Oxygen Flow Rate 2 12/13/24 08:26 MDM - General Adult Medical Decision Making Patient care transferred over to myself at shift change, lab work was reviewed as well as chest x-ray and head CT, patient still requiring oxygen still appears confused, we will discuss the case with Dr. Rodriguez, Dr. Rodriguez is agreeable to admission for [facility] [place]. Lab Data 12/13/24 05:05 12/13/24 05:05 Radiology Impressions Chest X-Ray 12/11/24 14:37 IMPRESSION: 1. No acute cardiopulmonary process. Head CT 12/11/24 14:57 IMPRESSION: No acute intracranial abnormality. Laboratory Results WBC 6.41 10^3/uL (3.29-11.43) 12/11/24 15:33 RBC 4.44 10^6/uL (3.85-5.65) 12/11/24 15:33 Hgb 13.30 g/dL (11.27-16.99) 12/11/24 15:33 Hct 40.6 % (36-47) 12/11/24 15:33 MCV 91.4 fl (85-98) 12/11/24 15: MCH 30.0 pg (27-33) 12/11/24 15: MCHC 32.8 g/dL (30-55) 12/11/24 15:33 RDW 13.4 % (12.1-15.1) 12/11/24 15:33 Plt Count 148 10^3/cmm (157-399) L 12/11/24 15: MPV 11.3 fL (7.4-10.4) H 12/11/24 15:33 Neut % (Auto) 84.4 % 12/11/24 15: Lymph % (Auto) 6.2 % 12/11/24 15:33 [place] % (Auto) 8.6 % 12/11/24 15:33 Eos % (Auto) 0.0 % 12/11/24 15:33 Baso % (Auto) 0.3 % 12/11/24 15:33 Neut # (Auto) 5.41 10^3/uL (1.8-7.7) 12/11/24 15:33 Lymph # (Auto) 0.4 10^3/uL (0.8-4.8) L 12/11/24 15:33 [place] # (Auto) 0.6 10^3/uL (0.2-0.9) 12/11/24 15:33 Eos # (Auto) 0.0 10^3/uL (0.0-0.8) 12/11/24 15:33 Baso # (Auto) 0.0 10^3/uL (0.0-0.1) 12/11/24 15: Nucleated RBC % (auto) 0 % 12/11/24 15: Nucleated RBCs # 0.0 /100WBC 12/11/24 15:33 Sodium 139 mmol/L (136-145) 12/11/24 15:33 Potassium 3.8 mmol/L (3.5-5.1) 12/11/24 15:33 Chloride 103 mmol/L (98-107) 12/11/24 15:33 Carbon Dioxide 25 mmol/L (22-29) 12/11/24 15:33 Anion Gap 14.8 (5-19) 12/11/24 15:33 BUN 18 mg/dL (8-23) 12/11/24 15:33 Creatinine 0.7 mg/dL (0.5-0.9) 12/11/24 15:33 GFR Calculation 84.2 mL/min (90-130) L 12/11/24 15:33 Glucose 105 mg/dL (65-115) 12/11/24 15:33 Calculated Osmolality 290 mOsm/kg (285-295) 12/11/24 15:33 Lactic Acid 0.8 mmol/L (0.5-2.2) 12/11/24 15:33 Calcium 8.8 mg/dL (8.5-10.5) 12/11/24 15:33 Total Bilirubin 0.4 mg/dL (0.15-1.2) 12/11/24 15:33 AST 20 U/L (0-32) 12/11/24 15:33 ALT 10 U/L (0-33) 12/11/24 15:33 Alkaline Phosphatase 81 U/L (35-105) 12/11/24 15:33 Ammonia 31 umol/L (11-51) 12/11/24 15:33 Creatine Kinase 635 U/L (26-192) H* 12/11/24 15:33 C-Reactive Protein 73.3 mg/L (0.0-4.9) H 12/11/24 15:33 Total Protein 6.8 g/dL (6.6-8.7) 12/11/24 15:33 Albumin 3.6 g/dL (3.5-5.2) 12/11/24 15:33 Globulin 3.2 g/dL (1.3-4.6) 12/11/24 15:33 Procalcitonin 0.08 ng/mL (0-0.5) 12/11/24 15:33 Urine Color Yellow (Yellow) 12/11/24 15:50 Urine Appearance Clear (CLEAR) 12/11/24 15:50 Urine pH 5.0 (5-7) 12/11/24 15:50 Ur Specific [place] 1.027 (1.005-1.030) 12/11/24 15:50 Urine Protein 1+ (Negative) A 12/11/24 15:50 Urine Glucose (UA) Negative (Normal) 12/11/24 15:50 Urine Ketones 1+ (Negative) H 12/11/24 15:50 Urine Blood 2+ (Negative) A 12/11/24 15:50 Urine Nitrate Positive (Negative) A 12/11/24 15:50 Urine Bilirubin Negative (Negative) 12/11/24 15:50 Urine Urobilinogen 1.0 mg/dL (Negative) 12/11/24 15:50 Ur Leukocyte Esterase Trace (Negative) A 12/11/24 15:50 Urine RBC 0-2 /hpf (0-2) 12/11/24 15:50 Urine WBC 11-20 /hpf (0-5) H 12/11/24 15:50 Ur Squamous Epith Cells 11-20 /hpf (0-5) H 12/11/24 15:50 Amorphous Sediment Not Reportable 12/11/24 15:50 Urine Bacteria 4+ /hpf (NONE) H 12/11/24 15:50 Hyaline Casts 0.81 /lpf 12/11/24 15:50 Salicylates < 0.3 mg/dL (3-10) L 12/11/24 15:33 Urine Opiates Screen Negative ng/mL (Negative) 12/11/24 15:50 Acetaminophen < 5.0 ug/mL (10-30) L 12/11/24 15:33 Ur Barbiturates Screen Negative ng/mL (Negative) 12/11/24 15:50 Ur Phencyclidine Scrn Negative ng/mL (Negative) 12/11/24 15:50 Ur Amphetamines Screen Negative ng/mL (Negative) 12/11/24 15:50 U Benzodiazepines Scrn Negative ng/mL (Negative) 12/11/24 15:50 Urine Cocaine Screen Negative ng/mL (Negative) 12/11/24 15:50 U Marijuana (THC) Screen Negative ng/mL (Negative) 12/11/24 15:50 Ethyl Alcohol < 10 mg/dL (0-10) 12/11/24 15:33 Serum Ketones Negative (Negative) 12/11/24 15:33 Influenza A (PCR) Positive (Negative) 12/11/24 15:23 Influenza Type B (PCR) Negative (Negative) 12/11/24 15:23 RSV (PCR) Negative (Negative) 12/11/24 15:23 SARS-CoV-2 (PCR) Negative (Negative) 12/11/24 15:23 All radiology interpretation(s) finalized by discharge Discharge Plan Discharge Patient Disposition: Admitted As Inpatient Admit Provider: Arturo Elise Clinical Impression: Influenza A, Hypoxia Urinary tract infection Qualifiers: Urinary tract infection type: acute cystitis Hematuria presence: with hematuria Qualified Code(s): N30.01 - Acute cystitis with hematuria Condition: Stable Coding Level of Care Code ED [employer] Developer for Donna Brock
--- NOTE | 2024-12-11 14:57 | CTR_ITS ---
PROCEDURE INFORMATION: Exam: CT Head Without Contrast Exam date and time: 12/11/2024 3:05 PM Age: 64 years old Clinical indication: Altered mental status/memory loss; Additional info: AMS TECHNIQUE: Imaging protocol: Computed tomography of the head without contrast. Radiation optimization: All CT scans at this facility use at least one of these dose optimization techniques: automated exposure control; mA and/or kV adjustment per patient size (includes targeted exams where dose is matched to clinical indication); or iterative reconstruction. COMPARISON: CT head wo con* [id number] 06/17/2024 1:48 PM RADIATION DOSE METRICS: Total DLP (mGy-cm): 1005.25 FINDINGS: Brain: Stable large area of encephalomalacia involving the inferior left frontal lobe and anterior left temporal lobe. No acute confluent lobar ischemic infarct. No acute intracranial hemorrhage. Severe nonspecific white matter low attenuation which may be related to microvascular ischemic changes. Cerebral ventricles: Ex vacuo dilation of the left lateral ventricle. The ventricles and sulci are prominent in size compatible with mild atrophy. Paranasal sinuses: No fluid levels. Mastoid air cells: Visualized mastoid air cells are well aerated. Bones: Redemonstration of the left-sided craniotomy. Soft tissues: Visualized soft tissues are unremarkable. Vasculature: Redemonstration of aneurysm clips in the region of the anterior communicating artery and left M1 branch. The clips creating artifact limiting evaluation. CT/CT head wo con* [id number] IMPRESSION: No acute intracranial abnormality.
[2024-12-11 15:49] LABS: Basophils % 0.3 %; Hematocrit 40.6 % (36-47); Lymphocytes # 0.4 10^3/uL (0.8-4.8); Lymphocytes % 6.2 %; Mean Corpuscular HGB Conc 32.8 g/dL (30-55); Mean Corpuscular Volume 91.4 fl (85-98); Mean Platelet Volume 11.3 fL (7.4-10.4); Monocytes # 0.6 10^3/uL (0.2-0.9); Monocytes % 8.6 %; Neutrophils # 5.41 10^3/uL (1.8-7.7); Neutrophils % 84.4 %; Nucleated Red Blood Cells % 0 %; Platelet Count 148 10^3/cmm (157-399); Red Blood Count 4.44 10^6/uL (3.85-5.65); Red Cell Distribution Width 13.4 % (12.1-15.1); White Blood Count 6.41 10^3/uL (3.29-11.43)
[2024-12-11 16:03] LABS: Ketone (Acetest) Serum Negative (Negative)
[2024-12-11 16:08] LABS: Influenza A POSITIVE (Negative); Influenza B NEGATIVE (Negative); Respiratory Syncytial Virus Ce NEGATIVE (Negative); SARS-CoV-2 PCR NEGATIVE (Negative)
[2024-12-11 16:10] LABS: Alanine Aminotransferase 10 U/L (0-33); Albumin Level 3.6 g/dL (3.5-5.2); Alkaline Phosphatase 81 U/L (35-105); Anion Gap 14.8 (5-19); Aspartate Amino Transferase 20 U/L (0-32); Blood Urea Nitrogen 18 mg/dL (8-23); Calcium 8.8 mg/dL (8.5-10.5); Carbon Dioxide 25 mmol/L (22-29); Chloride 103 mmol/L (98-107); Creatinine Clr Calc Pharmacy 74.6248; Globulin 3.2 g/dL (1.3-4.6); Glomerular Filtration Rate 84.2 mL/min (90-130); Glucose 105 mg/dL (65-115); Osmolality Calculated 290 mOsm/kg (285-295); Potassium 3.8 mmol/L (3.5-5.1); Sodium 139 mmol/L (136-145); Total Bilirubin 0.4 mg/dL (0.15-1.2); Total Protein 6.8 g/dL (6.6-8.7)
[2024-12-11 16:11] LABS: Lactic Sepsis W/Reflex 0.8 mmol/L (0.5-2.2)
[2024-12-11 16:13] LABS: Acetaminophen < 5.0 ug/mL (10-30); Alcohol Level < 10 mg/dL (0-10); Salicylate < 0.3 mg/dL (3-10)
[2024-12-11 16:14] LABS: Bilirubin Urine Negative (Negative); Blood Urine 2+ (Negative); Glucose Urine UA Negative (Normal); Ketones Urine 1+ (Negative); Leukocyte Esterase Urine Trace (Negative); Nitrate Urine Positive (Negative); Protein Urine 1+ (Negative); Specific Gravity, Urine 1.027 (1.005-1.030); Urine Appearance Clear (CLEAR); Urine Color Yellow (Yellow)
[2024-12-11 16:16] LABS: Creatine Phosphokinase 635 U/L (26-192)
[2024-12-11 16:18] LABS: Amphetamines Screen Urine Negative (Negative); Barbiturates Screen Urine Negative (Negative); Benzodiazepines Screen Urine Negative (Negative); Cocaine Screen Urine Negative (Negative); Opiate Screen Urine Negative (Negative); PCP Screen Urine Negative (Negative); THC Screen Urine Negative (Negative)
[2024-12-11 16:22] LABS: Add Urine Microscopic? YES; Bacteria Urine 4+ /hpf; Hyaline Casts Urine 0.81 /lpf; RBC Urine 0-2 /hpf (0-2)
[2024-12-11 16:26] LABS: Ammonia 31 umol/L (11-51)
[2024-12-11 16:56] LABS: UA Slide Review UA Slide Review Perf
[2024-12-11 16:58] LABS: Add Urine Culture? Yes
[2024-12-11] MEDS: ciprofloxacin 400 MG/200 ML PREMIX 200 MG IV (18:17)
--- NOTE | 2024-12-11 18:26 | PM.HP ---
Providers/Chief Complaint Primary Care Provider: Jr Cardenas MD Chief Complaint: lethargic History of Present Illness Sherri Mcintyre is a 64 year old female with a past medical history with a past medical history of CVA, vascular dementia, cerebral aneurysm, COPD, hypertension, hyperlipidemia, seizure disorder who presents to [facility] due to altered mental status. Currently patient is alert, awake, she responds to her name, but I cannot get any other history from her, she has spontaneous movement of her upper lower extremities, is diffusely encephalopathic, GCS score is 12, maintaining her airway, currently on 2 L, normotensive, heart rates sinus tachycardia 102, according to ER provider patient was sent over from the detention due to O2 sats 88% on room air, patient was less responsive, had encephalopathy Review of Systems Const: Reports: fatigue and malaise; Denies: fever(s) or chills Medications/Allergies Home Medications ?Medication ?Instructions ?Recorded ?Confirmed ?Last Taken ?Type lamotrigine 150 mg tablet 150 mg PO BID@,12/30/19 06/17/24 06/16/24 History pantoprazole 20 mg tablet,delayed 20 mg PO BID@,12/30/19 06/17/24 06/15/24 History release simvastatin 20 mg tablet 20 mg PO DAILY@12/30/19 06/17/24 06/16/24 History tamsulosin 0.4 mg capsule 0.4 mg PO DAILY@12/30/19 06/17/24 06/16/24 History acetaminophen 325 mg tablet 650 mg PO Q6H PRN Pain 03/12/23 06/17/24 05/09/24 History (Tylenol) albuterol sulfate 90 mcg/actuation 2 puff inhalation Q6H PRN 03/12/23 06/17/24 Unknown History aerosol inhaler shortness of breath or wheezing formoterol fumarate 20 mcg/2 mL 2 ml inhalation BID@03/12/23 06/17/24 06/16/24 History solution for nebulization (Perforomist) guaifenesin 100 mg/5 mL oral 200 mg PO Q6H PRN Congestion 03/12/23 06/17/24 Unknown History liquid (Irma-Tussin) potassium chloride 20 mEq 20 meq PO DAILY@03/12/23 06/17/24 06/16/24 History tablet,extended release(part/cryst) sertraline 25 mg tablet 25 mg PO DAILY@08 03/12/23 06/17/24 06/16/24 History aspirin 81 mg tablet,delayed 81 mg PO DAILY #30 tabs 03/14/23 06/17/24 06/16/24 Rx release amlodipine 10 mg tablet 10 mg PO DAILY 03/26/23 06/17/24 06/16/24 History loratadine 10 mg tablet 10 mg PO DAILY 03/26/23 06/17/24 06/16/24 History lisinopril 10 mg tablet 10 mg PO DAILY #30 tabs 02/04/24 06/17/24 06/16/24 Rx metoprolol succinate 50 mg 25 mg (1/2 x 50 mg) PO DAILY@02/04/24 06/17/24 06/16/24 Rx tablet,extended release 24 hr #15 tabs (Toprol XL) quetiapine 200 mg tablet,extended 200 mg PO BEDTIME 05/09/24 06/17/24 06/16/24 History release 24 hr Allergies Allergy/AdvReac Type Severity Reaction Status Date / Time Penicillins Allergy ALGY-Rash Verified 02/04/24 13:50 PFSH Acute PFSH: Medical History Brain aneurysm GERD (gastroesophageal reflux disease) Vitamin D deficiency Incontinence in female Hyperlipidemia CVA (cerebral vascular accident) HTN (hypertension) Dementia, vascular Seizure disorder COPD (chronic obstructive pulmonary disease) Surgical History H/O excision of epidermal inclusion cyst H/O brain surgery History of 2 sections Family History Brother Hodgkins disease Father Stroke Vitals/I&O/Wt Last Vital Signs Temp 98.1 F 12/11/24 14:38 Pulse 102 H 12/11/24 17:03 Resp 16 12/11/24 14:38 BP 158/80 12/11/24 17:03 Pulse Ox 96 12/11/24 17:03 O2 Del Method Nasal Cannula 12/11/24 17:03 O2 Flow Rate 2 12/11/24 17:03 Weight last 48 hrs Weight 63.503 kg Physical Exam Const: COMMON NORMALS: no acute distress EXAM LIMITATIONS: altered mental status ORIENTATION/CONSCIOUSNESS: Yes awake, Yes oriented to person and Yes confused; not oriented to place and not oriented to time HENMT: COMMON NORMALS: normocephalic HEAD & SCALP: normocephalic Eye: COMMON NORMALS: Equal, round and reactive pupils present Resp: COMMON NORMALS: normal respiratory effort, No retractions, No use of accessory muscles and clear to auscultation bilaterally AUSCULTATION: crackles and wheezes Cardio: COMMON NORMALS: no JVD, regular rate, regular rhythm, S1 normal heart sound present and S2 normal heart sound present RATE: regular rate RHYTHM: regular rhythm HEART SOUNDS: S1 normal heart sound present and S2 normal heart sound present GI: COMMON NORMALS: Normal to inspection, nondistended, normoactive bowel sounds present, Soft to palpation and non-tender Extremity: COMMON NORMALS: no pedal edema Neuro: OTHER: diffusely encephaloapthic Data 12/11/24 15:33 12/11/24 15:33 Micro: Microbiology 12/11/24 15:33 Blood Culture - Preliminary Blood SPECIMEN COLLECTED 12/11/24 15:39 Blood Culture - Preliminary Blood SPECIMEN COLLECTED A&P Assessment and plan (1) Influenza A: (2) Urinary tract infection: Qualifiers: Hematuria presence: with hematuria Urinary tract infection type: acute cystitis Qualified Code(s): N30.01 - Acute cystitis with hematuria (3) Altered mental status: (4) Dehydration: Plan Urinary tract infection, as risk factors for ESBL, penicillin allergy, start meropenem Altered mental status, -Neurochecks -Aspiration precautions -Will keep patient n.p.o. -No seizure-like symptoms -NIH stroke scale difficult to assess given diffuse encephalopathy cannot discern any facial droop, she moves bilateral upper and lower extremities, does not follow commands Influenza A, start Tamiflu History of seizure disorder, continue home seizure medications History of CVA PDMP PDMP Reviewed: Not Reviewed Attestations Medical Necessity Statement*: Patient requires hospitalization due to altered mental status, inpatient, greater than 2 midnights Diagnoses Influenza A J10.1 Urinary tract infection N30.01 Hematuria presence: with hematuria Urinary tract infection type: acute cystitis Altered mental status R41.82 Dehydration E86.0
[2024-12-11 18:57] LABS: C Reactive Protein 73.3 mg/L (0.0-4.9)
[2024-12-11 19:04] LABS: Procalcitonin 0.08 ng/mL (0-0.5)
--- NOTE | 2024-12-11 19:21 | PC.NURSE ---
update given to dion CHRISTIANSON regarding pt being admitted.
[2024-12-11] MEDS: oseltamivir phosphate 75 mg Capsule PO (20:20)
[2024-12-11] MEDS: pantoprazole 40 mg SDV IVP (20:20)
[2024-12-11] MEDS: enoxaparin 40 mg/0.4 mL Syringe SUBCUT (20:20)
[2024-12-11] MEDS: meropenem 500 mg SDV IVP (20:20)
[2024-12-11] MEDS: sodium chloride 0.9% 1,000 ML 75 ML IV (20:21)
[2024-12-11 20:27] LABS: INR 1.03 (0.8-1.2)
[2024-12-11 20:42] LABS: NT Pro B Type Natriuretic Pept 379 pg/mL (0-125); Thyroid Stimulating Hormone 0.76 uIU/mL (0.27-4.20)
[2024-12-11 20:55] LABS: Estmated Average Glucose 103; Hemoglobin A1C 5.2 % (4.0-6.0)
[2024-12-11] MEDS: quetiapine XR (24HR) 50 mg Tablet PO (21:49)
--- NOTE | 2024-12-11 21:50 | PC.NURSE ---
Seroquel: Pt was only able to swallow 1 of 4 tablets for 200 mg dose of Seroquel XR. Pharmacy notified. Kolby from pharmacy said to undo history for previous dose and document not given, then put in a new one time order for 50 mg seroquel XR. Documentation updated in NOV.
[2024-12-12] VITALS (9 sets, daily range): BP systolic 104–158; BP diastolic 62–76; PULSE 73–99; RESP 16–22; TEMP 36.5–36.8; O2SAT 90–99
[2024-12-12] MEDS: meropenem 500 mg SDV IVP ×3 (04:58→20:32)
[2024-12-12 06:08] LABS: Basophils % 0.4 %; Hematocrit 38.6 % (36-47); Lymphocytes # 0.7 10^3/uL (0.8-4.8); Mean Corpuscular HGB Conc 32.4 g/dL (30-55); Mean Corpuscular Hemoglobin 29.6 pg (27-33); Mean Corpuscular Volume 91.5 fl (85-98); Mean Platelet Volume 10.8 fL (7.4-10.4); Monocytes # 0.4 10^3/uL (0.2-0.9); Neutrophils # 3.99 10^3/uL (1.8-7.7); Neutrophils % 77.4 %; Nucleated Red Blood Cells % 0 %; Platelet Count 153 10^3/cmm (157-399); Red Blood Count 4.22 10^6/uL (3.85-5.65); Red Cell Distribution Width 13.5 % (12.1-15.1); White Blood Count 5.15 10^3/uL (3.29-11.43)
[2024-12-12 06:23] LABS: Alanine Aminotransferase 11 U/L (0-33); Albumin Level 3.2 g/dL (3.5-5.2); Alkaline Phosphatase 68 U/L (35-105); Anion Gap 14.6 (5-19); Aspartate Amino Transferase 21 U/L (0-32); Blood Urea Nitrogen 15 mg/dL (8-23); Calcium 8.2 mg/dL (8.5-10.5); Carbon Dioxide 25 mmol/L (22-29); Chloride 105 mmol/L (98-107); Creatinine Clr Calc Pharmacy 74.6248; Globulin 2.6 g/dL (1.3-4.6); Glomerular Filtration Rate 84.2 mL/min (90-130); Glucose 84 mg/dL (65-115); Magnesium 1.7 mg/dL (1.7-2.3); Osmolality Calculated 292 mOsm/kg (285-295); Phosphorus 2.5 mg/dL (2.5-4.5); Potassium 3.6 mmol/L (3.5-5.1); Sodium 141 mmol/L (136-145); Total Bilirubin 0.3 mg/dL (0.15-1.2); Total Protein 5.8 g/dL (6.6-8.7)
[2024-12-12] MEDS: lamoTRIgine 100 mg Tablet 150 MG PO ×2 (08:38→18:00)
[2024-12-12] MEDS: metoprolol succinate ER (24 HR) 50 mg Tablet 25 MG PO (08:38)
[2024-12-12] MEDS: sertraline 50 mg Tablet 25 MG PO (08:38)
[2024-12-12] MEDS: oseltamivir phosphate 75 mg Capsule PO ×2 (08:38→18:01)
[2024-12-12] MEDS: lisinopril 10 mg Tablet PO (08:39)
[2024-12-12] MEDS: aspirin 81 mg EC Tablet PO (08:39)
[2024-12-12] MEDS: amlodipine 10 mg Tablet PO (08:39)
--- NOTE | 2024-12-12 12:53 | PC.SOCIAL ---
IMM UPDATED IMM dated and initialed, copy given to patient and copy placed in chart.
[2024-12-12] MEDS: sodium chloride 0.9% 1,000 ML 75 ML IV (13:03)
--- NOTE | 2024-12-12 17:09 | P.PN_ITS ---
Subjective 2 Subjective: Patient was seen this morning, she is alert to person, not to place, not to time she can follow commands, she does have right-sided weakness right upper right lower extremity weakness that is more discernible today on exam nation, she is much more alert and awake this morning, she can follow some commands, -I spoke to patient's jail, [facility]ita ent has chronic right upper right lower extremity weakness, right-sided hemiplegia, status post CVA, she is Agnieszka dependent, she does have dementia, she does have episodes of confusion, Vitals/I&O/Wt Last Vital Signs Temp 97.8 F 12/12/24 12:00 Pulse 73 12/12/24 12:00 Resp 16 12/12/24 08:18 BP 104/63 12/12/24 12:00 Pulse Ox 90 12/12/24 12:00 O2 Del Method Nasal Cannula 12/12/24 12:00 O2 Flow Rate 3 12/12/24 08:18 12/12/24 12/12/24 12/12/24 06:59 14:59 22:59 Intake Total 1240 / 1240 Balance 1240 / 1240 Weight last 48 hrs Weight 63.503 kg Weight 63.503 kg Weight 59.874 kg Weight 63.503 kg Physical Exam 2 Const: COMMON NORMALS: no acute distress ORIENTATION/CONSCIOUSNESS: Yes awake, Yes oriented to person and Yes confused; not oriented to place and not oriented to time Resp: COMMON NORMALS: normal respiratory effort, No retractions, No use of accessory muscles and clear to auscultation bilaterally AUSCULTATION: clear to auscultation bilaterally Cardio: COMMON NORMALS: regular rate, regular rhythm, S1 normal heart sound present and S2 normal heart sound present RATE: regular rate RHYTHM: r egular rhythm HEART SOUNDS: S1 normal heart sound present and S2 normal heart sound present GI: COMMON NORMALS: Normal to inspection, nondistended, normoactive bowel sounds present and non-tender Extremity: COMMON NORMALS: no pedal edema Neuro: SENSORIUM/ORIENTATION: Yes oriented to person, No oriented to place and No oriented to time OTHER: Right-sided hemiaplasia, cannot discern any facial droop, Psych: COMMON NORMALS: mental status grossly normal Data 12/12/24 05:46 12/12/24 05:46 Micro: Microbiology 12/11/24 15:33 Blood Culture - Preliminary Blood NEGATIVE TO DATE 12/11/24 15:39 Blood Culture - Preliminary Blood NEGATIVE TO DATE 12/11/24 15:50 Urine Culture - Preliminary Urine,Clean Catch Gram Negative Rods A&P Assessment and plan (1) Influenza A: (2) Urinary tract infection: Qualifiers: Hematuria presence: with hematuria Urinary tract infection type: acute cystitis Qualified Code(s): N30.01 - Acute cystitis with hematuria (3) Altered mental status: (4) Dehydration: Plan Urinary tract infection, as risk factors for ESBL, penicillin allergy, start meropenem Altered mental status, -Neurochecks -Aspiration precautions -Advance diet as tolerated to cardiac diet -No seizure-like symptoms -NIH stroke scale difficult to assess given diffuse encephalopathy cannot discern any facial droop, she moves bilateral upper and lower extremities, does not follow commands Influenza A, continue Tamiflu History of seizure disorder, continue home seizure medications History of CVA, with residual right-sided deficits History of dementia Aspiration precautions, dysphagia level 4 diet, mildly thickened PDMP PDMP Reviewed: Not Reviewed Attestations 2 Medical Necessity Statement*: Patient requires hospitalization for UTI, altered mental status, influenza A Diagnoses Influenza A J10.1 Urinary tract infection N30.01 Hematuria presence: with hematuria Urinary tract infection type: acute cystitis Altered mental status R41.82 Dehydration E86.0
[2024-12-12] MEDS: tamsulosin 0.4 mg Capsule PO (18:01)
[2024-12-12] MEDS: atorvastatin 40 mg Tablet 20 MG PO (18:01)
[2024-12-12] MEDS: enoxaparin 40 mg/0.4 mL Syringe SUBCUT (20:32)
[2024-12-12] MEDS: pantoprazole 40 mg SDV IVP (20:32)
[2024-12-12] MEDS: quetiapine XR (24HR) 50 mg Tablet 200 MG PO (20:33)
[2024-12-13] VITALS (9 sets, daily range): BP systolic 108–147; BP diastolic 66–82; PULSE 58–83; RESP 14–23; TEMP 36.3–37.1; O2SAT 88–92
[2024-12-13] MEDS: meropenem 500 mg SDV IVP ×3 (03:14→19:31)
[2024-12-13 05:27] LABS: Basophils % 0.8 %; Eosinophils # 0.1 10^3/uL (0.0-0.8); Eosinophils % 1.3 %; Hematocrit 36.4 % (36-47); Lymphocytes # 1.6 10^3/uL (0.8-4.8); Lymphocytes % 43.1 %; Mean Corpuscular HGB Conc 32.7 g/dL (30-55); Mean Corpuscular Hemoglobin 30.2 pg (27-33); Mean Corpuscular Volume 92.4 fl (85-98); Mean Platelet Volume 10.5 fL (7.4-10.4); Monocytes # 0.3 10^3/uL (0.2-0.9); Monocytes % 8.7 %; Neutrophils # 1.73 10^3/uL (1.8-7.7); Neutrophils % 45.8 %; Nucleated Red Blood Cells % 0 %; Platelet Count 141 10^3/cmm (157-399); Red Blood Count 3.94 10^6/uL (3.85-5.65); Red Cell Distribution Width 13.8 % (12.1-15.1); White Blood Count 3.78 10^3/uL (3.29-11.43)
[2024-12-13 05:46] LABS: Alanine Aminotransferase 11 U/L (0-33); Albumin Level 3.1 g/dL (3.5-5.2); Alkaline Phosphatase 60 U/L (35-105); Anion Gap 11.6 (5-19); Aspartate Amino Transferase 21 U/L (0-32); Blood Urea Nitrogen 18 mg/dL (8-23); Calcium 8.1 mg/dL (8.5-10.5); Carbon Dioxide 26 mmol/L (22-29); Chloride 109 mmol/L (98-107); Globulin 2.4 g/dL (1.3-4.6); Glomerular Filtration Rate 100.6 mL/min (90-130); Glucose 74 mg/dL (65-115); Magnesium 1.9 mg/dL (1.7-2.3); Osmolality Calculated 297 mOsm/kg (285-295); Phosphorus 2.4 mg/dL (2.5-4.5); Potassium 3.6 mmol/L (3.5-5.1); Sodium 143 mmol/L (136-145); Total Bilirubin 0.3 mg/dL (0.15-1.2); Total Protein 5.5 g/dL (6.6-8.7)
[2024-12-13] MEDS: ipratropium-albuterol 3 mL Neb INHALATION (08:23)
[2024-12-13] MEDS: aspirin 81 mg EC Tablet PO (08:41)
[2024-12-13] MEDS: amlodipine 10 mg Tablet PO (08:41)
[2024-12-13] MEDS: lisinopril 10 mg Tablet PO (08:41)
[2024-12-13] MEDS: oseltamivir phosphate 75 mg Capsule PO ×2 (08:41→18:19)
[2024-12-13] MEDS: metoprolol succinate ER (24 HR) 50 mg Tablet 25 MG PO (08:41)
[2024-12-13] MEDS: sertraline 50 mg Tablet 25 MG PO (08:41)
[2024-12-13] MEDS: lamoTRIgine 100 mg Tablet 150 MG PO ×2 (08:42→18:20)
--- NOTE | 2024-12-13 09:44 | PC.PHAR ---
Current med list shows pt hasn't taken most medications since of this last week.
--- NOTE | 2024-12-13 10:03 | PC.PHAR ---
Pt is resident at [facility]
--- NOTE | 2024-12-13 12:09 | PC.CHAP ---
Pastoral Care Encounter/Spiritual Assessment Type of Contact [] Declined sample body builder visit [] Patient/Family/Request visit [] Outpatient visit [] Follow-up visit [] Physician referral [] Code/Alert [x] Routine visit [] Staff referral [] Actively dying [] Patient sleeping [] Family support [] [] Out of room [] Palliative care [] [] Receiving care in room [] Pre-surgical visit [] Trauma [] Long length of stay [] ICU visit [x] Other: STOP Relational/Emotional Strength [] Patient feels connected with others/family/visitors/staff [] Distress [] Loneliness/isolation [] Abandonment Spirituality of Patient [] Person of Oma [] Attends Restorationist of their Oma [] Believes in Prayer [] Reads Bible or Synagogue materials [] There are Spiritual issues to be addressed Bingo Worker Interventions [] Prayer [] Active listening [] Non-anxious presence [] Spiritual/emotional support [] Crisis/trauma care [] Spiritual counseling [] Bereavement support [] Provided bereavement packet [] Provided Bible/devotional materials [] Provided toy/stuffed animal, coloring book to patient or family member [] Provided Communion [] Anointing/[place] [] Salvation [] Completed spiritual assessment [] Other: Impact on Illness or Injury [] Angry [] Fearful [] Anxious [] Often cries [] Exhaustion [] Unable to work [] Unable to attend advent [] Unable to walk/stand [] Unable to read [] Unable to drive [] Unable to eat/drink [] Unable to sleep [] Unable to be with family [] Patient intubated [] Other: Summary Time spent with patient
--- NOTE | 2024-12-13 14:49 | P.PN_ITS ---
Subjective 2 Subjective: Patient was seen this morning, she is alert and oriented x 1, she follows commands, she has no complaints this morning Vitals/I&O/Wt Last Vital Signs Temp 97.6 F 12/13/24 11:26 Pulse 67 12/13/24 11:26 Resp 14 12/13/24 11:26 BP 127/71 12/13/24 11:26 Pulse Ox 92 12/13/24 11:26 O2 Del Method Nasal Cannula 12/13/24 11:26 O2 Flow Rate 2 12/13/24 08:26 12/12/24 12/13/24 12/13/24 22:59 06:59 14:59 Intake Total 1000 / 2240 0 / 2240 230 / 230 Balance 1000 / 2240 0 / 2240 230 / 230 Weight last 48 hrs Weight 63.14 kg Weight 63.503 kg Weight 63.503 kg Weight 59.874 kg Physical Exam 2 Const: COMMON NORMALS: no acute distress ORIENTATION/CONSCIOUSNESS: Yes awake and Yes oriented to person; not oriented to place and not oriented to time Resp: COMMON NORMALS: normal respiratory effort, No retractions, No use of accessory muscles and clear to auscultation bilaterally AUSCULTATION: clear to auscultation bilaterally Cardio: COMMON NORMALS: regular rate, regular rhythm, S1 normal heart sound present and S2 normal heart sound present RATE: regular rate RHYTHM: r egular rhythm HEART SOUNDS: S1 normal heart sound present and S2 normal heart sound present GI: COMMON NORMALS: Normal to inspection, nondistended, normoactive bowel sounds present and non-tender Extremity: COMMON NORMALS: no pedal edema Neuro: SENSORIUM/ORIENTATION: Yes oriented to person, No oriented to place and No oriented to time OTHER: Right sided weakness Data 12/13/24 05:05 12/13/24 05:05 Micro: Microbiology 12/11/24 15:50 Urine Culture - Final Urine,Clean Catch Escherichia coli 12/11/24 15:33 Blood Culture - Preliminary Blood NEGATIVE TO DATE 12/11/24 15:39 Blood Culture - Preliminary Blood NEGATIVE TO DATE A&P Assessment and plan (1) Influenza A: (2) Urinary tract infection: Qualifiers: Hematuria presence: with hematuria Urinary tract infection type: acute cystitis Qualified Code(s): N30.01 - Acute cystitis with hematuria (3) Altered mental status: (4) Dehydration: Plan Urinary tract infection, as risk factors for ESBL, penicillin allergy, start meropenem Altered mental status, -Neurochecks -Aspiration precautions -Advance diet as tolerated to cardiac diet -No seizure-like symptoms -NIH stroke scale difficult to assess given diffuse encephalopathy cannot discern any facial droop, she moves bilateral upper and lower extremities, does not follow commands Influenza A, continue Tamiflu History of seizure disorder, continue home seizure medications History of CVA, with residual right-sided deficits History of dementia Aspiration precautions, dysphagia level 4 diet, mildly thickened PDMP PDMP Reviewed: Not Reviewed Attestations 2 Medical Necessity Statement*: Patient requires hospitalization for UTI, influenza A, Diagnoses Influenza A J10.1 Urinary tract infection N30.01 Hematuria presence: with hematuria Urinary tract infection type: acute cystitis Altered mental status R41.82 Dehydration E86.0
[2024-12-13] MEDS: atorvastatin 40 mg Tablet 20 MG PO (18:19)
[2024-12-13] MEDS: tamsulosin 0.4 mg Capsule PO (18:20)
[2024-12-13] MEDS: enoxaparin 40 mg/0.4 mL Syringe SUBCUT (19:31)
[2024-12-13] MEDS: pantoprazole 40 mg SDV IVP (19:31)
[2024-12-13] MEDS: quetiapine XR (24HR) 50 mg Tablet 200 MG PO (21:18)
[2024-12-14] VITALS (8 sets, daily range): BP systolic 100–154; BP diastolic 56–85; PULSE 69–82; RESP 16–22; TEMP 36.4–36.8; O2SAT 88–94
[2024-12-14] MEDS: meropenem 500 mg SDV IVP ×2 (04:04→11:22)
[2024-12-14 06:00] LABS: Basophils % 0.3 %; Eosinophils # 0.1 10^3/uL (0.0-0.8); Eosinophils % 2.5 %; Hematocrit 41.2 % (36-47); Lymphocytes # 1.7 10^3/uL (0.8-4.8); Lymphocytes % 44.1 %; Mean Corpuscular HGB Conc 32.3 g/dL (30-55); Mean Corpuscular Hemoglobin 29.6 pg (27-33); Mean Corpuscular Volume 91.6 fl (85-98); Mean Platelet Volume 11.7 fL (7.4-10.4); Monocytes # 0.4 10^3/uL (0.2-0.9); Monocytes % 8.9 %; Neutrophils # 1.75 10^3/uL (1.8-7.7); Neutrophils % 44.2 %; Nucleated Red Blood Cells % 0 %; Platelet Count 129 10^3/cmm (157-399); Red Cell Distribution Width 13.6 % (12.1-15.1); White Blood Count 3.95 10^3/uL (3.29-11.43)
[2024-12-14 06:28] LABS: Alanine Aminotransferase 14 U/L (0-33); Albumin Level 3.3 g/dL (3.5-5.2); Alkaline Phosphatase 65 U/L (35-105); Anion Gap 11.8 (5-19); Aspartate Amino Transferase 27 U/L (0-32); Blood Urea Nitrogen 11 mg/dL (8-23); Calcium 8.3 mg/dL (8.5-10.5); Carbon Dioxide 30 mmol/L (22-29); Chloride 104 mmol/L (98-107); Globulin 2.6 g/dL (1.3-4.6); Glomerular Filtration Rate 100.6 mL/min (90-130); Glucose 74 mg/dL (65-115); Magnesium 1.8 mg/dL (1.7-2.3); Osmolality Calculated 292 mOsm/kg (285-295); Phosphorus 2.3 mg/dL (2.5-4.5); Potassium 3.8 mmol/L (3.5-5.1); Sodium 142 mmol/L (136-145); Total Bilirubin 0.4 mg/dL (0.15-1.2); Total Protein 5.9 g/dL (6.6-8.7)
[2024-12-14 06:57] LABS: Slide Review Slide Review Perform
[2024-12-14] MEDS: amlodipine 10 mg Tablet PO (08:19)
[2024-12-14] MEDS: oseltamivir phosphate 75 mg Capsule PO ×2 (08:19→17:45)
[2024-12-14] MEDS: lisinopril 10 mg Tablet PO (08:20)
[2024-12-14] MEDS: lamoTRIgine 100 mg Tablet 150 MG PO ×2 (08:20→17:45)
[2024-12-14] MEDS: sertraline 50 mg Tablet 25 MG PO (08:20)
[2024-12-14] MEDS: aspirin 81 mg EC Tablet PO (08:20)
[2024-12-14] MEDS: metoprolol succinate ER (24 HR) 50 mg Tablet 25 MG PO (08:20)
--- NOTE | 2024-12-14 12:30 | P.PN_ITS ---
Subjective 2 Subjective: Patient was examined this morning, she is much more alert awake, she can follow commands, she denies any pain complaints Vitals/I&O/Wt Last Vital Signs Temp 98 F 12/14/24 11:44 Pulse 77 12/14/24 11:44 Resp 16 12/14/24 11:44 BP 154/85 12/14/24 11:44 Pulse Ox 91 12/14/24 11:44 O2 Del Method Nasal Cannula 12/14/24 11:44 O2 Flow Rate 2 12/14/24 10:09 12/13/24 12/14/24 12/14/24 22:59 06:59 14:59 Intake Total 120 / 350 120 / 120 Balance 120 / 350 120 / 120 Weight last 48 hrs Weight 61.734 kg Weight 63.14 kg Physical Exam 2 Const: COMMON NORMALS: no acute distress ORIENTATION/CONSCIOUSNESS: Yes awake and Yes oriented to person; not oriented to place and not oriented to time Resp: COMMON NORMALS: normal respiratory effort, No retractions, No use of accessory muscles and clear to auscultation bilaterally AUSCULTATION: clear to auscultation bilaterally Cardio: COMMON NORMALS: regular rate, regular rhythm, S1 normal heart sound present and S2 normal heart sound present RATE: regular rate RHYTHM: r egular rhythm HEART SOUNDS: S1 normal heart sound present and S2 normal heart sound present GI: COMMON NORMALS: Normal to inspection, nondistended, normoactive bowel sounds present and non-tender Extremity: COMMON NORMALS: no pedal edema Neuro: SENSORIUM/ORIENTATION: Yes oriented to person, No oriented to place and No oriented to time Data 12/14/24 04:55 12/14/24 04:55 Micro: Microbiology 12/11/24 15:50 Urine Culture - Final Urine,Clean Catch Escherichia coli A&P Assessment and plan (1) Influenza A: (2) Urinary tract infection: Qualifiers: Hematuria presence: with hematuria Urinary tract infection type: acute cystitis Qualified Code(s): N30.01 - Acute cystitis with hematuria (3) Altered mental status: (4) Dehydration: Plan Urinary tract infection, as risk factors for ESBL, penicillin allergy, urine culture showing pansensitive E. coli, switch to ciprofloxacin Altered mental status, potentially back to her baseline, chronic penitentiary, she has episodes of dementia, troubles with communication, right-sided deficits after her stroke -Neurochecks -Aspiration precautions -Advance diet as tolerated to cardiac diet -No seizure-like symptoms Influenza A, continue Tamiflu, for 5 days History of seizure disorder, continue home seizure medications History of CVA, with residual right-sided deficits History of dementia, at times has difficulty with communication Aspiration precautions, dysphagia level 4 diet, mildly thickened PDMP PDMP Reviewed: Not Reviewed Attestations 2 Medical Necessity Statement*: Patient requires hospitalization for UTI, altered mental status, influenza A Diagnoses Influenza A J10.1 Urinary tract infection N30.01 Hematuria presence: with hematuria Urinary tract infection type: acute cystitis Altered mental status R41.82 Dehydration E86.0
[2024-12-14] MEDS: atorvastatin 40 mg Tablet 20 MG PO (17:45)
[2024-12-14] MEDS: tamsulosin 0.4 mg Capsule PO (17:45)
[2024-12-14] MEDS: ciprofloxacin 500 mg Tablet PO (20:39)
[2024-12-14] MEDS: quetiapine XR (24HR) 50 mg Tablet 200 MG PO (20:39)
[2024-12-14] MEDS: enoxaparin 40 mg/0.4 mL Syringe SUBCUT (20:39)
[2024-12-14] MEDS: pantoprazole 40 mg SDV IVP (20:39)
[2024-12-15 04:00] VITALS: BP 101/68; PULSE 73; RESP 17; TEMP 36.9; O2SAT 90
[2024-12-15 04:07] LABS: Basophils % 0.4 %; Eosinophils # 0.2 10^3/uL (0.0-0.8); Eosinophils % 3.5 %; Lymphocytes # 2.2 10^3/uL (0.8-4.8); Lymphocytes % 45.6 %; Mean Corpuscular HGB Conc 32.3 g/dL (30-55); Mean Corpuscular Hemoglobin 29.6 pg (27-33); Mean Corpuscular Volume 91.7 fl (85-98); Mean Platelet Volume 11.5 fL (7.4-10.4); Monocytes # 0.5 10^3/uL (0.2-0.9); Monocytes % 9.4 %; Neutrophils # 2.01 10^3/uL (1.8-7.7); Neutrophils % 40.9 %; Nucleated Red Blood Cells % 0 %; Platelet Count 138 10^3/cmm (157-399); Red Blood Count 4.36 10^6/uL (3.85-5.65); Red Cell Distribution Width 13.3 % (12.1-15.1); White Blood Count 4.91 10^3/uL (3.29-11.43)
[2024-12-15 04:24] LABS: Anion Gap 12.7 (5-19); Blood Urea Nitrogen 15 mg/dL (8-23); Calcium 8.2 mg/dL (8.5-10.5); Carbon Dioxide 30 mmol/L (22-29); Chloride 104 mmol/L (98-107); Glomerular Filtration Rate 100.6 mL/min (90-130); Glucose 89 mg/dL (65-115); Osmolality Calculated 296 mOsm/kg (285-295); Potassium 3.7 mmol/L (3.5-5.1); Sodium 143 mmol/L (136-145)
[2024-12-15 07:28] VITALS: BP 107/53; PULSE 61; RESP 16; TEMP 36.6; O2SAT 95
[2024-12-15] MEDS: ciprofloxacin 500 mg Tablet PO (08:51)
[2024-12-15] MEDS: metoprolol succinate ER (24 HR) 50 mg Tablet 25 MG PO (08:52)
[2024-12-15] MEDS: oseltamivir phosphate 75 mg Capsule PO (08:52)
[2024-12-15] MEDS: aspirin 81 mg EC Tablet PO (08:52)
[2024-12-15] MEDS: lisinopril 10 mg Tablet PO (08:52)
[2024-12-15] MEDS: amlodipine 10 mg Tablet PO (08:52)
[2024-12-15] MEDS: sertraline 50 mg Tablet 25 MG PO (08:52)
[2024-12-15] MEDS: lamoTRIgine 100 mg Tablet 150 MG PO (08:52)
[2024-12-15 10:00] VITALS: PULSE 74; RESP 18; O2SAT 95
[2024-12-15 11:51] VITALS: BP 102/44; PULSE 68; RESP 15; TEMP 36.6; O2SAT 92
--- NOTE | 2024-12-15 12:29 | PM.DCS ---
Discharge Providers Date of Admission: 12/11/24 19:01 Date of Discharge: December 15, 2024 Attending Provider at Admission: Arturo Elise MD Attending Provider at Discharge: Arturo Elise MD Primary Care Provider: Jr Cardenas MD Diagnoses at Discharge Discharge Diagnosis (1) Influenza A: Status: Acute (2) Urinary tract infection: Status: Acute Qualifiers: Hematuria presence: with hematuria Urinary tract infection type: acute cystitis Qualified Code(s): N30.01 - Acute cystitis with hematuria (3) Altered mental status: Status: Acute (4) Dehydration: Status: Acute Reason for Visit Reason for Visit: lethargic Hospital Course Hospital Course Sherri Mcintyre is a 64 year old female with a past medical history with a past medical history of CVA, vascular dementia, cerebral aneurysm, COPD, hypertension, hyperlipidemia, seizure disorder who presents to [facility] due to altered mental status. Currently patient is alert, awake, she responds to her name, but I cannot get any other history from her, she has spontaneous movement of her upper lower extremities, is diffusely encephalopathic, GCS score is 12, maintaining her airway, currently on 2 L, normotensive, heart rates sinus tachycardia 102, according to ER provider patient was sent over from the retirement due to O2 sats 88% on room air, patient was less responsive, had encephalopathy Patient presented to [facility] for altered mental status, UTI, influenza A. Patient received broad-spectrum antibiotic therapy, overall clinically improved, will be discharged on ciprofloxacin, Tamiflu, discharged to the retirement. Patient has a history of dementia, history of CVA, with residual right-sided deficits, on discharge she is back to her baseline as per my discussion with nursing,, she continues to have right-sided weakness, her mentation has improved, but continues to have episodes of confusion which is likely her baseline, alert to person, to place, not to time, can follow commands. Physical Exam Const: COMMON NORMALS: no acute distress ORIENTATION/CONSCIOUSNESS: Yes awake, Yes oriented to person and Yes oriented to place; not oriented to time Resp: COMMON NORMALS: normal respiratory effort, No retractions, No use of accessory muscles and clear to auscultation bilaterally AUSCULTATION: clear to auscultation bilaterally Cardio: COMMON NORMALS: regular rate, regular rhythm, S1 normal heart sound present and S2 normal heart sound present RATE: regular rate RHYTHM: regular rhythm HEART SOUNDS: S1 normal heart sound present and S2 normal heart sound present GI: COMMON NORMALS: Normal to inspection, nondistended, normoactive bowel sounds present and non-tender Extremity: COMMON NORMALS: no pedal edema Neuro: SENSORIUM/ORIENTATION: Yes oriented to person, Yes oriented to place and No oriented to time Psych: COMMON NORMALS: mental status grossly normal Discharge Data Studies Completed and Pending Completed Studies During Hospitalization Category Date Time Status CT head wo con* [id number] Stat Cat Scan 12/11/24 14:57 Completed XR chest 1V portable [id number] Stat Exams 12/11/24 14:37 Completed Pending at discharge Category Date Time Status Basic Metabolic Panel AM LABS Lab 12/16/24 04:00 Ordered Basic Metabolic Panel AM LABS Lab 12/17/24 04:00 Ordered Blood Culture Stat Lab 12/11/24 15:33 Results Complete Blood Count w/Auto AM LABS Lab 12/16/24 04:00 Ordered Complete Blood Count w/Auto AM LABS Lab 12/17/24 04:00 Ordered Radiology Impressions Chest X-Ray 12/11/24 14:37 IMPRESSION: 1. No acute cardiopulmonary process. Head CT 12/11/24 14:57 IMPRESSION: No acute intracranial abnormality. Laboratory Results WBC 4.91 10^3/uL (3.29-11.43) 12/15/24 03:20 RBC 4.36 10^6/uL (3.85-5.65) 12/15/24 03:20 Hgb 12.90 g/dL (11.27-16.99) 12/15/24 03:20 Hct 40.0 % (36-47) 12/15/24 03:20 MCV 91.7 fl (85-98) 12/15/24 03:20 MCH 29.6 pg (27-33) 12/15/24 03:20 MCHC 32.3 g/dL (30-55) 12/15/24 03:20 RDW 13.3 % (12.1-15.1) 12/15/24 03:20 Plt Count 138 10^3/cmm (157-399) L 12/15/24 03:20 MPV 11.5 fL (7.4-10.4) H 12/15/24 03:20 Neut % (Auto) 40.9 % 12/15/24 03:20 Lymph % (Auto) 45.6 % 12/15/24 03:20 Dukes % (Auto) 9.4 % 12/15/24 03:20 Eos % (Auto) 3.5 % 12/15/24 03:20 Baso % (Auto) 0.4 % 12/15/24 03:20 Neut # (Auto) 2.01 10^3/uL (1.8-7.7) 12/15/24 03:20 Lymph # (Auto) 2.2 10^3/uL (0.8-4.8) 12/15/24 03:20 Dukes # (Auto) 0.5 10^3/uL (0.2-0.9) 12/15/24 03:20 Eos # (Auto) 0.2 10^3/uL (0.0-0.8) 12/15/24 03:20 Baso # (Auto) 0.0 10^3/uL (0.0-0.1) 12/15/24 03:20 Nucleated RBC % (auto) 0 % 12/15/24 03:20 Nucleated RBCs # 0.0 /100WBC 12/15/24 03:20 PT 14.20 SECONDS (12.1-14.9) 12/11/24 20:06 INR 1.03 (0.8-1.2) 12/11/24 20:06 Sodium 143 mmol/L (136-145) 12/15/24 03:20 Potassium 3.7 mmol/L (3.5-5.1) 12/15/24 03:20 Chloride 104 mmol/L (98-107) 12/15/24 03:20 Carbon Dioxide 30 mmol/L (22-29) H 12/15/24 03:20 Anion Gap 12.7 (5-19) 12/15/24 03:20 BUN 15 mg/dL (8-23) 12/15/24 03:20 Creatinine 0.6 mg/dL (0.5-0.9) 12/15/24 03:20 GFR Calculation 100.6 mL/min (90-130) 12/15/24 03:20 Glucose 89 mg/dL (65-115) 12/15/24 03:20 Estimat Average Glucose 103 12/11/24 20:06 Hemoglobin A1c 5.2 % (4.0-6.0) 12/11/24 20:06 Calculated Osmolality 296 mOsm/kg (285-295) H 12/15/24 03:20 Lactic Acid 0.8 mmol/L (0.5-2.2) 12/11/24 15:33 Calcium 8.2 mg/dL (8.5-10.5) L 12/15/24 03:20 Phosphorus 2.3 mg/dL (2.5-4.5) L 12/14/24 04:55 Magnesium 1.8 mg/dL (1.7-2.3) 12/14/24 04:55 Total Bilirubin 0.4 mg/dL (0.15-1.2) 12/14/24 04:55 AST 27 U/L (0-32) 12/14/24 04:55 ALT 14 U/L (0-33) 12/14/24 04:55 Alkaline Phosphatase 65 U/L (35-105) 12/14/24 04:55 Ammonia 31 umol/L (11-51) 12/11/24 15:33 Creatine Kinase 635 U/L (26-192) H* 12/11/24 15:33 C-Reactive Protein 73.3 mg/L (0.0-4.9) H 12/11/24 15:33 NT-Pro-B Natriuret Pep 379 pg/mL (0-125) H 12/11/24 20:06 Total Protein 5.9 g/dL (6.6-8.7) L 12/14/24 04:55 Albumin 3.3 g/dL (3.5-5.2) L 12/14/24 04:55 Globulin 2.6 g/dL (1.3-4.6) 12/14/24 04:55 Procalcitonin 0.08 ng/mL (0-0.5) 12/11/24 15:33 TSH 0.76 uIU/mL (0.27-4.20) 12/11/24 20:06 Urine Color Yellow (Yellow) 12/11/24 15:50 Urine Appearance Clear (CLEAR) 12/11/24 15:50 Urine pH 5.0 (5-7) 12/11/24 15:50 Ur Specific [place] 1.027 (1.005-1.030) 12/11/24 15:50 Urine Protein 1+ (Negative) A 12/11/24 15:50 Urine Glucose (UA) Negative (Normal) 12/11/24 15:50 Urine Ketones 1+ (Negative) H 12/11/24 15:50 Urine Blood 2+ (Negative) A 12/11/24 15:50 Urine Nitrate Positive (Negative) A 12/11/24 15:50 Urine Bilirubin Negative (Negative) 12/11/24 15:50 Urine Urobilinogen 1.0 mg/dL (Negative) 12/11/24 15:50 Ur Leukocyte Esterase Trace (Negative) A 12/11/24 15:50 Urine RBC 0-2 /hpf (0-2) 12/11/24 15:50 Urine WBC 11-20 /hpf (0-5) H 12/11/24 15:50 Ur Squamous Epith Cells 11-20 /hpf (0-5) H 12/11/24 15:50 Amorphous Sediment Not Reportable 12/11/24 15:50 Urine Bacteria 4+ /hpf (NONE) H 12/11/24 15:50 Hyaline Casts 0.81 /lpf 12/11/24 15:50 Salicylates < 0.3 mg/dL (3-10) L 12/11/24 15:33 Urine Opiates Screen Negative ng/mL (Negative) 12/11/24 15:50 Acetaminophen < 5.0 ug/mL (10-30) L 12/11/24 15:33 Ur Barbiturates Screen Negative ng/mL (Negative) 12/11/24 15:50 Ur Phencyclidine Scrn Negative ng/mL (Negative) 12/11/24 15:50 Ur Amphetamines Screen Negative ng/mL (Negative) 12/11/24 15:50 U Benzodiazepines Scrn Negative ng/mL (Negative) 12/11/24 15:50 Urine Cocaine Screen Negative ng/mL (Negative) 12/11/24 15:50 U Marijuana (THC) Screen Negative ng/mL (Negative) 12/11/24 15:50 Ethyl Alcohol < 10 mg/dL (0-10) 12/11/24 15:33 Serum Ketones Negative (Negative) 12/11/24 15:33 Influenza A (PCR) Positive (Negative) 12/11/24 15:23 Influenza Type B (PCR) Negative (Negative) 12/11/24 15:23 RSV (PCR) Negative (Negative) 12/11/24 15:23 SARS-CoV-2 (PCR) Negative (Negative) 12/11/24 15:23 Vitals Last Vital Signs Temp 97.8 F 12/15/24 11:51 Pulse 68 12/15/24 11:51 Resp 15 12/15/24 11:51 BP 102/44 12/15/24 11:51 Pulse Ox 92 12/15/24 11:51 O2 Del Method Nasal Cannula 12/15/24 11:51 O2 Flow Rate 2 12/15/24 11:51 Discharge Plan Discharge Patient Disposition: Home Condition: Stable Prescriptions: New sertraline 50 mg Tablet 25 mg PO DAILY@08 30 Days Qty: 15 0RF ciprofloxacin HCl 500 mg Tablet 500 mg PO BID@0900,2100 5 Days Qty: 10 0RF oseltamivir 75 mg Capsule 75 mg PO BID 1 Days Qty: 2 0RF Continued lamotrigine 150 mg tablet 150 mg PO BID@08,18 pantoprazole 20 mg tablet,delayed release (DR/EC) 20 mg PO BID@06,18 tamsulosin 0.4 mg capsule 0.4 mg PO DAILY@18 simvastatin 20 mg tablet 20 mg PO DAILY@18 lisinopril 10 mg tablet 10 mg PO DAILY Qty: 30 0RF acetaminophen [Tylenol] 325 mg Tablet 650 mg PO Q6H PRN (Reason: Pain) guaifenesin [Irma-Tussin] 100 mg/5 mL Liquid 200 mg PO Q6H PRN (Reason: Congestion) potassium chloride 20 mEq tablet,ER particles/crystals 20 meq PO DAILY@08 formoterol fumarate [Perforomist] 20 mcg/2 mL solution for nebulization 2 ml INHALATION BID@08,18 albuterol sulfate 90 mcg/actuation HFA aerosol inhaler 2 puff inhalation Q6H PRN (Reason: shortness of breath or wheezing) aspirin 81 mg Tablet,Delayed Release (Dr/Ec) 81 mg PO DAILY Qty: 30 0RF amlodipine 10 mg tablet 10 mg PO DAILY loratadine 10 mg Tablet 10 mg PO DAILY budesonide 0.5 mg/2 mL suspension for nebulization 0.5 mg inhalation BID metoprolol succinate 25 mg tablet extended release 24 hr 25 mg PO DAILY sertraline 50 mg tablet 50 mg PO BEDTIME quetiapine 150 mg tablet extended release 24 hr 150 mg PO BEDTIME Discharge Orders: Discharge Order (Routine); Ordered 12/15/24 Ordered By: Arturo Elise Referrals: Jr Cardenas MD [Primary Care Provider] - Discharge Diet: Cardiac Discharge Activity: Resume usual activity Patient Instructions: Opioid Safety Discharge Attestations Time Spent in Discharge Care*: greater than 30 min Status at Discharge: Cognitive status at discharge: moderately impaired cognition, Behavioral status at discharge: cooperative, Quality Metrics Clinical Quality Measures [ No reported AMI, CVA or VTE this stay] Coding Level of Care Code 84003 Total time (in minutes) for Discharge: 45 Diagnoses Influenza A J10.1 Urinary tract infection N30.01 Hematuria presence: with hematuria Urinary tract infection type: acute cystitis Altered mental status R41.82 Dehydration E86.0
--- NOTE | 2024-12-15 12:57 | PC.NURSE ---
Report called to Francisco Javier MEEK at [facility].
[2024-12-15 12:58] VITALS: BP 102/44; PULSE 68; RESP 15; TEMP 36.6; O2SAT 92
--- NOTE | 2024-12-15 13:01 | PC.NURSE ---
Alana Adrian advised that pt is being discharged back to [facility] today.
--- NOTE | 2024-12-15 14:01 | PC.NURSE ---
Jason Archer here to transport pt to [facility].
== END 2024-12-15 14:03 | disposition home or self-care (01) | DRG 193 ==
LOC: ER 18:31 → MEDSURG 19:01
PROVIDERS: Admitting Provider Family Medicine; Emergency Provider Family Medicine; PCP Internal Medicine; Visit Provider Family Medicine
DX: J10.1 Influenza due to other identified influenza virus with other respiratory manifestations (principal); G93.41 Metabolic encephalopathy; I69.351 Hemiplegia and hemiparesis following cerebral infarction affecting right dominant side; N30.01 Acute cystitis with hematuria; Z79.899 Other long term (current) drug therapy; Z86.79 Personal history of other diseases of the circulatory system; K21.9 Gastro-esophageal reflux disease without esophagitis; E78.5 Hyperlipidemia, unspecified; I10 Essential (primary) hypertension; F01.50 Vascular dementia, unspecified severity, without behavioral disturbance, psychotic disturbance, mood disturbance, and anxiety; G40.909 Epilepsy, unspecified, not intractable, without status epilepticus; J44.9 Chronic obstructive pulmonary disease, unspecified; R32 Unspecified urinary incontinence; Z98.890 Other specified postprocedural states; Z82.3 Family history of stroke; Z88.0 Allergy status to penicillin; Z99.89 Dependence on other enabling machines and devices; E86.0 Dehydration; B96.20 Unspecified Escherichia coli [E. coli] as the cause of diseases classified elsewhere; Z79.82 Long term (current) use of aspirin; Z79.51 Long term (current) use of inhaled steroids; Z99.81 Dependence on supplemental oxygen; Z80.7 Family history of other malignant neoplasms of lymphoid, hematopoietic and related tissues
CPT/HCPCS: 36415; 70450; 71045; 80048; 80053; 80306; 80307; 81001; 82009; 82140; 82550; 83036; 83605; 83735; 83880; 84100; 84145; 84443; 85025; 85610; 86140; 87040; 87077; 87086; 87186; 87637; 92523; 92610; 93005; 94640; 94664; 96365; 96372; 99285; J0744; J1650; J2185; J2470; J7030; J9999

== ENCOUNTER 2025-03-04 13:06 | Emergency (ER) | payer MEDICARE, MEDICAID, SELFPAY ==
[2025-03-04 13:07] VITALS: BP 195/114; PULSE 119; RESP 18; TEMP 36.6; O2SAT 90; BMI 25.7
--- NOTE | 2025-03-04 13:12 | XR_ITS ---
WS: [id number] Portable AP semiupright chest, 03/04/2025 Clinical Data: cva Comparison: Portable chest, 12/11/2024 Findings: No nodules, masses or effusions are seen. The heart is normal. The pulmonary vascularity is not increased. No pneumonia or pneumothorax is seen. The aortic arch and descending thoracic aorta show calcification and tortuosity. There are monitor leads on the chest wall. XR/XR chest 1V portable [id number] Impression: Atherosclerosis.
--- NOTE | 2025-03-04 13:12 | CT_ITS ---
WS: [id number] CT HEAD TECHNIQUE: Noncontrast CT of the head obtained from the skullbase to the vertex. CLINICAL INFORMATION: Symptoms of acute stroke COMPARISON: None. DLP: All CT scans at [facility] use at least one of these dose optimization techniques: automated exposure control; mA and/or kV adjustment per patient size (includes targeted exams where dose is matched to clinical indication); or iterative reconstruction. FINDINGS: Acute intraparenchymal hematoma involving the RIGHT thalamus measuring 2.6 x 1.7 cm with intraventricular extension of blood products. Blood products in the RIGHT lateral ventricle extending into the third ventricle. Blood products extend into the RIGHT atrial horn. No significant hydrocephalus. Prior chronic LEFT frontal and pterional craniotomies with aneurysm clips along the anterior communicating artery and LEFT MCA trifurcation. Chronic encephalomalacia LEFT anterior temporal lobe. Chronic encephalomalacia LEFT inferior frontal lobe with ex vacuo dilatation LEFT lateral ventricle unchanged. Fourth ventricle is patent. Ambient cisterns are patent. Advanced small vessel changes. Paranasal sinuses and mastoid air cells are well aerated. CT/CT head thrombolytic 64560 IMPRESSION: 1. Intraparenchymal hematoma RIGHT thalamus measuring 2.6 x 1.7 cm likely hype rtensive with intraventricular extension of blood products into the RIGHT later al ventricle and third ventricle. 2. Fourth ventricle and ambient cisterns remain patent. 3. Chronic aneurysm clips anterior communicating artery and LEFT MCA trifurcat ion with chronic encephalomalacia LEFT inferior frontal lobe and LEFT anterior temporal lobe unchanged. Notified Jaron Allen MD at 03/04/2025 1:31 PM.
--- NOTE | 2025-03-04 13:15 | W.ED.AMS ---
HPI - Altered Mental Status General: Chief Complaint: Altered Mental Status Stated Complaint: AMS Time Seen by Provider: 03/04/25 13:07 Source: EMS Mode of arrival: EMS Limitations: altered mental status History of Present Illness: 65-year-old female has had a history of stroke in the past she is here from skilled nursing for increased altered mental status. Per EMS patient's typically able to converse there she has been completely nonverbal she is responsive here but is nonverbal unable to answer any questions has old deficits from previous stroke no recent illness. Related Data Home Medications ?Medication ?Instructions ?Recorded ?Confirmed lamotrigine 150 mg tablet 150 mg PO BID@08,18 12/30/19 12/13/24 pantoprazole 20 mg tablet,delayed 20 mg PO BID@06,12/30/19 12/13/24 release simvastatin 20 mg tablet 20 mg PO DAILY@18 12/30/19 12/13/24 tamsulosin 0.4 mg capsule 0.4 mg PO DAILY@18 12/30/19 12/13/24 acetaminophen 325 mg tablet 650 mg PO Q6H PRN Pain 03/12/23 12/13/24 (Tylenol) albuterol sulfate 90 mcg/actuation 2 puff inhalation Q6H PRN 03/12/23 12/13/24 aerosol inhaler shortness of breath or wheezing formoterol fumarate 20 mcg/2 mL 2 ml inhalation BID@08,18 03/12/23 12/13/24 solution for nebulization (Perforomist) guaifenesin 100 mg/5 mL oral 200 mg PO Q6H PRN Congestion 03/12/23 12/13/24 liquid (Irma-Tussin) potassium chloride 20 mEq 20 meq PO DAILY@08 03/12/23 12/13/24 tablet,extended release(part/cryst) amlodipine 10 mg tablet 10 mg PO DAILY 03/26/23 12/13/24 loratadine 10 mg tablet 10 mg PO DAILY 03/26/23 12/13/24 budesonide 0.5 mg/2 mL suspension 0.5 mg inhalation BID 12/13/24 12/13/24 for nebulization metoprolol succinate 25 mg 25 mg PO DAILY 12/13/24 12/13/24 tablet,extended release 24 hr quetiapine 150 mg tablet,extended 150 mg PO BEDTIME 12/13/24 12/13/24 release 24 hr sertraline 50 mg tablet 50 mg PO BEDTIME 12/13/24 12/13/24 Previous Rx's ?Medication ?Instructions ?Recorded aspirin 81 mg tablet,delayed 81 mg PO DAILY #30 tabs 03/14/23 release lisinopril 10 mg tablet 10 mg PO DAILY #30 tabs 02/04/24 Allergies Allergy/AdvReac Type Severity Reaction Status Date / Time Penicillins Allergy ALGY-Rash Verified 02/04/24 13:50 Review of Systems General: Reports: ROS unobtainable due to mental status PFSH ED PFSH: Medical History Brain aneurysm GERD (gastroesophageal reflux disease) Vitamin D deficiency Incontinence in female Hyperlipidemia CVA (cerebral vascular accident) HTN (hypertension) Dementia, vascular Seizure disorder COPD (chronic obstructive pulmonary disease) Surgical History H/O excision of epidermal inclusion cyst H/O brain surgery History of 2 sections Family History Brother Hodgkins disease Father Stroke Physical Exam Const: COMMON NORMALS: negative for patient oriented x3 HENMT: COMMON NORMALS: normocephalic and atraumatic HEAD & SCALP: normocephalic and atraumatic Eye: COMMON NORMALS: Equal, round and reactive pupils present and EOMs intact bilaterally PUPIL: Yes Equal, round and reactive pupils present Neck/C-Spine: COMMON NORMALS: full ROM and supple Chest: COMMONS NORMALS: normal inspection of the chest and normal palpation of entire chest wall Resp: COMMON NORMALS: normal respiratory effort, No retractions, No use of accessory muscles and clear to auscultation bilaterally AUSCULTATION: clear to auscultation bilaterally Cardio: COMMON NORMALS: regular rate, regular rhythm and No murmurs present (Cardio) RATE: regular rate RHYTHM: regular rhythm GI: COMMON NORMALS: Normal to inspection, nondistended, normoactive bowel sounds present, Soft to palpation, non-tender and no masses PALPATION: Yes Soft to palpation Extremity: COMMON NORMALS: normal to inspection and full ROM Neuro: COMMON NORMALS: negative for patient oriented x3 Psych: COMMON NORMALS: cooperative Skin: COMMON NORMALS: no rashes or lesions noted and no wounds GENERAL SKIN EXAM: no rashes or lesions noted Course Vital Signs: Vital signs: Vital Signs Temperature 97.9 F 03/04/25 13:07 Pulse Rate 119 H 03/04/25 13:07 Respiratory Rate 18 03/04/25 13:07 Blood Pressure 195/114 03/04/25 13:07 Pulse Oximetry 90 03/04/25 13:07 Oxygen Delivery Me thod Room Air 03/04/25 13:07 MDM - Altered Mental Status Medical Decision Making Patient presents here with intracerebral hemorrhage likely hypertensive did give her labetalol having a Cardene drip spoke to [facility] will transfer there by air. Lab Data 03/04/25 13:42 03/04/25 13:[address] 03/04/25 13:12 IMPRESSION: 1. Intraparenchymal hematoma RIGHT thalamus measuring 2.6 x 1.7 cm likely hypertensive with intraventricular extension of blood products into the RIGHT lateral ventricle and third ventricle. 2. Fourth ventricle and ambient cisterns remain patent. 3. 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 Notified Jaron Allen MD at 03/04/2025 1:31 PM. Laboratory Results WBC 7.67 10^3/uL (3.29-11.43) 03/04/25 13:42 RBC 5.19 10^6/uL (3.85-5.65) 03/04/25 13:42 Hgb 15.00 g/dL (11.27-16.99) 03/04/25 13:42 Hct 45.1 % (36-47) 03/04/25 13:42 MCV 86.9 fl (85-98) 03/04/25 13:42 MCH 28.9 pg (27-33) 03/04/25 13:42 MCHC 33.3 g/dL (30-55) 03/04/25 13:42 RDW 13.4 % (12.1-15.1) 03/04/25 13:42 Plt Count 182 10^3/cmm (157-399) 03/04/25 13:42 MPV 11.1 fL (7.4-10.4) H 03/04/25 13:42 Neut % (Auto) 56.4 % 03/04/25 13:42 Lymph % (Auto) 33.9 % 03/04/25 13:42 [place] % (Auto) 7.2 % 03/04/25 13:42 Eos % (Auto) 1.8 % 03/04/25 13:42 Baso % (Auto) 0.4 % 03/04/25 13:42 Neut # (Auto) 4.33 10^3/uL (1.8-7.7) 03/04/25 13:42 Lymph # (Auto) 2.6 10^3/uL (0.8-4.8) 03/04/25 13:42 [place] # (Auto) 0.6 10^3/uL (0.2-0.9) 03/04/25 13:42 Eos # (Auto) 0.1 10^3/uL (0.0-0.8) 03/04/25 13:42 Baso # (Auto) 0.0 10^3/uL (0.0-0.1) 03/04/25 13:42 Nucleated RBC % (auto) 0 % 03/04/25 13:42 Nucleated RBCs # 0.0 /100WBC 03/04/25 13:42 POC Glucose 102 mg/dL (70-110) 03/04/25 13:13 All radiology interpretation(s) finalized by discharge Critical Care Time Critical Care Time: Critical Care Time: Yes Total Critical Care Time: 45 Attestation: The high probability of a clinically significant, sudden or life threatening deterioration of the patient's neur system(s) required my full and direct attention, intervention and personal management. The critical care time is as shown. This time is in addition to time spent performing any reported procedures but includes the following: [x] Data and vital sign review and interpretation [x] Patient assessment, examination and intervention [x] Documentation [x] Medication orders and management Discharge Plan Discharge Patient Disposition: Xfer Short-Term Hosp Clinical Impression: Acute intracerebral hemorrhage Condition: Stable Referrals: Jr Cardenas MD [Primary Care Provider, Internal Medicine] Patient Instructions: Altered Mental Status (ED) Print Language: Tajik Coding Level of Care Code ED Community Health Representative for Donna Brock
[2025-03-04 13:17] LABS: Glucose Point of Care 102 mg/dL (70-110)
[2025-03-04] MEDS: labetalol 5 mg/mL SDV 20mL 10 MG IVP (13:48)
[2025-03-04 13:49] LABS: Basophils % 0.4 %; Eosinophils # 0.1 10^3/uL (0.0-0.8); Eosinophils % 1.8 %; Hematocrit 45.1 % (36-47); Lymphocytes # 2.6 10^3/uL (0.8-4.8); Lymphocytes % 33.9 %; Mean Corpuscular HGB Conc 33.3 g/dL (30-55); Mean Corpuscular Hemoglobin 28.9 pg (27-33); Mean Corpuscular Volume 86.9 fl (85-98); Mean Platelet Volume 11.1 fL (7.4-10.4); Monocytes # 0.6 10^3/uL (0.2-0.9); Monocytes % 7.2 %; Neutrophils # 4.33 10^3/uL (1.8-7.7); Neutrophils % 56.4 %; Nucleated Red Blood Cells % 0 %; Platelet Count 182 10^3/cmm (157-399); Red Blood Count 5.19 10^6/uL (3.85-5.65); Red Cell Distribution Width 13.4 % (12.1-15.1); White Blood Count 7.67 10^3/uL (3.29-11.43)
[2025-03-04 13:51] VITALS: BP 151/115; PULSE 97; RESP 16; O2SAT 90
--- NOTE | 2025-03-04 13:57 | ECG_ITS ---
[facility] Test Date: 2025-03-04 Pat Name: Sherri Mcintyre Department: Room: Gender: Female [employer]: : 1960 Requested By: Jaron Allen Order Number: [id number] Mis MD: Som Kwon M.D. Measurements Intervals [place] Rate: 98 P: 41 ND: 152 QRS: -77 QRSD: 116 T: 43 QT: 367 QTc: 470 Interpretive Statements SINUS RHYTHM LOW QRS VOLTAGE IN PRECORDIAL LEADS [QRS DEFLECTION < 1.0 mV IN CHEST LEADS] POSSIBLE RIGHT VENTRICULAR CONDUCTION DELAY [RSR (QR) IN V1/V2] ANTERIOR MYOCARDIAL INFARCTION , PROBABLY OLD [40+ ms Q WAVE AND/OR ST/T ABNORMALITY IN V3/V4] Compared to ECG 12/11/2024 15:26:50 Sinus tachycardia no longer present Incomplete right bundle-branch block no longer present ST (T wave) deviation no longer present Left anterior fascicular block no longer present Myocardial infarct finding still present Electronically Signed On 03-05-2025 06:02:04 CDT by Som Kwon M.D. [email or web address]
[2025-03-04 14:00] LABS: Bilirubin Urine Negative (Negative); Blood Urine Negative (Negative); Glucose Urine UA Negative (Normal); Ketones Urine Negative (Negative); Leukocyte Esterase Urine Negative (Negative); Nitrate Urine Negative (Negative); Protein Urine Negative (Negative); Specific Gravity, Urine 1.011 (1.005-1.030); Urine Appearance Clear (CLEAR); Urine Color Yellow (Yellow); pH Urine 8.5 (5-7)
[2025-03-04 14:02] LABS: INR 0.89 (0.8-1.2)
[2025-03-04 14:03] LABS: Partial Thromboplastin Time 27.7 SECONDS (23.9-36.7)
[2025-03-04 14:05] LABS: Add Urine Microscopic? YES; Bacteria Urine None Seen /hpf; Hyaline Casts Urine 1.21 /lpf; RBC Urine 0-2 /hpf (0-2); Squamous Epithelial Cell Urine 0-5 /hpf (0-5); WBC Urine 0-5 /hpf (0-5)
[2025-03-04 14:07] LABS: Alanine Aminotransferase 13 U/L (0-33); Albumin Level 4.1 g/dL (3.5-5.2); Alkaline Phosphatase 105 U/L (35-105); Aspartate Amino Transferase 12 U/L (0-32); Blood Urea Nitrogen 10 mg/dL (8-23); Calcium 9.2 mg/dL (8.5-10.5); Carbon Dioxide 29 mmol/L (22-29); Chloride 103 mmol/L (98-107); Creatinine Clr Calc Pharmacy 66.4457; Globulin 3.4 g/dL (1.3-4.6); Glucose 101 mg/dL (65-115); Osmolality Calculated 293 mOsm/kg (285-295); Sodium 142 mmol/L (136-145); Total Bilirubin 0.3 mg/dL (0.15-1.2); Total Protein 7.5 g/dL (6.6-8.7)
[2025-03-04 14:09] LABS: Alcohol Level < 10 mg/dL (0-10); Amphetamines Screen Urine Negative (Negative); Barbiturates Screen Urine Negative (Negative); Benzodiazepines Screen Urine Negative (Negative); Cocaine Screen Urine Negative (Negative); Opiate Screen Urine Negative (Negative); PCP Screen Urine Negative (Negative); THC Screen Urine Negative (Negative)
[2025-03-04] MEDS: nicardipine 20 MG/200 ML PREMIX 150 MG IV (14:24)
== END 2025-03-04 14:31 | disposition short-term general hospital (02) ==
PROVIDERS: Emergency Provider Emergency Medicine; PCP Internal Medicine
DX: I61.9 Nontraumatic intracerebral hemorrhage, unspecified (principal); I10 Essential (primary) hypertension; J44.9 Chronic obstructive pulmonary disease, unspecified; E78.5 Hyperlipidemia, unspecified; Z86.73 Personal history of transient ischemic attack (TIA), and cerebral infarction without residual deficits
CPT/HCPCS: 36416; 51702; 70450; 71045; 80053; 80306; 80307; 81001; 82962; 85025; 85610; 85730; 93005; 96374; 96375; 99285; J2404; J3490